=== PATIENT | female | born 1955 | race Hispanic/Latino ===

== ENCOUNTER 2025-03-29 10:43 | Observation (INO) | payer OTHER ==
--- OUTSIDE RECORDS SUMMARY | 2025-03-29 10:58 | XMS REPORT | Continuity of Care Document ---
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 40 mg = 1 tab, PO, BID, # 60 tab, 0 Refill(s) Norris Coates pantoprazol e (ProtoNix) 40 MG EC tablet pantoprazol e (ProtoNix) 40 MG EC tablet 04-01 00:00: 00 Yes 40mg 40 mg = 1 tab, PO, BID, # 60 tab, 0 Refill(s) Norris santhosh Coates Epic levothyroxi ne 25 mcg (0.025 mg) oral tablet 03-31 20:09: 41 Yes 25 microgram = 1 tab, PO, Daily, # 30 tab, 5 Refill(s), [facility] [id number] Norris Coates levothyroxi ne (Synthroid, Levoxyl) 25 MCG tablet levothyroxi ne (Synthroid, Levoxyl) 25 MCG tablet 03-31 00:00: 00 12-08 00:00 :00 No 25ug 25 microgram = 1 tab, PO, Daily, # 30 tab, 5 Refill(s), Pharmacy: [facility] [id number] Norris Coates Epic Premarin 0.625 mg oral tablet 12-14 22:45: 30 Yes 0.625 mg = 1 tab, PO, Daily, # 30 tab, 5 Refill(s), [facility] [id number] Norris Coates estrogens, conjugated, (Premarin) 0.625 MG tablet estrogens, conjugated, (Premarin) 0.625 MG tablet 12-14 00:00: 00 12-08 00:00 :00 No .625mg 0.625 mg = 1 tab, PO, Daily, # 30 tab, 5 Refill(s), Pharmacy: [facility] [id number] Kayenancy santhosh Jaxon Leahy Ciprofloxac in 500 MG Oral Tablet [Cipro] 11-21 21:43: 00 Yes 500 mg = 1 tab, PO, Q12H, # 28 tab, 0 Refill(s) Kayenancy santhosh Coates Lexapro 11-20 23:00: 00 No Notes: (Same as: Lexapro) Kayenancy Milanann NS 1,000 mL 11-20 16:06: 00 No 1,000 mL, Rate: 100 ml/hr, Infuse over: 10 hr, Route: IV, Dosing Weight 72.273 kg, Total Volume: 1,000, Start date: 11/20/14 10:06:00, Duration: 30 day, Stop date: 12/20/14 10:05:00 Kayenancy santhosh Koppel Ciprofloxac in 11-20 16:00: 00 No Notes: Do not refrigerat e Norris Coates Rocephin 11-20 16:00: 00 No Notes: (Same As: Rocephin). Use with 100ml NS mini-bag PLUS and infuse over 30 min Kayenancy santhosh Coates Acetaminoph en 300 MG / Codeine Phosphate 30 MG Oral Tablet [Tylenol with Codeine #3] 11-20 15:50: 00 No Notes: Do not exceed 4gm/day of acetaminop hen. (Same as: Tylenol with Codeine # 3) Norris Coates Tylenol 11-20 15:50: 00 No Notes: Do not exceed 4 gm/day. (Same as: Tylenol) Norris Coates Escitalopra m 10 MG Oral Tablet [Lexapro] 11-20 15:48: 00 Yes 10 mg = 1 tab, PO, BID, # 30 tab, 0 Refill(s) Norris Coates Influenza Virus Vaccine, Inactivated A-[place] (H3N2)-like virus (A-[place] [facility] X-175) strain / Influenza Virus Vaccine, Inactivated A-[place]- 59-2006, IVR-148 (H1N1) strain / Influenza Virus Vaccine, Inactivated , B-[place]-4 -2006-lik 11-20 15:00: 00 No Notes: (Same as: Fluzone Quadrivale nt) Norris Coates Ondansetron 11-20 03:52: 00 No Notes: (Same as: Zofran) Memnancy Coates Zosyn 11-19 23:43: 00 No Notes: (Same as: Zosyn) Infuse over 4 hours. Activate and reconstitu te before use. Dosing based on Piperacill in component Kayenancy Milanann Potassium Chloride 11-19 22:16: 00 No Notes: (Same as: K-Dur 20) "Do Not Crush" With food and full glass of water Kayenancy santhosh Coates Morphine 11-19 21:02: 00 No Notes: (Same as:MORPhin e Sulfate) Kayenancy Milanann Reglan 11-19 21:02: 00 No Notes: (Same as: Reglan) Kayenancy trevizo Jaxon promethazin e 2013-11 15:47: 00 No Krzysztof Lechuga 12.5 mg = 0.5 mL, Injection, IM, Once PRN for severe nausea, first dose 10/20/14 9:47:00 CUSTOMER ACCOUNTS ADVISOR Norris Coates ondansetron 2013-11 15:47: 00 No Krzysztof Lechuga 4 mg = 2 mL, Injection, IV Push, q15min PRN for nausea/vom iting, order duration: 2 doses, first dose 10/20/14 9:47:00 CUSTOMER ACCOUNTS ADVISOR, stop date Limited # of times Norris Coates Demerol HCl 2013-11 15:47: 00 No Krzysztof Lechuga 12.5 mg = 0.25 mL, Injection, IV Push, Once PRN for shivers, first dose 10/20/14 9:47:00 CUSTOMER ACCOUNTS ADVISOR Norris Coates albuterol 2.5 mg/3 mL (0.083%) inhalation solution 2013-11 15:47: 00 No Krzysztof Lechuga 2.5 mg = 3 mL, Soln, NEB, Once PRN for wheezing, first dose 10/20/14 9:47:00 CUSTOMER ACCOUNTS ADVISOR Memoria santhosh Jaxon Dilaudid 2013-11 15:47: 00 No Krzysztof Lechuga 0.5 mg = 0.25 mL, Injection, IV Push, q10min PRN for pain severe (7-10), first dose 10/20/14 9:47:00 CUSTOMER ACCOUNTS ADVISOR Memoria santhosh Coates Saline Lock Flush 2013-11 15:47: 00 No Krzysztof Lechuga 10 mL, Soln, IV Push, As Indicated PRN for flush, first dose 10/20/14 9:47:00 CUSTOMER ACCOUNTS ADVISOR Memoria santhosh Coates Lactated Ringers Injection 2013-11 15:45: 00 No Krzysztof Lechuga IV, start date 10/20/14 9:45:00 CUSTOMER ACCOUNTS ADVISOR, stop date 10/20/14 9:45:00 CUSTOMER ACCOUNTS ADVISOR Memoria santhosh Coates dexamethaso ne 2013-11 15:27: 00 No Krzysztof Lechuga 4 mg = 1 mL, Injection, IV, Once, first dose 10/20/14 9:27:00 CUSTOMER ACCOUNTS ADVISOR, stop date 10/20/14 9:27:00 CUSTOMER ACCOUNTS ADVISOR Memoria santhosh Coates ondansetron 2013-11 15:27: 00 No Krzysztof Lechuga 4 mg = 2 mL, Injection, IV, Once, first dose 10/20/14 9:27:00 CUSTOMER ACCOUNTS ADVISOR, stop date 10/20/14 9:27:00 CUSTOMER ACCOUNTS ADVISOR Memoria santhosh Coates ketorolac 2013-11 15:27: 00 No Krzysztof Lechuag 30 mg = 1 mL, Injection, IV, Once, first dose 10/20/14 9:27:00 CUSTOMER ACCOUNTS ADVISOR, stop date 10/20/14 9:27:00 CUSTOMER ACCOUNTS ADVISOR Memoria santhosh Coates Misc Medication 2013-11 14:56: 00 No Sulaiman Mena 1,000 mL, Soln-IV, IV, Once, first dose 10/20/14 8:56:00 CUSTOMER ACCOUNTS ADVISOR, stop date 10/20/14 8:56:00 CUSTOMER ACCOUNTS ADVISOR Memoria santhosh Coates fentaNYL 2013-11 14:46: 00 No Krzysztof Lechuga 25 mcg = 0.5 mL, Injection, IV, Once, first dose 10/20/14 8:46:00 CUSTOMER ACCOUNTS ADVISOR, stop date 10/20/14 8:46:00 CUSTOMER ACCOUNTS ADVISOR Memnancy Coates ceFAZolin 2013-11 14:43: 00 No Krzysztof Lechuga 1 gm, Soln-IV, IV Piggyback, Once, first dose 10/20/14 8:43:00 CUSTOMER ACCOUNTS ADVISOR, stop date 10/20/14 8:43:00 CUSTOMER ACCOUNTS ADVISOR Memnancy Coates ePHEDrine 2013-11 14:40: 00 No Krzysztof Lechuga 15 mg = 0.3 mL, Injection, IV, Once, first dose 10/20/14 8:40:00 CUSTOMER ACCOUNTS ADVISOR, stop date 10/20/14 8:40:00 CUSTOMER ACCOUNTS ADVISOR Memoria santhosh Coates lidocaine 2013-11 14:30: 00 No Krzysztof Lechuga 2 mL, Injection, IV, Once, first dose 10/20/14 8:30:00 CUSTOMER ACCOUNTS ADVISOR, stop date 10/20/14 8:30:00 CUSTOMER ACCOUNTS ADVISOR Memnancy Coates propofol 2013-11 14:30: 00 No Krzysztof Lechuga 80 mg = 8 mL, Emulsion, IV, Once, first dose 10/20/14 8:30:00 CUSTOMER ACCOUNTS ADVISOR, stop date 10/20/14 8:30:00 CUSTOMER ACCOUNTS ADVISOR Memoria santhosh Coates midazolam 2013-11 14:12: 00 No Krzysztof Lechuga 2 mg = 2 mL, Injection, IV, Once, first dose 10/20/14 8:12:00 CUSTOMER ACCOUNTS ADVISOR, stop date 10/20/14 8:12:00 CUSTOMER ACCOUNTS ADVISOR Memnancy Coates Ultram 50 mg oral tablet 2013-11 13:31: 00 Yes Kiera Middleton 50 mg = 1 tabs, Oral, q4hr, PRN for pain, # 60 tabs, 0 Refill(s) Memnancy Coates ceFAZolin 2013-11 13:00: 00 No Vladimir Mora 1 gm, Soln-IV, IV Piggyback, Once, infuse over 30 minutes, first dose 10/20/14 7:00:00 CUSTOMER ACCOUNTS ADVISOR, stop date 10/20/14 7:00:00 CUSTOMER ACCOUNTS ADVISOR Memoria santhosh Coates LR 1,000 mL 2013-11 12:24: 00 No Vladimir Mora 1,000 mL, IV, 30 mL/hr, start date 10/20/14 6:24:00 CUSTOMER ACCOUNTS ADVISOR Memoria santhosh Coates Lidocaine 2% 0.2 mL IV Start [[facility]] 2013-11 12:24: 00 No Vladimir Mora 0.2 mL, Injection, Subcutaneo us, Once PRN for other (see comment), first dose 10/20/14 6:24:00 CUSTOMER ACCOUNTS ADVISOR Norris Coates B-Complex 50 oral tablet 2013-11 15:47: 00 Yes 1 tabs, Oral, Daily, # 30 tabs, 0 Refill(s), SUPPLEMENT Norris Coates Evonne Caplet 2013-11 15:45: 00 Yes 220 mg, Oral, q8hr, HOLD UNTIL AFTER SURGERY, 0 Refill(s)H OLD UNTIL AFTER SURGERY Norris Coates Misc Medication 07-09 19:49: 00 No Ayo Lay 700 mL, Soln-IV, IV, Once, first dose 07/09/14 14:49:00 CDT, stop date 07/09/14 14:49:00 CDT Norris Coates Saline Lock Flush 07-09 19:47: 00 No Krzysztof Lechuga 10 mL, Soln, IV Push, As Indicated PRN for flush, first dose 07/09/14 14:47:00 CDT Norris Coates albuterol 2.5 mg/3 mL (0.083%) inhalation solution 07-09 19:47: 00 No Krzysztof Lechuga 2.5 mg = 3 mL, Soln, NEB, Once PRN for wheezing, first dose 07/09/14 14:47:00 CDT Norris Coates ondansetron 07-09 19:47: 00 No Krzysztof Lechuga 4 mg = 2 mL, Injection, IV Push, q15min PRN for nausea/vom iting, order duration: 2 doses, first dose 07/09/14 14:47:00 CDT, stop date Limited # of times Norris Coates Dilaudid 07-09 19:47: 00 No Krzysztof Lechuga 0.5 mg = 0.25 mL, Injection, IV Push, q10min PRN for pain severe (7-10), first dose 07/09/14 14:47:00 CDT Norris Coates Demerol HCl 07-09 19:47: 00 No Krzysztof Lechuga 12.5 mg = 0.25 mL, Injection, IV Push, Once PRN for shivers, first dose 07/09/14 14:47:00 CDT Memnancy Coates promethazin e 07-09 19:47: 00 No Krzysztof Lechuga 12.5 mg = 0.5 mL, Injection, IM, Once PRN for severe nausea, first dose 07/09/14 14:47:00 CDT Memnancy Coates ketorolac 07-09 18:54: 00 No Krzysztof Lechuga 30 mg = 1 mL, Injection, IV, Once, first dose 07/09/14 13:54:00 CDT, stop date 07/09/14 13:54:00 CDT Memoria santhosh Coates dexamethaso ne 07-09 18:54: 00 No Krzysztof Lechuga 8 mg = 2 mL, Injection, IV, Once, first dose 07/09/14 13:54:00 CDT, stop date 07/09/14 13:54:00 CDT Memnancy Coates ondansetron 07-09 18:54: 00 No Krzysztof Lechuga 4 mg = 2 mL, Injection, IV, Once, first dose 07/09/14 13:54:00 CDT, stop date 07/09/14 13:54:00 CDT Memnancy Coates ceFAZolin 07-09 18:40: 00 No Krzysztof Lechuga 2 gm, Soln-IV, IV Piggyback, Once, first dose 07/09/14 13:40:00 CDT, stop date 07/09/14 13:40:00 CDT Memnancy Coates propofol 07-09 18:33: 00 No Krzysztof Lechuga 100 mg = 10 mL, Emulsion, IV, Once, first dose 07/09/14 13:33:00 CDT, stop date 07/09/14 13:33:00 CDT Memnancy Coates lidocaine 07-09 18:33: 00 No Krzysztof Lechuga 2 mL, Injection, IV, Once, first dose 07/09/14 13:33:00 CDT, stop date 07/09/14 13:33:00 CDT Memnancy Coates fentaNYL 07-09 18:18: 00 No Krzysztof Lechuga 50 mcg = 1 mL, Injection, IV, Once, first dose 07/09/14 13:18:00 CDT, stop date 07/09/14 13:18:00 CDT Norris Coates midazolam 07-09 18:18: 00 No Krzysztof Lechuga 1 mg = 1 mL, Injection, IV, Once, first dose 07/09/14 13:18:00 CDT, stop date 07/09/14 13:18:00 CDT Norris Coates ceFAZolin 07-09 18:00: 00 No Vladimir Mora 1 gm, Soln-IV, IV Piggyback, Once, infuse over 30 minutes, first dose 07/09/14 13:00:00 CDT, stop date 07/09/14 13:00:00 CDT Norris Coates Babcock 10 mg-325 mg oral tablet 07-09 17:23: 00 No Kiera Middleton 1 tabs, Oral, q4hr, PRN for pain, # 40 tabs, 0 Refill(s) Norris Coates Lexapro 10 mg oral tablet 07-09 17:23: 00 Yes mg tabs, Oral, BID, 0 Refill(s) Norris Coates LR 1,000 mL 07-09 17:09: 00 No Vladimir Mora 1,000 mL, IV, 30 mL/hr, start date 07/09/14 12:09:00 CDT Norris Coates Lidocaine 2% 0.2 mL IV Start [[facility]] 07-09 17:09: 00 No John Hoyos 0.2 mL, Injection, Subcutaneo us, Once PRN for other (see comment), first dose 07/09/14 12:09:00 CDT Norris Coates Multiple Vitamins oral tablet 11-06 21:35: 00 Yes 1 tabs, Oral, Daily, 0 Refill(s), supplement Norris Coates RISPERIDONE 0.5 MG ORAL TAB 2005-11 00:00: 00 12-27 00:00 :00 No 1 Tab Oral BID [facility] Immunizations Ordered Immunization Name Filled Immunization Name Date Status Comments Source SARS-COV-2 COVID-19 PFIZER VACCINE 2024-07-25 09:30:00 Completed [facility] SARS-COV-2 COVID-19 PFIZER VACCINE 2024-06-18 00:00:00 Completed [facility] SARS-COV-2 COVID-19 PFIZER VACCINE 2024-04-22 09:00:00 Completed [facility] SARS-COV-2 COVID-19 PFIZER VACCINE 2024-04-17 15:30:00 Completed [facility] SARS-COV-2 COVID-19 PFIZER VACCINE 2024-04-17 15:00:00 Completed [facility] SARS-COV-2 COVID-19 PFIZER VACCINE 2024-04-17 00:00:00 Completed [facility] SARS-COV-2 COVID-19 PFIZER VACCINE 2024-04-12 00:00:00 Completed [facility] SARS-COV-2 COVID-19 PFIZER VACCINE 2024-04-08 00:00:00 Completed [facility] SARS-COV-2 COVID-19 PFIZER VACCINE 2024-04-05 00:00:00 Completed [facility] SARS-COV-2 COVID-19 PFIZER VACCINE 2023-11-21 11:28:04 Completed [facility] SARS-COV-2 COVID-19 PFIZER VACCINE 2023-11-21 11:27:09 Completed [facility] SARS-COV-2 COVID-19 PFIZER VACCINE 2023-11-21 00:00:00 Completed [facility] Comirnaty 12+ ( Formula) Comirnaty 12+ ( Formula) 2023-09-29 00:00:00 Completed Ervin Cavazos RSV Recombinant, Arexvy 0.5ML RSV Recombinant, Arexvy 0.5ML 2023-09-18 00:00:00 Completed Ervin Cavazos influenza, high-dose, quadrivalent influenza, high-dose, quadrivalent 2023-09-11 00:00:00 Completed Ervin Cavazos SHINGRIX VACCINE SHINGRIX VACCINE 2023-05-05 00:00:00 Completed Ervin Cavazos SHINGRIX VACCINE SHINGRIX VACCINE 2023-03-05 00:00:00 Completed Ervin F Dirk influenza, high-dose, quadrivalent influenza, high-dose, quadrivalent 2022-07-30 00:00:00 Completed Ervin Cavazos influenza virus vaccine, inactivated Unknown Completed [facility] influenza virus vaccine, inactivated<sup>1</ sup> Unknown Completed [facility] influenza virus vaccine, inactivated<sup>1</ sup> Unknown Completed [facility] influenza virus vaccine, inactivated Unknown Completed [facility] influenza virus vaccine, inactivated Unknown Completed [facility] influenza virus vaccine, inactivated<sup>1</ sup> Unknown Completed [facility] influenza virus vaccine, inactivated Unknown Completed [facility] influenza virus vaccine, inactivated Unknown Completed [facility] influenza virus vaccine, inactivated<sup>1</ sup> Unknown Completed [facility] influenza virus vaccine, inactivated Unknown Completed [facility] influenza virus vaccine, inactivated Unknown Completed [facility] influenza virus vaccine, inactivated<sup>1</ sup> Unknown Completed [facility] influenza virus vaccine, inactivated Unknown Completed [facility] influenza virus vaccine, inactivated Unknown Completed [facility] influenza virus vaccine, inactivated<sup>1</ sup> Unknown Completed [facility] influenza virus vaccine, inactivated Unknown Completed [facility] influenza virus vaccine, inactivated<sup>1</ sup> Unknown Completed [facility] influenza virus vaccine, inactivated<sup>1</ sup> Unknown Completed [facility] Vital Signs Vital Name Observation Time Observation Value Comments S ource Systolic blood pressure 2025-03-29 15:26:00 109 mm[Hg] [facility] Diastolic blood pressure 2025-03-29 15:26:00 77 mm[Hg] [facility] Heart rate 2025-03-29 15:26:00 85 /min [facility] Body temperature 2025-03-29 15:26:00 36.61 Kimberly [facility] Respiratory rate 2025-03-29 15:26:00 14 /min [facility] Body weight 2025-03-29 15:26:00 57.199 kg [facility] BMI 2025-03-29 15:26:00 23.06 kg/m2 [facility] Oxygen saturation in Arterial blood by Pulse oximetry 2025-03-29 15:26:00 97 /min [facility] Systolic blood pressure 2024-12-27 15:06:00 168 mm[Hg] [facility] Diastolic blood pressure 2024-12-27 15:06:00 96 mm[Hg] [facility] Heart rate 2024-12-27 15:05:00 69 /[facility] 2024-12-27 15:05:00 36.56 Kimberly [facility] Respiratory rate 2024-12-27 15:05:00 19 /min [facility] Body height 2024-12-27 15:05:00 157.5 cm [facility] Body weight 2024-12-27 15:05:00 57.561 kg [facility] BMI 2024-12-27 15:05:00 23.21 kg/m2 [facility] Oxygen saturation in Arterial blood by Pulse oximetry 2024-12-27 15:05:00 99 /min [facility] Systolic blood pressure 2024-12-08 00:07:00 119 mm[Hg] [facility] Diastolic blood pressure 2024-12-08 00:07:00 82 mm[Hg] [facility] Heart rate 2024-12-08 00:07:00 69 /min [facility] Body temperature 2024-12-08 00:07:00 36.78 Kimberly [facility] Respiratory rate 2024-12-08 00:07:00 18 /min [facility] Oxygen saturation in Arterial blood by Pulse oximetry 2024-12-08 00:07:00 99 /min [facility] kennedy [facility] Body height 2024-12-07 20:35:[address] [facility] Body weight 2024-12-07 20:35:00 53 kg [facility] 2024-12-07 20:35:00 21.37 kg/m2 [facility] Systolic blood pressure 2024-12-08 00:07:00 119 mm[Hg] [facility] Diastolic blood pressure 2024-12-08 00:07:00 82 mm[Hg] [facility] Heart rate 2024-12-08 00:07:00 69 /min Memor ial J[facility] Body temperature 2024-12-08 00:07:00 36.78 Kimberly Carlos Leahy Respiratory rate 2024-12-08 00:07:00 18 /min Carlos Leahy Oxygen saturation in Arterial blood by Pulse oximetry 2024-12-08 00:07:00 99 /min Carlos Leahy Body height 2024-12-07 20:35:00 157.5 cm Maciel Coates [facility] Body weight 2024-12-07 20:35:00 53 kg Maciel Coates [facility] BMI 2024-12-07 20:35:00 21.37 kg/m2 Maciel pastor Coates [facility] Systolic blood pressure 2024-10-28 16:27:00 150 mm[Hg] [facility] Diastolic blood pressure 2024-10-28 16:27:00 80 mm[Hg] [facility] Heart rate 2024-10-28 16:27:00 65 /min [facility] Body height 2024-10-28 16:27:00 157.5 cm [facility] Body weight 2024-10-28 16:27:00 59.194 kg [facility] BMI 2024-10-28 16:27:00 23.87 kg/m2 [facility] Oxygen saturation in Arterial blood by Pulse oximetry 2024-10-28 16:27:00 99 /min [facility] Systolic blood pressure 2024-09-24 16:41:00 146 mm[Hg] [facility] Diastolic blood pressure 2024-09-24 16:41:00 74 mm[Hg] [facility] Heart rate 2024-09-24 16:41:00 70 /min [facility] Body height 2024-09-24 16:41:00 157.5 cm [facility] 2024-09-24 16:41:00 57.97 kg [facility] BMI 2024-09-24 16:41:00 23.37 kg/m2 [facility] Oxygen [facility] in Arterial blood by Pulse oximetry 2024-09-24 16:41:00 99 /min [facility] Systolic blood pressure 2024-07-25 14:09:00 119 mm[Hg] [facility] Diastolic blood pressure 2024-07-25 14:09:00 74 mm[Hg] [facility] Heart rate 2024-07-25 14:09:00 80 /min [facility] 2024-07-25 14:09:00 18 /min [facility] Body height 2024-07-25 14:09:[address] [facility] Body weight 2024-07-25 14:09:[address] [facility] BMI 2024-07-25 14:09:00 22.95 kg/m2 [facility] Oxygen [facility] in Arterial blood by Pulse oximetry 2024-07-25 14:09:00 95 /min [facility] Systolic blood pressure 2024-04-22 13:47:00 130 mm[Hg] [facility] Diastolic blood pressure 2024-04-22 13:47:00 81 mm[Hg] [facility] Heart rate 2024-04-22 13:47:00 80 /min [facility] Body height 2024-04-22 13:47:[address] [facility] Body weight 2024-04-22 13:47:00 59.421 kg [facility] BMI 2024-04-22 13:47:00 23.96 kg/m2 [facility] Oxygen saturation in Arterial blood by Pulse oximetry 2024-04-22 13:47:00 97 /min [facility] Systolic blood pressure 2024-03-18 18:57:00 128 mm[Hg] [facility] Diastolic blood pressure 2024-03-18 18:57:00 67 mm[Hg] [facility] Heart rate 2024-03-18 18:57:00 64 /min [facility] Body height 2024-03-18 18:57:00 165.1 cm [facility] weight 2024-03-18 18:57:00 59.829 kg [facility] 2024-03-18 18:57:00 21.95 kg/m2 [facility] Oxygen saturation in Arterial blood by Pulse oximetry 2024-03-18 18:57:00 97 /min [place] [facility] BP Systolic 2025-01-23 15:39:00 140 mm[Hg] Step hen Naun Cavazos BP Diastolic 2025-01-23 15:39:00 87 mm[Hg] Alphonso phen Naun Cavazos Weight Measured 2025-01-23 15:39:00 125.60 pounds Ervin Cavazos Height Measured 2025-01-23 15:39:00 62.00 inches Ervin Cavazos Body Temperature 2025-01-23 15:39:00 97.30 degrees Ervin Cavazos Heart Rate 2025-01-23 15:39:00 82.00 /min Alia en Naun Cavazos Respiratory Rate 2025-01-23 15:39:00 17.00 /min Ervin Magallon Dirk Systolic blood pressure 2024-12-27 15:06:00 168 mm[Hg] [facility] Diastolic blood pressure 2024-12-27 15:06:00 96 mm[Hg] [facility] Heart rate 2024-12-27 15:05:00 69 /min [facility] Body temperature 2024-12-27 15:05:00 36.56 Kimberly [facility] Respiratory rate 2024-12-27 15:05:00 19 /min [facility] Body height 2024-12-27 15:05:00 157.5 cm [facility] Body weight 2024-12-27 15:05:00 57.561 kg [facility] BMI 2024-12-27 15:05:00 23.21 kg/m2 [facility] Oxygen saturation in Arterial blood by Pulse oximetry 2024-12-27 15:05:00 99 /min [facility] BP Systolic 2024-12-10 14:37:00 147 mm[Hg] Step hen Naun Cavazos BP Diastolic 2024-12-10 14:37:00 82 mm[Hg] Alphonso phen Naun Cavazos Weight Measured 2024-12-10 14:37:00 126.60 pounds Ervin Cavazos Height Measured 2024-12-10 14:37:00 62.00 inches Ervin F Dirk Body Temperature 2024-12-10 14:37:00 97.70 degrees Ervin F Dirk Heart Rate 2024-12-10 14:37:00 67.00 /min Alia en F Dirk Respiratory Rate 2024-12-10 14:37:00 17.00 /min Ervin F Dirk BP Systolic 2024-09-16 08:30:00 136 mm[Hg] Step hen F Dirk BP Diastolic 2024-09-16 08:30:00 89 mm[Hg] Alphonso phen F Dirk Weight Measured 2024-09-16 08:30:00 125.60 pounds Ervin F Dirk Height Measured 2024-09-16 08:30:00 62.00 inches Ervin F Dirk Body Temperature 2024-09-16 08:30:00 97.40 degrees Ervin F Dirk Heart Rate 2024-09-16 08:30:00 72.00 /min Alia en F Dirk Respiratory Rate 2024-09-16 08:30:00 17.00 /min Ervin F Dirk BP Systolic 2024-09-12 16:14:00 126 mm[Hg] Step hen F Dirk BP Diastolic 2024-09-12 16:14:00 77 mm[Hg] Alphonso phen F Dirk Weight Measured 2024-09-12 16:14:00 126.80 pounds Ervin F Dirk Height Measured 2024-09-12 16:14:00 62.00 inches Ervin F Dirk Body Temperature 2024-09-12 16:14:00 97.90 degrees Ervin F Dirk Heart Rate 2024-09-12 16:14:00 79.00 /min Alia en F Dirk Respiratory Rate 2024-09-12 16:14:00 16.00 /min Ervin F Dirk BP Systolic 2024-07-25 14:41:00 123 mm[Hg] Step hen F Dirk BP Diastolic 2024-07-25 14:41:00 78 mm[Hg] Alphosno phen F Dirk Weight Measured 2024-07-25 14:41:00 126.80 pounds Ervin F Dirk Height Measured 2024-07-25 14:41:00 62.00 inches Ervin F Dirk Body Temperature 2024-07-25 14:41:00 98.10 degrees Ervin F Dirk Heart Rate 2024-07-25 14:41:00 86.00 /min Alia en F Dirk Respiratory Rate 2024-07-25 14:41:00 17.00 /min Ervin F Dirk BP Systolic 2024-07-16 16:39:00 143 mm[Hg] Step hen F Dirk BP Diastolic 2024-07-16 16:39:00 83 mm[Hg] Alphonso phen F Dirk Weight Measured 2024-07-16 16:39:00 127.10 pounds Ervin F Dirk Height Measured 2024-07-16 16:39:00 62.00 inches Ervin F Dirk Body Temperature 2024-07-16 16:39:00 97.30 degrees Ervin F Dirk Heart Rate 2024-07-16 16:39:00 75.00 /min Alia en F Dirk Respiratory Rate 2024-07-16 16:39:00 17.00 /min Ervin F Dirk BP Systolic 2024-06-03 09:13:00 Step hen F Dirk BP Diastolic 2024-06-03 09:13:00 Alphonso phen F Dirk Weight Measured 2024-06-03 09:13:00 124.40 pounds Ervin F Dirk Height Measured 2024-06-03 09:13:00 62.00 inches Ervin F Dirk Body Temperature 2024-06-03 09:13:00 97.90 degrees Ervin F Dirk Heart Rate 2024-06-03 09:13:00 Alia en F Drik Respiratory Rate 2024-06-03 09:13:00 86.00 /min Ervin F Dirk BP Systolic 2024-05-07 09:50:00 132 mm[Hg] Step hen F Dirk BP Diastolic 2024-05-07 09:50:00 97 mm[Hg] Alphonso phen F Dirk Weight Measured 2024-05-07 09:50:00 127.40 pounds Ervin F Dirk Height Measured 2024-05-07 09:50:00 62.00 inches Ervin F Dirk Body Temperature 2024-05-07 09:50:00 98.30 degrees Ervin F Dirk Heart Rate 2024-05-07 09:50:00 102.00 /min Step hen F Dirk Respiratory Rate 2024-05-07 09:50:00 Ervin F Dirk BP Systolic 2024-04-18 14:19:00 121 mm[Hg] Step hen F Dirk BP Diastolic 2024-04-18 14:19:00 83 mm[Hg] Alphonso phen F Dirk Weight Measured 2024-04-18 14:19:00 131.10 pounds Ervin F Dirk Height Measured 2024-04-18 14:19:00 62.00 inches Ervin F Dirk Body Temperature 2024-04-18 14:19:00 98.20 degrees Ervin F Dirk Heart Rate 2024-04-18 14:19:00 82.00 /min Alia en F Dirk Respiratory Rate 2024-04-18 14:19:00 16.00 /min Ervin F Dirk BP Systolic 2024-03-04 11:25:00 Step hen F Dirk BP Diastolic 2024-03-04 11:25:00 Alphonso phen F Dirk Weight Measured 2024-03-04 11:25:00 Ervin F Dirk Height Measured 2024-03-04 11:25:00 Ervin F Dirk Body Temperature 2024-03-04 11:25:00 Ervin F Dirk Heart Rate 2024-03-04 11:25:00 Alia en F Dirk Respiratory Rate 2024-03-04 11:25:00 Ervin F Dirk BP Systolic 2024-02-26 10:26:00 172 mm[Hg] Step hen F Dirk BP Diastolic 2024-02-26 10:26:00 90 mm[Hg] Alphonso phen F Dirk Weight Measured 2024-02-26 10:26:00 127.60 pounds Ervin F Dirk Height Measured 2024-02-26 10:26:00 62.00 inches Ervin F Dirk Body Temperature 2024-02-26 10:26:00 98.70 degrees Ervin F Dirk Heart Rate 2024-02-26 10:26:00 77.00 /min Alia en F Dirk Respiratory Rate 2024-02-26 10:26:00 16.00 /min Ervin F Dirk Heart Rate 2024-02-19 23:48:00 [facility] Systolic (mm Hg) 2024-02-19 23:48:00 [facility] Diastolic (mm Hg) 2024-02-19 23:48:00 [facility] Height 2024-02-19 20:41:00 5 [ft_i] [facility] BMI Calculated 2024-02-19 20:41:00 [facility] Weight 2024-02-19 20:41:00 [facility] Temperature Oral (F) 2024-02-19 20:41:00 98.5 F [facility] BP Systolic 2024-02-12 08:02:00 131 mm[Hg] Step hen F Dirk BP Diastolic 2024-02-12 08:02:00 86 mm[Hg] Alphonso phen F Dirk Weight Measured 2024-02-12 08:02:00 127.00 pounds Ervin F Dirk Height Measured 2024-02-12 08:02:00 62.00 inches Ervin F Dirk Body Temperature 2024-02-12 08:02:00 98.10 degrees Ervin F Dirk Heart Rate 2024-02-12 08:02:00 93.00 /min Alia en F Dirk Respiratory Rate 2024-02-12 08:02:00 18.00 /min Ervin F Dirk BP Systolic 2024-02-09 14:00:00 134 mm[Hg] Step hen F Dirk BP Diastolic 2024-02-09 14:00:00 84 mm[Hg] Alphonso phen F Dirk Weight Measured 2024-02-09 14:00:00 129.80 pounds Ervin F Dirk Height Measured 2024-02-09 14:00:00 62.00 inches Ervin F Dirk Body Temperature 2024-02-09 14:00:00 97.90 degrees Ervin F Dirk Heart Rate 2024-02-09 14:00:00 74.00 /min Alia en F Dirk Respiratory Rate 2024-02-09 14:00:00 17.00 /min Ervin F Dirk BP Systolic 2024-02-08 16:08:00 138 mm[Hg] Step hen F Dirk BP Diastolic 2024-02-08 16:08:00 88 mm[Hg] Alphonso phen F Dirk Weight Measured 2024-02-08 16:08:00 129.80 pounds Ervin F Dirk Height Measured 2024-02-08 16:08:00 62.00 inches Ervin F Dirk Body Temperature 2024-02-08 16:08:00 97.70 degrees Ervin F Dirk Heart Rate 2024-02-08 16:08:00 67.00 /min Alia en F Dirk Respiratory Rate 2024-02-08 16:08:00 16.00 /min Ervin F Dirk BP Systolic 2023-11-13 08:36:00 123 mm[Hg] Step hen F Dirk BP Diastolic 2023-11-13 08:36:00 87 mm[Hg] Alphonso phen F Dirk Weight Measured 2023-11-13 08:36:00 120.60 pounds Ervin F Dirk Height Measured 2023-11-13 08:36:00 62.00 inches Ervin F Dirk Body Temperature 2023-11-13 08:36:00 98.10 degrees Ervin F Dirk Heart Rate 2023-11-13 08:36:00 78.00 /min Alia en F Dirk Respiratory Rate 2023-11-13 08:36:00 17.00 /min Ervin F Dirk BP Systolic 2023-11-13 08:16:00 124 mm[Hg] Step hen F Dirk BP Diastolic 2023-11-13 08:16:00 88 mm[Hg] Alphonso phen F Dirk Weight Measured 2023-11-13 08:16:00 120.80 pounds Ervin F Dirk Height Measured 2023-11-13 08:16:00 62.00 inches Ervin F Dirk Body Temperature 2023-11-13 08:16:00 98.10 degrees Ervin F Dirk Heart Rate 2023-11-13 08:16:00 76.00 /min Alia en F Dirk Respiratory Rate 2023-11-13 08:16:00 16.00 /min Ervin F Dirk BP Systolic 2023-10-11 10:24:00 127 mm[Hg] Step hen F Dirk BP Diastolic 2023-10-11 10:24:00 77 mm[Hg] Alphonso phen F Dirk Weight Measured 2023-10-11 10:24:00 126.20 pounds Ervin F Dirk Height Measured 2023-10-11 10:24:00 62.00 inches Ervin F Dirk Body Temperature 2023-10-11 10:24:00 97.50 degrees Ervin F Dirk Heart Rate 2023-10-11 10:24:00 69.00 /min Alia en F Dirk Respiratory Rate 2023-10-11 10:24:00 Ervin F Dirk BP Systolic 2023-08-17 08:47:00 125 mm[Hg] Step hen F Dirk BP Diastolic 2023-08-17 08:47:00 83 mm[Hg] Alphonso phen F Dirk Weight Measured 2023-08-17 08:47:00 119.20 pounds Ervin F Dirk Height Measured 2023-08-17 08:47:00 62.00 inches Ervin F Dirk Body Temperature 2023-08-17 08:47:00 97.90 degrees Ervin F Dirk Heart Rate 2023-08-17 08:47:00 94.00 /min Alia en F Dirk Respiratory Rate 2023-08-17 08:47:00 Ervin F Dirk BP Systolic 2023-07-19 11:08:00 126 mm[Hg] Step hen F Dirk BP Diastolic 2023-07-19 11:08:00 80 mm[Hg] Alphonso phen F Dirk Weight Measured 2023-07-19 11:08:00 123.20 pounds Ervin F Dirk Height Measured 2023-07-19 11:08:00 62.00 inches Ervin F Dirk Body Temperature 2023-07-19 11:08:00 98.20 degrees Ervin F Dirk Heart Rate 2023-07-19 11:08:00 72.00 /min Alia en F Dirk Respiratory Rate 2023-07-19 11:08:00 18.00 /min Ervin F Dirk BP Systolic 2023-07-18 13:33:00 106 mm[Hg] Step hen F Dirk BP Diastolic 2023-07-18 13:33:00 69 mm[Hg] Alphonso phen F Dirk Weight Measured 2023-07-18 13:33:00 121.20 pounds Ervin F Dirk Height Measured 2023-07-18 13:33:00 62.00 inches Ervin F Dirk Body Temperature 2023-07-18 13:33:00 98.60 degrees Ervin F Dirk Heart Rate 2023-07-18 13:33:00 94.00 /min Alia en F Dirk Respiratory Rate 2023-07-18 13:33:00 Ervin F Dirk Weight 2021-12-02 15:30:00 [facility]02 [facility] (mm Hg) 2021-12-02 15:30:00 [facility] Systolic (mm Hg) 2021-12-02 15:30:00 [facility] Weight 2021-09-01 16:15:00 [facility] Height 2021-09-01 16:15:00 [facility] Diastolic (mm Hg) 2021-09-01 16:15:00 [facility] Systolic (mm Hg) 2021-09-01 16:15:00 [facility] Diastolic (mm Hg) 2014-11-21 22:41:00 [facility] Temperature Oral (F) 2014-11-21 22:41:00 98.5 F [facility] Heart Rate 2014-11-21 22:41:00 [facility] Systolic (mm Hg) 2014-11-21 22:41:00 [facility] Respitory Rate 2014-11-21 22:41:00 [facility] Heart Rate 2014-11-21 17:55:00 [facility] Temperature Oral (F) 2014-11-21 17:55:00 97.9 F [facility] Diastolic (mm Hg) 2014-11-21 17:55:00 [facility] Respitory Rate 2014-11-21 17:55:00 [facility] Systolic (mm Hg) 2014-11-21 17:55:00 [facility] Diastolic (mm Hg) 2014-11-21 13:34:00 [facility] Heart Rate 2014-11-21 13:34:00 [facility] Temperature Oral (F) 2014-11-21 13:34:00 98.6 F [facility] Systolic (mm Hg) 2014-11-21 13:34:00 [facility] Respitory Rate 2014-11-21 13:34:00 [facility] Height 2014-11-19 20:06:00 157.48 cm [facility] Weight 2014-11-19 20:06:00 [facility] BMI Calculated 2014-11-19 20:06:00 [facility] Respitory Rate 2014-10-20 16:45:00 [facility] Diastolic (mm Hg) 2014-10-20 16:45:00 [facility] Systolic (mm Hg) 2014-10-20 16:45:00 [facility] Heart Rate 2014-10-20 16:40:00 [facility] Diastolic (mm Hg) 2014-10-20 16:40:00 [facility] Respitory Rate 2014-10-20 16:40:00 [facility] Systolic (mm Hg) 2014-10-20 16:40:00 [facility] Systolic (mm Hg) 2014-10-20 16:30:00 [facility] Diastolic (mm Hg) 2014-10-20 16:30:00 [facility] Respitory Rate 2014-10-20 16:30:00 [facility] Heart Rate 2014-10-20 16:30:00 [facility] Heart Rate 2014-10-20 16:20:00 [facility] Temperature Oral (F) 2014-10-20 15:40:00 36.4 Kimberly [facility] Height 2014-10-20 12:51:00 157.48 cm [facility] Weight 2014-10-20 12:51:00 [facility] Temperature Oral (F) 2014-10-20 12:51:00 36.7 Kimberly [facility] Height 2014-10-15 15:41:00 158 cm [facility] Weight 2014-10-15 15:41:00 [facility] Diastolic (mm Hg) 2014-07-09 20:49:00 [facility] Systolic (mm Hg) 2014-07-09 20:49:00 [facility] Respitory Rate 2014-07-09 20:49:00 [facility] Diastolic (mm Hg) 2014-07-09 20:20:00 [facility] Systolic (mm Hg) 2014-07-09 20:20:00 [facility] Heart Rate 2014-07-09 20:20:00 [facility] Respitory Rate 2014-07-09 20:20:00 [facility] Diastolic (mm Hg) 2014-07-09 20:10:00 [facility] Systolic (mm Hg) 2014-07-09 20:10:00 [facility] Heart Rate 2014-07-09 20:10:00 [facility] Respitory Rate 2014-07-09 20:10:00 [facility] Heart Rate 2014-07-09 20:00:00 [facility] Temperature Oral (F) 2014-07-09 19:40:00 36.8 Kimberly [facility] Height 2014-07-09 17:10:00 158 cm [facility] Weight 2014-07-09 17:10:00 [facility] Temperature Oral (F) 2014-07-09 17:10:00 36.3 Kimberly [facility] Height 2014-06-24 20:19:00 160.02 cm [facility] Weight 2014-06-24 20:19:00 [facility] Procedures Procedure Date / Time Performed Performing Clinician Source CT CERVICAL SPINE WO IV CONTRAST 2024-12-07 22:31:37 Vicki Melvin [facility] Epic CT MAXILLOFACIAL WO IV CONTRAST 2024-12-07 22:31:27 Vicki Melvin [facility] CT BRAIN WO IV CONTRAST 2024-12-07 22:31:17 Vicki Healy [facility] MR BRAIN WO CONTRAST 2024-08-02 18:38:05 Alessandro Mcduffie [facility] REFERRAL- REQUEST/RESPONSE 2024-03-04 18:12:37 Doctor Unassigned, [place] [facility] BI DIAGNOSTIC TOMOSYNTHESIS LEFT 2023-11-21 18:17:18 Requisition, Paper [facility] BI DIAGNOSTIC TOMOSYNTHESIS LEFT 2023-11-21 18:17:18 Requisition, Paper [facility] CONSENT/REFUSAL FOR DIAGNOSIS AND TREATMENT 2023-11-21 17:25:00 Doctor Unassigned, [place] [facility] ARTHROSCOPY KNEE W/MEDIAL OR LATERAL MEN (Left)<sup>1</sup> 2014-10-20 14:59:00 Vladimir Mora [facility] ARTHROSCOPY KNEE W/SYNOVECTOMY-2 OR MORE (Left)<sup>2</sup> 2014-10-20 14:59:00 Vladimir Mora [facility] Arthroscopy of knee with meniscus repair 2014-10-06 06:00:00 Carlos Coates LEFT HAND CYST REMOVAL 2014-09-06 00:00:00 [facility] RIGHT KNEE SCOPE 2014-08-06 00:00:00 Maciel [facility] Procedure on finger 2013-11-06 00:00:00 [facility] Hysterectomy and unilateral salpingo-oophorectomy sample 1993-11-06 00:00:00 [facility] Tonsillectomy 1972-11-06 00:00:00 Norris trevizo [facility] Blepharoplasty [facility] marlene Abdominal hysterectomy and left salpingo-oophorectomy [facility] Arthroscopy of knee [facility] Hysterectomy [facility] Encounters Start Date/Time End Date/Time Encounter Type Admission Type Attending Clinicians Care Facility Care Department Encounter ID Source 2025-10-27 10:20:00 2025-10-27 10:20:00 Outpatient R TITI SALVADOR HOWARD [facility] [id number] [facility] 2025-03-29 10:20:00 2025-03-29 10:20:00 Outpatient R UNKNOWN, ATTENDING [facility] [id number] [facility] 2025-03-29 10:00:00 2025-03-29 10:20:00 Nurse Visit R Nurse, [facility] Unknown, Attending Nurse, [facility] 1.2.840.114 350.1.13.10 4.2.7.2.686 [id number] [facility] 2025-03-24 00:00:00 2025-03-24 10:45:05 Telephone Titi Salvador [facility] 1.2.840.114 350.1.13.10 4.2.7.2.686 [id number] [facility] 2025-03-13 16:46:29 2025-03-13 16:46:29 Outpatient SFA SFA [id number] Ervin Cavazos 2025-02-06 16:56:23 2025-02-06 16:56:23 Outpatient SFA SFA [id number] Ervin Magallon Dirk 2025-01-23 17:15:48 2025-01-23 17:15:48 Outpatient SFA SFA [id number] Evrin Cavazos 2025-01-23 00:00:00 2025-01-23 00:00:00 Outpatient Visit SFA [id number] Ervin Cavazos 2025-01-08 16:53:10 2025-01-08 16:53:[address] [facility] [id number] Ervin Cavazos 2024-12-27 09:20:00 2024-12-27 09:26:04 Outpatient R TITI SALVADOR [facility] [id number] [facility] 2024-12-27 09:20:00 2024-12-27 09:26:04 Office Visit Titi Salvador Gene 1.2.840.1 [id number] 3.104.2.7 .3.140837 .8 [id number] [facility] 2024-12-27 00:00:00 2024-12-27 00:00:00 Scanned Documents Doctor Unassigned, [place] 1.2.840.1 53457.1.1 3.104.2.7 .3.541190 .8 [id number] [facility] 2024-12-27 00:00:00 2024-12-27 00:00:00 Travel 1.2.840.1 13128.1.1 3.104.2.7 .3.872030 .8 1.2.840.114 350.1.13.10 4.2.7.3.698 [id number] [facility] 2024-03-04 00:00:00 2024-12-21 02:09:27 Orders Only Doctor Unassigned, [place] Doctor Unassigned, [place] [facility] 1.2.840.114 350.1.13.10 4.2.7.2.686 [id number] [facility] 2024-12-10 14:31:30 2024-12-10 14:31:[address] [facility] [id number] Ervin Cavazos 2024-12-10 00:00:00 2024-12-10 00:00:[address] [facility] [id number] Ervin Cavazos 2024-12-07 20:53:00 2024-12-08 00:38:00 Emergency Maru Melendez Kendall Ivan [facility] 1.2.840.114 350.1.13.70 8.2.7.2.686 [id number] [facility] 2024-12-07 20:53:00 2024-12-08 00:38:00 Emergency Emergency CHETAN RAMSEY [facility] General Medicine [id number] [id number] 2024-11-26 17:31:29 2024-11-26 17:31:29 Outpatient [facility] [id number] Ervin Cavazos 2024-11-08 00:00:00 2024-11-08 11:25:06 Refill Titi Salvador Gene 1.2.840.1 98327.1.1 3.104.2.7 .3.296697 .8 [id number] [facility] 2024-11-08 00:00:00 2024-11-08 09:28:53 Telephone Titi Salvador Gene 1.2.840.1 12327.1.1 3.104.2.7 .3.113957 .8 [id number] [facility] 2024-11-07 00:00:00 2024-11-07 11:20:13 Clinic Assessment Titi Salvador Gene 1.2.840.1 19771.1.1 3.104.2.7 .3.874486 .8 [id number] [facility] 2024-10-28 10:00:00 2024-10-28 11:20:22 Outpatient R TITI SALVADOR [facility] [id number] [facility] 2024-10-28 10:00:00 2024-10-28 11:20:22 Office Visit Titi Salvador 1.2.840.1 64536.1.1 3.104.2.7 .3.707961 .8 [id number] [facility] 2024-10-28 00:00:00 2024-10-28 00:00:00 Travel 1.2.840.1 [id number] 3.104.2.7 .3.899217 .8 1.2.840.114 350.1.13.10 4.2.7.3.698 [id number] [facility] 2024-10-09 17:54:39 2024-10-09 17:54:[address] [facility] [id number] Ervin Cavazos 2024-09-24 00:00:00 2024-09-25 08:42:40 Telephone Titi Salvador [facility] 1.2.840.114 350.1.13.10 4.2.7.2.686 [id number] [facility] 2024-09-24 10:20:00 2024-09-24 12:07:15 Outpatient R MODESTOTITITITI Burger [facility] [id number] [facility] 2024-09-24 10:20:00 2024-09-24 12:07:15 Office Visit Titi Salvador [facility] 1.2.840.114 350.1.13.10 4.2.7.2.686 [id number] [facility] 2024-09-16 00:00:00 2024-09-16 00:00:[address] [facility] [id number] Ervin Cavazos 2024-09-12 16:25:42 2024-09-12 16:25:[address] [facility] [id number] Ervin Cavazos 2024-09-12 00:00:00 2024-09-12 00:00:00 Outpatient Visit SFA [id number] Ervin Cavazos 2024-09-11 12:47:20 2024-09-11 12:47:20 Outpatient SFA SFA [id number] Ervin Cavazos 2024-08-19 13:54:04 2024-08-19 13:54:04 Outpatient SFA SFA [id number] Ervin Cavazos 2024-08-02 12:33:06 2024-08-02 23:59:00 Outpatient Antoine MCDUFFIEMAGALI [facility] [id number] [facility] 2024-08-02 12:33:06 2024-08-02 23:59:00 Hospital Encounter Froy Magali [facility] .2.840.114 350.1.13.10 4.2.7.2.686 [id number] [facility] 2024-08-01 00:00:00 2024-08-01 00:00:00 Outpatient Antoine MCDUFFIEMAGALI [facility] [id number] [facility] 2024-07-25 14:34:31 2024-07-25 14:34:[address] [facility] [id number] Ervin Cavazos 2024-07-25 09:30:00 2024-07-25 09:31:02 Outpatient R MAGALI MCDUFFIE [facility] [id number] [facility] 2024-07-25 09:30:00 2024-07-25 09:31:02 [facility] 1.2.840.114 350.1.13.10 4.2.7.2.686 [id number] [facility] 2024-07-25 00:00:00 2024-07-25 00:00:[address] [facility] [id number] Ervin Cavazos 2024-07-16 17:52:06 2024-07-16 17:52:06 Outpatient SFA SFA [id number] Ervin Cavazos 2024-07-16 00:00:00 2024-07-16 00:00:00 Outpatient Visit SFA [id number] Ervin Cavazos 2024-06-18 00:00:00 2024-06-18 15:25:41 Refill Froy [facility] 1.2.840.114 350.1.13.10 4.2.7.2.686 [id number] [facility] 2024-06-12 15:29:32 2024-06-12 15:29:32 Outpatient SFA SFA [id number] Ervin Cavazos 2024-06-03 09:07:11 2024-06-03 09:07:11 Outpatient SFA SFA [id number] Ervin Cavazos 2024-05-14 16:12:26 2024-05-14 16:12:26 Outpatient SFA SFA [id number] Ervin Cavazos 2024-05-07 09:44:47 2024-05-07 09:44:47 Outpatient SFA SFA [id number] Ervin Cavazos 2024-05-07 00:00:00 2024-05-07 00:00:00 Outpatient Visit SFA [id number] Ervin Cavazos 2024-04-22 09:00:00 2024-04-22 09:33:18 Outpatient R FROY [facility] [id number] [facility] 2024-04-22 09:00:00 2024-04-22 09:33:18 Office Visit Froy [facility] 1.2.840.114 350.1.13.10 4.2.7.2.686 [id number] [facility] 2024-04-18 14:18:11 2024-04-18 14:18:11 Outpatient SFA SFA [id number] Ervin Cavazos 2024-04-17 00:00:00 2024-04-18 09:44:25 [facility] 1.2.840.114 350.1.13.10 4.2.7.2.686 [id number] [facility] 2024-04-17 15:30:00 2024-04-17 15:45:00 Associate Broker Visit Lab, Jeff Barrios [facility] 1.2.840.114 350.1.13.10 4.2.7.2.686 [id number] [facility] 2024-04-17 15:30:00 2024-04-17 15:30:00 Outpatient BALTA CAMPUZANO [facility] [id number] [facility] 2024-04-17 15:00:00 2024-04-17 15:09:19 Nurse Visit Nurse, Constantino Ponce Denis [facility] 1.2.840.114 350.1.13.10 4.2.7.2.686 [id number] [facility] 2024-04-12 00:00:00 2024-04-15 09:27:34 [facility] 1.2.840.114 350.1.13.10 4.2.7.2.686 [id number] [facility] 2024-04-12 00:00:00 2024-04-12 00:00:00 [facility] [id number] 2024-04-11 13:28:48 2024-04-11 13:28:[address] [facility] [id number] Ervin Cavazos 2024-04-08 00:00:00 2024-04-08 10:14:01 Telephone Magali Mcduffie [facility] 1.2.840.114 350.1.13.10 4.2.7.2.686 [id number] [facility] 2024-04-05 00:00:00 2024-04-08 08:43:23 [facility] 1.2.840.114 350.1.13.10 4.2.7.2.686 [id number] [facility] 2024-04-02 00:00:00 2024-04-02 00:00:00 Outpatient R MAGALI MCDUFFIE [facility] [id number] [facility] 2024-03-19 16:16:51 2024-03-19 16:16:51 Outpatient [facility] [id number] Ervin Cavazos 2024-03-18 14:00:00 2024-03-18 14:35:52 Outpatient R MAGALI MCDUFFIE [facility] [id number] [facility] 2024-03-18 14:00:00 2024-03-18 14:35:52 [facility] 1.2.840.114 350.1.13.10 4.2.7.2.686 [id number] [facility] 2024-03-04 11:24:50 2024-03-04 11:24:50 Outpatient [facility] [id number] Ervin Cavazos 2024-03-04 00:00:00 2024-03-04 00:00:00 Outpatient Visit [facility] [id number] Ervin Cavazos 2024-02-26 10:36:19 2024-02-26 10:36:19 Outpatient [facility] [id number] Ervin Cavazos 2024-02-26 00:00:00 2024-02-26 00:00:00 Outpatient Visit S[facility] [id number] Ervin Cavazos 2024-02-19 15:39:00 2024-02-19 19:33:00 Emergency E CHETAN RAMSEY [facility] [id number] [facility] 2024-02-13 10:10:40 2024-02-13 10:10:40 Outpatient [facility] [id number] Ervin Cavazos 2024-02-09 13:57:31 2024-02-09 13:57:[address] [facility] [id number] Ervin Cavazos 2024-02-08 16:20:24 2024-02-08 16:20:24 Outpatient [facility] [id number] Ervin Cavazos 2024-01-30 15:29:22 2024-01-30 15:29:22 Outpatient [facility] [id number] Ervin Cavazos 2023-12-27 17:18:35 2023-12-27 17:18:[address] [facility] [id number] Ervin Cavazos 2023-11-22 10:50:04 2023-11-22 10:50:[address] [facility] [id number] Ervin Cavazos 2023-11-21 11:28:04 2023-11-21 23:59:00 Hospital Encounter Radiology [facility] 1.2.840.114 350.1.13.10 4.2.7.2.686 [id number] [facility] 2023-11-21 11:27:09 2023-11-21 11:27:09 Outpatient R [facility] [id number] [facility] 2023-11-21 11:27:09 2023-11-21 11:27:09 Hospital Encounter Radiology [facility] 1..840.114 350.1.13.10 4.2.7.2.686 [id number] [facility] 2023-11-21 00:00:00 2023-11-21 00:00:00 Orders Only Doctor Unassigned, [place] [facility] 1.2.840.114 350.1.13.10 4.2.7.2.686 [id number] [facility] 2023-11-13 08:29:07 2023-11-13 08:29:07 Outpatient [facility] [id number] Ervin Cavazos 2023-10-24 13:14:40 2023-10-24 13:14:40 Outpatient [facility] [id number] Ervin aCvazos 2023-10-11 10:22:13 2023-10-11 10:22:13 Outpatient S[facility] [id number] Ervin Cavazos 2023-09-14 16:43:23 2023-09-14 16:43:23 Outpatient [facility] [id number] Ervin Cavazos 2023-08-17 08:46:29 2023-08-17 08:46:29 Outpatient [facility] [id number] Ervin Cavazos 2023-07-19 11:28:10 2023-07-19 11:28:10 Outpatient [facility] [id number] Ervin Cavazos 2023-07-18 13:23:29 2023-07-18 13:23:29 Outpatient [facility] [id number] Ervin Cavazos 2023-06-29 14:19:35 2023-06-29 14:19:35 Outpatient [facility] 0824 Ervin Magallon Dirk 2023-05-25 17:08:57 2023-05-25 17:08:57 Outpatient SFA [facility]FA 0720 Ervin Magallon Dirk 2023-04-10 11:21:34 2023-04-10 11:21:34 Outpatient SFA SFA 0605 Ervin Cavazos 2023-03-15 10:31:03 2023-03-15 10:31:03 Outpatient SFA SFA 0510 Ervin Magallon Dirk 2021-01-23 09:00:00 2021-01-23 09:00:00 Outpatient [facility] [id number] [facility] 2021-01-23 09:00:00 2021-01-23 09:00:00 Outpatient [facility] [id number] [facility] 2021-01-02 09:25:00 2021-01-02 09:25:00 Outpatient [facility] [id number] [facility] 2020-01-14 13:30:00 2020-01-14 13:30:00 Outpatient MHIE MHIE [id number] 10 Norris Coates 2019-12-31 08:00:00 2019-12-31 08:00:00 Outpatient Jewel Blandonrosa i HCAPM RADI [id number] [facility] 2019-07-12 00:00:00 2019-07-12 [facility]:00[facility]00 [facility] [id number] 2019-07-12 00:00:00 2019-07-12 00:00:00 [facility] [id number] [facility] 2016-05-30 11:00:00 2016-05-30 11:00:00 Outpatient MHIE MHIE [id number] Norris Coates 2016-04-18 13:30:00 2016-04-18 13:30:00 Outpatient MHIE MHIE [id number] Norris Coates 2016-04-01 11:30:00 2016-04-01 11:30:00 Outpatient MHIE MHIE [id number] 07 Norris Coates 2015-12-14 16:25:00 2015-12-14 16:25:00 Outpatient MHIE MHIE [id number] 06 Norris Coates 2015-12-07 16:40:00 2015-12-07 16:40:00 Outpatient MHIE MHIE [id number] 05 Norris Coates 2015-10-13 15:25:00 2015-10-13 15:25:00 Outpatient [facility] [id number] Norris Coates 2015-09-12 09:00:00 2015-09-12 09:00:00 [facility]patient [facility] [id number] Norris Coates 2015-08-18 08:30:00 2015-08-18 08:30:00 Outpatient [facility] [id number] Norris Coates 2015-08-18 08:30:00 2015-08-18 08:30:00 Outpatient [facility] [id number] Norris Coates 2015-06-25 09:15:00 2015-06-25 09:15:00 Outpatient [facility] [id number] 01 Norris Coates 2014-10-20 06:20:43 2014-10-20 10:50:00 Outpatient nullFlavo r [facility] [id number] Norris Coates 2014-07-09 10:35:03 2014-07-09 16:10:00 Outpatient nullFlavo r [facility] [id number] Norris Coates Results Test Description Test Time Test Comments Results Result Co mments Source HEMOGLOBIN [id number] 04:51:57* Test Item Value Reference Range Interpretation Comme [facility] HEMOGLOBIN A1c (test code = 39696) 5.8 % 4.2-5.6 H [employer] GUIDELINES FOR HGB A1C: PREDIABETES/INCREASED RISK . . . . . . . 5.7-6.4% DIAGNOSIS OF DIABETES . . . . . . . . . >=6.5% WITH CONFIRMATION OR APPROPRIATE SYMPTOMS NOTE: ASSAY MAY BE AFFECTED BY HEMOGLOBINOPATHIES (SICKLE CELL ANEMIA, S-C DISEASE, OTHERS) OR ARTIFICIALLY LOWERED BY DECREASED RED CELL SURVIVAL (HEMOLYTIC ANEMIAS, BLOOD LOSS, ETC.). CONSIDER ALTERNATE TESTING OR LABORATORY CONSULTATION. HEMOGLOBIN [id number] 00:00:00* Test Item Value Reference Range Interpretation Comme nts HEMOGLOBIN A1c (test code = 43876) 5.8 % Ervin CavazosVITAMIN D, 25 [id number] 00:00:00* Test Item Value Reference Range Interpretation Comme nts VITAMIN D, 25 OH (test code = 4958) 57 NG/ML Ervin Cha REFLEX TO FREE [id number] 04:01:12* Test Item Value Reference Range Interpretation Comme nts TSH REFLEX TO FREE T4 (test code = 2834) 1.750 UIU/ML 0.400-4.100 LIPID [id number] 03:57:22* Test Item Value Reference Range Interpretation Comme nts CHOLESTEROL (test code = 2210) 182 MG/DL <200 TRIGLYCERIDES (test code = 2232) 43 MG/DL <150 HDL CHOLESTEROL (test code = 2220) 72 MG/DL >39 CALC LDL CHOL (test code = 2237) 97 MG/DL <100 NOTE: CALCULATED LDL IS BASED ON LALY-FLETCHER METHOD WHICHINCLUDES ADJUSTABLE TRIGLYCERIDE:VLDL CHOLESTEROL RATIO.THIS FACTOR VARIES BY MEASURED TRIGLYCERIDE AND NON-HDLCHOLESTEROL CONCENTRATIONS WITH INCREASED CALCULATED LDL SEENIN HIGHER TRIGLYCERIDE OR LOWER NON-HDL SPECIMENS. FOR MOREINFORMATION, SEE CLIENT ANNOUNCEMENT AT [email or web address] /CalcLDL-C RISK RATIO LDL/HDL (test code = 223) 1.35 RATIO <3.22 COMPREHENSIVE METABOLIC [id number] 03:57:22* Test Item Value Reference Range Interpretation Comme nts GLUCOSE (test code = 2217) 87 MG/DL 70-99 BUN (test code = 220) 14 MG/DL 8-23 CREATININE (test code = 2214) 0.74 MG/DL 0.60-1.30 eGFR (2020 CKD-EPI) (test code = 02973) 86 ML/MIN/1.73 >60 CALC BUN/CREAT (test code = 2235) 19 RATIO 6-28 SODIUM (test code = 223) 136 MEQ/L 133-146 POTASSIUM (test code = 2228) 4.7 MEQ/L 3.5-5.4 CHLORIDE (test code = 2215) 98 MEQ/L 95-107 CARBON DIOXIDE (test code = 220) 26 MEQ/L 19-31 CALCIUM (test code = 220) 9.5 MG/DL 8.5-10.5 PROTEIN, TOTAL (test code = 2228) 7.2 G/DL 6.1-8.3 ALBUMIN (test code = 2200) 4.5 G/DL 3.5-5.2 CALC GLOBULIN (test code = 224) 2.7 G/DL 1.9-3.7 CALC A/G RATIO (test code = 2234) 1.7 RATIO 1.0-2.6 BILIRUBIN, TOTAL (test code = 2207) 0.4 MG/DL <=1.2 ALKALINE PHOSPHATASE (test code = 2204) 79 U/L 40-142 AST (test code = 2218) 24 U/L 9-40 ALT (test code = 2219) 16 U/L 5-40 UNLESS OTHERWISE INDICATED, ALL TESTING PERFORMED AT [facility] [address] [place] [id number] ROOFING TILE SORTER: JUNITO CALABRESE M.D. IA NUMBER [id number] [facility] [place]. [id number] HEMOGLOBIN [id number] 02:34:50* Test Item Value Reference Range Interpretation Comme nts HEMOGLOBIN A1c (test code = 03460) 5.8 % 4.2-5.6 H [employer] GUIDELINES FOR HGB A1C: PREDIABETES/INCREASED RISK . . . . . . . 5.7-6.4% DIAGNOSIS OF DIABETES . . . . . . . . . >=6.5% WITH CONFIRMATION OR APPROPRIATE SYMPTOMS NOTE: ASSAY MAY BE AFFECTED BY HEMOGLOBINOPATHIES (SICKLE CELL ANEMIA, S-C DISEASE, OTHERS) OR ARTIFICIALLY LOWERED BY DECREASED RED CELL SURVIVAL (HEMOLYTIC ANEMIAS, BLOOD LOSS, ETC.). CONSIDER ALTERNATE TESTING OR LABORATORY CONSULTATION. CBC W/AUTO DIFF WITH [id number] 01:47:33* Test Item Value Reference Range Interpretation Comme nts WBC (test code = 1001) 4.3 K/UL 3.5-11.0 RBC (test code = 1002) 4.19 M/UL 3.80-5.40 HEMOGLOBIN (test code = 1003) 13.0 G/DL 11.5-15.5 HEMATOCRIT (test code = 1004) 40.2 % 34.0-45.0 MCV (test code = 1005) 95.9 fL 80.0-99.0 MCH (test code = 1006) 31.0 PG 25.0-33.0 MCHC (test code = 1007) 32.3 G/DL 31.0-36.0 RDW (test code = 1038) 13.1 % 11.5-15.0 NEUTROPHILS (test code = 1008) 53.1 % LYMPHOCYTES (test code = 1010) 35.2 % MONOCYTES (test code = 1011) 8.3 % EOSINOPHILS (test code = 1012) 2.3 % BASOPHILS (test code = 1013) 0.9 %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 >16CEFAZOLIN RESISTANT >16CEFTRIAXONE SENSITIVE <=1CIPROFLOXACIN SENSITIVE <=1LEVOFLOXACIN SENSITIVE <=2NITROFURANTOIN SENSITIVE <=32PIP/TAZOBAC SENSITIVE <=16TETRACYCLINE RESISTANT >8TOBRAMYCIN SENSITIVE <=4TRIMETH/SULFA RESISTANT >2/38 NOTE: NUMBERS DISPLAYED REPRESENT MINIMUM INHIBITORY CONCENTRATION (ALBERTO) WHICH IS EXPRESSED IN MCG/ML. UNLESS OTHERWISE INDICATED, ALL TESTING PERFORMED AT [facility] [address] [place] [address] ROOFING TILE SORTER: JUNITO CALABRESE M.D. CLIA NUMBER [id number] [facility] [place] [id number], [id number] 00:00:00* Test Item Value Reference Range Interpretation Comme nts CULTURE, URINE (test code = 76081) SPECIMEN NUMBER: [id number] Ervin Saravia, [id number] 00:00:00* Test Item Value Reference Range Interpretation Comme nts CULTURE, URINE (test code = 89845) SPECIMEN NUMBER: [id number] Ervin Saravia [id number] 00:00:00* Test Item Value Reference Range Interpretation Comme nts CULTURE, URINE (test code = 70640) SPECIMEN NUMBER: [id number] Ervin Saravia [id number] 00:00:00* Test Item Value Reference Range Interpretation Comme nts CULTURE, URINE (test code = 16372) SPECIMEN NUMBER: [id number] Ervin Saravia [id number] 00:00:00* Test Item Value Reference Range Interpretation Comme nts CULTURE, URINE (test code = 30895) SPECIMEN NUMBER: [id number] Ervin Saravia [id number] 00:00:00* Test Item Value Reference Range Interpretation Comme nts CULTURE, URINE (test code = 78332) SPECIMEN NUMBER: [id number] Ervin Saravia [id number] 00:00:00* Test Item Value Reference Range Interpretation Comme nts CULTURE, URINE (test code = 55434) SPECIMEN NUMBER: [id number] Ervin Saravia [id number] 00:00:00* Test Item Value Reference Range Interpretation Comme nts CULTURE, URINE (test code = 13592) SPECIMEN NUMBER: [id number] Ervin Saravia [id number] 00:00:00* Test Item Value Reference Range Interpretation Comme nts CULTURE, URINE (test code = 08331) SPECIMEN NUMBER: [id number] Ervin Cha, THIRD [id number] 05:18:56* Test Item Value Reference Range Interpretation Comme nts TSH, THIRD GENERATION (test code = 2821) 3.660 UIU/ML 0.400-4.100 UNLESS OTHERWISE INDICATED, ALL TESTING PERFORMED AT [facility] [address] [place] [address] ROOFING TILE SORTER: JUNITO CALABRESE M.D. CLIA NUMBER [id number] [place]. [id number] TSH, THIRD [id number] 00:00:00* Test Item Value Reference Range Interpretation Comme nts TSH, THIRD GENERATION (test code = 2821) 3.660 UIU/ML Ervin Cha, THIRD [id number] 00:00:00* Test Item Value Reference Range Interpretation Comme nts TSH, THIRD GENERATION (test code = 2821) 3.660 UIU/ML Ervin Cha, THIRD [id number] 00:00:00* Test Item Value Reference Range Interpretation Comme nts TSH, THIRD GENERATION (test code = 2821) 3.660 UIU/ML Ervin Cha, THIRD [id number] 00:00:00* Test Item Value Reference Range Interpretation Comme nts TSH, THIRD GENERATION (test code = 2821) 3.660 UIU/ML Ervin Cha, THIRD [id number] 00:00:00* Test Item Value Reference Range Interpretation Comme nts TSH, THIRD GENERATION (test code = 2821) 3.660 UIU/ML Ervin Cha, THIRD [id number] 00:00:00* Test Item Value Reference Range Interpretation Comme nts TSH, THIRD GENERATION (test code = 2821) 3.660 UIU/ML Ervin Cha, THIRD [id number] 00:00:00* Test Item Value Reference Range Interpretation Comme nts TSH, THIRD GENERATION (test code = 2821) 3.660 UIU/ML Ervin Cha, THIRD [id number] 00:00:00* Test Item Value Reference Range Interpretation Comme nts TSH, THIRD GENERATION (test code = 2821) 3.660 UIU/ML Ervin Cha, THIRD [id number] 00:00:00* Test Item Value Reference Range Interpretation Comme nts TSH, THIRD GENERATION (test code = 2821) 3.660 UIU/ML Ervin Arora DIAGNOSTIC TOMOSYNTHESIS [id number] 19:29:40 Examination:BI DIAGNOSTIC TOMOSYNTHESIS LEFT History:Patient is 68 year old and is seen for: ?[facility] dated 08/09/2023 left breast asymmetry on CC view. Computer- aided detection (CAD) utilized. Comparisons: 08/04/2004 MAMMARY SCREENING EXAM Findings:The left breast is heterogeneously dense, which may obscure small masses. There is no evidence of suspicious masses, calcifications, or other abnormal findings in the left breast. Impression:No mammographic evidence of malignancy. Recommendation:The Radiology Department will request and compare to prior films if available, however if not obtainable then left screening mammogram in August 2024 is recommended. - LeftThese findings and recommendations were discussed in detail with the patient at the time of this exam. BI-RADS Category: Left: 0 - Incomplete: Need Prior Mammograms for ComparisonOverall: 0 - Incomplete: Need Prior Mammograms for Comparison [facility] [id number] 06:04:20* Test Item Value Reference Range Interpretation Comme nts HEMOGLOBIN A1c (test code = 47767) 5.5 % 4.2-5.6 TSH, THIRD [id number] 05:45:26* Test Item Value Reference Range Interpretation Comme nts TSH, THIRD GENERATION (test code = 2821) 5.840 UIU/ML 0.400-4.100 H UNLESS OTHERWISE INDICATED, ALL TESTING PERFORMED AT [facility] [address] [place] [address] ROOFING TILE SORTER: JUNITO CALABRESE M.D. CLIA NUMBER [id number] [facility] [place]. [id number] LIPID [id number] 05:13:26* Test Item Value Reference Range Interpretation Comme nts CHOLESTEROL (test code = 2210) 137 MG/DL <200 TRIGLYCERIDES (test code = 2232) 62 MG/DL <150 HDL CHOLESTEROL (test code = 2220) 55 MG/DL >39 CALC LDL CHOL (test code = 2237) 68 MG/DL <100 NOTE: CALCULATED LDL IS BASED ON LALY-FLETCHER METHOD WHICHINCLUDES ADJUSTABLE TRIGLYCERIDE:VLDL CHOLESTEROL RATIO.THIS FACTOR VARIES BY MEASURED TRIGLYCERIDE AND NON-HDLCHOLESTEROL CONCENTRATIONS WITH INCREASED CALCULATED LDL SEENIN HIGHER TRIGLYCERIDE OR LOWER NON-HDL SPECIMENS. FOR MOREINFORMATION, SEE CLIENT ANNOUNCEMENT AT [email or web address] RISK RATIO LDL/HDL (test code = 2238) 1.24 RATIO <3.22 COMPREHENSIVE METABOLIC [id number] 05:13:26* Test Item Value Reference Range Interpretation Comme nts GLUCOSE (test code = 2217) 92 MG/DL 70-99 BUN (test code = 2207) 11 MG/DL 8-23 CREATININE (test code = 2213) 0.64 MG/DL 0.60-1.30 eGFR (2020 CKD-EPI) (test co de = 25087) 95 ML/MIN/1.73 >60 CALC BUN/CREAT (test code = 2234) 17 RATIO 6-28 SODIUM (test code = 223) 140 MEQ/L 133-146 POTASSIUM (test code = 2227) 4.5 MEQ/L 3.5-5.4 CHLORIDE (test code = 221) 104 MEQ/L 95-107 CARBON DIOXIDE (test code = 220) 27 MEQ/L 19-31 CALCIUM (test code = 2208) 9.8 MG/DL 8.5-10.5 PROTEIN, TOTAL (test code = 2228) 7.3 G/DL 6.1-8.3 ALBUMIN (test code = 2200) 4.6 G/DL 3.5-5.2 CALC GLOBULIN (test code = 0) 2.7 G/DL 1.9-3.7 CALC A/G RATIO (test code = 223) 1.7 RATIO 1.0-2.6 BILIRUBIN, TOTAL (test code = 2206) 0.2 MG/DL <=1.2 ALKALINE PHOSPHATASE (test code = 2203) 78 U/L 40-142 AST (test code = 221) 29 U/L 9-40 ALT (test code = 2219) 23 U/L 5-40 CBC W/AUTO DIFF WITH [id number] 05:11:51* Test Item Value Reference Range Interpretation Comme nts WBC (test code = 1001) 4.0 K/UL 3.5-11.0 RBC (test code = 1002) 4.54 M/UL 3.80-5.40 HEMOGLOBIN (test code = 1003) 14.1 G/DL 11.5-15.5 HEMATOCRIT (test code = 1004) 42.1 % 34.0-45.0 MCV (test code = 1005) 92.7 fL 80.0-99.0 MCH (test code = 1006) 31.1 PG 25.0-33.0 MCHC (test code = 1007) 33.5 G/DL 31.0-36.0 RDW (test code = 1038) 13.1 % 11.5-15.0 NEUTROPHILS (test code = 1008) 54.4 % LYMPHOCYTES (test code = 1010) 35.3 % MONOCYTES (test code = 1011) 8.0 % EOSINOPHILS (test code = 1012) 1.5 % BASOPHILS (test code = 1013) 0.5 % IMMATURE GRANULOCYTES (test code = 1036) 0.3 % NUCLEATED RBCS (test code = 1065) 0.0 /100 WBC'S See_Comment [Automated stickappsa ge] The system which generated this result transmitted reference range: 0.0. The reference range was not used to interpret this result as normal/abnormal. PLATELET COUNT (test code = 1015) 271 K/UL 130-400 ABSOLUTE NEUTROPHILS (test code = 1066) 2.17 K/UL 1.50-7.50 ABSOLUTE LYMPHOCYTES (test code = 1067) 1.41 K/UL 1.00-4.00 ABSOLUTE MONOCYTES (test code = 1068) 0.32 K/UL 0.20-1.00 ABSOLUTE EOSINOPHILS (test code = 1040) 0.06 K/UL 0.00-0.50 ABSOLUTE BASOPHILS (test code = 1069) 0.02 K/UL 0.00-0.20 ABS IMMATURE GRANULOCYTES (test code = 1020) 0.01 K/UL 0.00-0.10 ABS NUCLEATED RBCS (test code = 19385) 0.00 K/UL 0.00-0.11 LIPID [id number] 00:00:00* Test Item Value Reference Range Interpretation Comme nts CHOLESTEROL (test code = 2210) 137 MG/DL TRIGLYCERIDES (test code = 2232) 62 MG/DL HDL CHOLESTEROL (test code = 2220) 55 MG/DL CALC LDL CHOL (test code = 2237) 68 MG/DL RISK RATIO LDL/HDL (test cod e = 2238) 1.24 RATIO Ervin F AustinCOMPREHENSIVE METABOLIC [id number] 00:00:00* Test Item Value Reference Range Interpretation Comme nts GLUCOSE (test code = 2217) 92 MG/DL BUN (test code = 2208) 11 MG/DL CREATININE (test code = 2214) 0.64 MG/DL eGFR (2020 CKD-EPI) (test co de = 73119) 95 ML/MIN/1.73 CALC BUN/CREAT (test code = 2235) 17 RATIO SODIUM (test code = 2231) 140 MEQ/L POTASSIUM (test code = 2228) 4.5 MEQ/L CHLORIDE (test code = 2215) 104 MEQ/L CARBON DIOXIDE (test code = 2206) 27 MEQ/L CALCIUM (test code = 2209) 9.8 MG/DL PROTEIN, TOTAL (test code = 2229) 7.3 G/DL ALBUMIN (test code = 2201) 4.6 G/DL CALC GLOBULIN (test code = 2240) 2.7 G/DL CALC A/G RATIO (test code = 2234) 1.7 RATIO BILIRUBIN, TOTAL (test code = 2207) 0.2 MG/DL ALKALINE PHOSPHATASE (test code = 220) 78 U/L AST (test code = 2218) 29 U/L ALT (test code = 2219) 23 U/L Ervin Naun Elvira, THIRD [id number] 00:00:00* Test Item Value Reference Range Interpretation Comme nts TSH, THIRD GENERATION (test code = 2821) 5.840 UIU/ML Ervin Magallon DirkCBC W/AUTO [id number] 00:00:00* Test Item Value Reference Range Interpretation Comme nts WBC (test code = 1001) 4.0 K/UL RBC (test code = 1002) 4.54 M/UL HEMOGLOBIN (test code = 1003) 14.1 G/DL HEMATOCRIT (test code = 1004) 42.1 % MCV (test code = 1005) 92.7 fL MCH (test code = 1006) 31.1 PG MCHC (test code = 1007) 33.5 G/DL RDW (test code = 1038) 13.1 % NEUTROPHILS (test code = 1008) 54.4 % LYMPHOCYTES (test code = 1010) 35.3 % MONOCYTES (test code = 1011) 8.0 % EOSINOPHILS (test code = 1012) 1.5 % BASOPHILS (test code = 1013) 0.5 % IMMATURE GRANULOCYTES (test code = 1036) 0.3 % NUCLEATED RBCS (test code = 1065) 0.0 /100WBC'S PLATELET COUNT (test code = 1015) 271 K/UL ABSOLUTE NEUTROPHILS (test c ode = 1066) 2.17 K/UL ABSOLUTE LYMPHOCYTES (test c ode = 1067) 1.41 K/UL ABSOLUTE MONOCYTES (test cod e = 1068) 0.32 K/UL ABSOLUTE EOSINOPHILS (test c ode = 1040) 0.06 K/UL ABSOLUTE BASOPHILS (test cod e = 1069) 0.02 K/UL ABS IMMATURE GRANULOCYTES (t est code = 1020) 0.01 K/UL ABS NUCLEATED RBCS (test cod e = 17198) 0.00 K/UL Ervin CavazosHEMOGLOBIN [id number] 00:00:00* Test Item Value Reference Range Interpretation Comme nts HEMOGLOBIN A1c (test code = 66593) 5.5 % Ervin CavazosLIPID [id number] 00:00:00* Test Item Value Reference Range Interpretation Comme nts CHOLESTEROL (test code = 2210) 137 MG/DL TRIGLYCERIDES (test code = 2232) 62 MG/DL HDL CHOLESTEROL (test code = 2220) 55 MG/DL CALC LDL CHOL (test code = 2237) 68 MG/DL RISK RATIO LDL/HDL (test cod e = 2238) 1.24 RATIO Ervin CavazosCOMPREHENSIVE METABOLIC [id number] 00:00:00* Test Item Value Reference Range Interpretation Comme nts GLUCOSE (test code = 2217) 92 MG/DL BUN (test code = 2208) 11 MG/DL CREATININE (test code = 2214) 0.64 MG/DL eGFR (2020 CKD-EPI) (test co de = 41325) 95 ML/MIN/1.73 CALC BUN/CREAT (test code = 2235) 17 RATIO SODIUM (test code = 2231) 140 MEQ/L POTASSIUM (test code = 2228) 4.5 MEQ/L CHLORIDE (test code = 2215) 104 MEQ/L CARBON DIOXIDE (test code = 2206) 27 MEQ/L CALCIUM (test code = 2209) 9.8 MG/DL PROTEIN, TOTAL (test code = 2229) 7.3 G/DL ALBUMIN (test code = 2201) 4.6 G/DL CALC GLOBULIN (test code = 2240) 2.7 G/DL CALC A/G RATIO (test code = 2234) 1.7 RATIO BILIRUBIN, TOTAL (test code = 2207) 0.2 MG/DL ALKALINE PHOSPHATASE (test code = 2204) 78 U/L AST (test code = 2218) 29 U/L ALT (test code = 2219) 23 U/L Ervin FelixH, THIRD [id number] 00:00:00* Test Item Value Reference Range Interpretation Comme nts TSH, THIRD GENERATION (test code = 2821) 5.840 UIU/ML Ervin CavazosCBC W/AUTO [id number] 00:00:00* Test Item Value Reference Range Interpretation Comme nts WBC (test code = 1001) 4.0 K/UL RBC (test code = 1002) 4.54 M/UL HEMOGLOBIN (test code = 1003) 14.1 G/DL HEMATOCRIT (test code = 1004) 42.1 % MCV (test code = 1005) 92.7 fL MCH (test code = 1006) 31.1 PG MCHC (test code = 1007) 33.5 G/DL RDW (test code = 1038) 13.1 % NEUTROPHILS (test code = 1008) 54.4 % LYMPHOCYTES (test code = 1010) 35.3 % MONOCYTES (test code = 1011) 8.0 % EOSINOPHILS (test code = 1012) 1.5 % BASOPHILS (test code = 1013) 0.5 % IMMATURE GRANULOCYTES (test code = 1036) 0.3 % NUCLEATED RBCS (test code = 1065) 0.0 /100WBC'S PLATELET COUNT (test code = 1015) 271 K/UL ABSOLUTE NEUTROPHILS (test c ode = 1066) 2.17 K/UL ABSOLUTE LYMPHOCYTES (test c ode = 1067) 1.41 K/UL ABSOLUTE MONOCYTES (test cod e = 1068) 0.32 K/UL ABSOLUTE EOSINOPHILS (test c ode = 1040) 0.06 K/UL ABSOLUTE BASOPHILS (test cod e = 1069) 0.02 K/UL ABS IMMATURE GRANULOCYTES (t est code = 1020) 0.01 K/UL ABS NUCLEATED RBCS (test cod e = 84463) 0.00 K/UL Ervin CavazosHEMOGLOBIN [id number] 00:00:00* Test Item Value Reference Range Interpretation Comme nts HEMOGLOBIN A1c (test code = 59104) 5.5 % Ervin CavazosLIPID [id number] 00:00:00* Test Item Value Reference Range Interpretation Comme nts CHOLESTEROL (test code = 2210) 137 MG/DL TRIGLYCERIDES (test code = 2232) 62 MG/DL HDL CHOLESTEROL (test code = 2220) 55 MG/DL CALC LDL CHOL (test code = 2237) 68 MG/DL RISK RATIO LDL/HDL (test cod e = 2238) 1.24 RATIO Ervin CavazosCOMPREHENSIVE METABOLIC [id number] 00:00:00* Test Item Value Reference Range Interpretation Comme nts GLUCOSE (test code = 2217) 92 MG/DL BUN (test code = 2208) 11 MG/DL CREATININE (test code = 2214) 0.64 MG/DL eGFR (2020 CKD-EPI) (test co de = 66092) 95 ML/MIN/1.73 CALC BUN/CREAT (test code = 2235) 17 RATIO SODIUM (test code = 2231) 140 MEQ/L POTASSIUM (test code = 2228) 4.5 MEQ/L CHLORIDE (test code = 2215) 104 MEQ/L CARBON DIOXIDE (test code = 2206) 27 MEQ/L CALCIUM (test code = 2209) 9.8 MG/DL PROTEIN, TOTAL (test code = 2229) 7.3 G/DL ALBUMIN (test code = 2201) 4.6 G/DL CALC GLOBULIN (test code = 2240) 2.7 G/DL CALC A/G RATIO (test code = 2234) 1.7 RATIO BILIRUBIN, TOTAL (test code = 2207) 0.2 MG/DL ALKALINE PHOSPHATASE (test code = 2204) 78 U/L AST (test code = 2218) 29 U/L ALT (test code = 2219) 23 U/L Ervin CavazosH, THIRD [id number] 00:00:00* Test Item Value Reference Range Interpretation Comme nts TSH, THIRD GENERATION (test code = 2821) 5.840 UIU/ML Ervin CavazosCBC W/AUTO [id number] 00:00:00* Test Item Value Reference Range Interpretation Comme nts WBC (test code = 1001) 4.0 K/UL RBC (test code = 1002) 4.54 M/UL HEMOGLOBIN (test code = 1003) 14.1 G/DL HEMATOCRIT (test code = 1004) 42.1 % MCV (test code = 1005) 92.7 fL MCH (test code = 1006) 31.1 PG MCHC (test code = 1007) 33.5 G/DL RDW (test code = 1038) 13.1 % NEUTROPHILS (test code = 1008) 54.4 % LYMPHOCYTES (test code = 1010) 35.3 % MONOCYTES (test code = 1011) 8.0 % EOSINOPHILS (test code = 1012) 1.5 % BASOPHILS (test code = 1013) 0.5 % IMMATURE GRANULOCYTES (test code = 1036) 0.3 % NUCLEATED RBCS (test code = 1065) 0.0 /100WBC'S PLATELET COUNT (test code = 1015) 271 K/UL ABSOLUTE NEUTROPHILS (test c ode = 1066) 2.17 K/UL ABSOLUTE LYMPHOCYTES (test c ode = 1067) 1.41 K/UL ABSOLUTE MONOCYTES (test cod e = 1068) 0.32 K/UL ABSOLUTE EOSINOPHILS (test c ode = 1040) 0.06 K/UL ABSOLUTE BASOPHILS (test cod e = 1069) 0.02 K/UL ABS IMMATURE GRANULOCYTES (t est code = 1020) 0.01 K/UL ABS NUCLEATED RBCS (test cod e = 19863) 0.00 K/UL Ervin CavazosHEMOGLOBIN [id number] 00:00:00* Test Item Value Reference Range Interpretation Comme nts HEMOGLOBIN A1c (test code = 21889) 5.5 % Ervin CavazosLIPID [id number] 00:00:00* Test Item Value Reference Range Interpretation Comme nts CHOLESTEROL (test code = 2210) 137 MG/DL TRIGLYCERIDES (test code = 2232) 62 MG/DL HDL CHOLESTEROL (test code = 2220) 55 MG/DL CALC LDL CHOL (test code = 2237) 68 MG/DL RISK RATIO LDL/HDL (test cod e = 2238) 1.24 RATIO Ervin CavazosCOMPREHENSIVE METABOLIC [id number] 00:00:00* Test Item Value Reference Range Interpretation Comme nts GLUCOSE (test code = 2217) 92 MG/DL BUN (test code = 2208) 11 MG/DL CREATININE (test code = 2214) 0.64 MG/DL eGFR (2020 CKD-EPI) (test co de = 59043) 95 ML/MIN/1.73 CALC BUN/CREAT (test code = 2235) 17 RATIO SODIUM (test code = 2231) 140 MEQ/L POTASSIUM (test code = 2228) 4.5 MEQ/L CHLORIDE (test code = 2215) 104 MEQ/L CARBON DIOXIDE (test code = 2206) 27 MEQ/L CALCIUM (test code = 2209) 9.8 MG/DL PROTEIN, TOTAL (test code = 2229) 7.3 G/DL ALBUMIN (test code = 2201) 4.6 G/DL CALC GLOBULIN (test code = 2240) 2.7 G/DL CALC A/G RATIO (test code = 2234) 1.7 RATIO BILIRUBIN, TOTAL (test code = 2207) 0.2 MG/DL ALKALINE PHOSPHATASE (test code = 2204) 78 U/L AST (test code = 2218) 29 U/L ALT (test code = 2219) 23 U/L Ervin Magallon Semaj, THIRD [id number] 00:00:00* Test Item Value Reference Range Interpretation Comme nts TSH, THIRD GENERATION (test code = 2821) 5.840 UIU/ML Ervin CavazosCBC W/AUTO [id number] 00:00:00* Test Item Value Reference Range Interpretation Comme nts WBC (test code = 1001) 4.0 K/UL RBC (test code = 1002) 4.54 M/UL HEMOGLOBIN (test code = 1003) 14.1 G/DL HEMATOCRIT (test code = 1004) 42.1 % MCV (test code = 1005) 92.7 fL MCH (test code = 1006) 31.1 PG MCHC (test code = 1007) 33.5 G/DL RDW (test code = 1038) 13.1 % NEUTROPHILS (test code = 1008) 54.4 % LYMPHOCYTES (test code = 1010) 35.3 % MONOCYTES (test code = 1011) 8.0 % EOSINOPHILS (test code = 1012) 1.5 % BASOPHILS (test code = 1013) 0.5 % IMMATURE GRANULOCYTES (test code = 1036) 0.3 % NUCLEATED RBCS (test code = 1065) 0.0 /100WBC'S PLATELET COUNT (test code = 1015) 271 K/UL ABSOLUTE NEUTROPHILS (test c ode = 1066) 2.17 K/UL ABSOLUTE LYMPHOCYTES (test c ode = 1067) 1.41 K/UL ABSOLUTE MONOCYTES (test cod e = 1068) 0.32 K/UL ABSOLUTE EOSINOPHILS (test c ode = 1040) 0.06 K/UL ABSOLUTE BASOPHILS (test cod e = 1069) 0.02 K/UL ABS IMMATURE GRANULOCYTES (t est code = 1020) 0.01 K/UL ABS NUCLEATED RBCS (test cod e = 00624) 0.00 K/UL Ervin CavazosHEMOGLOBIN [id number] 00:00:00* Test Item Value Reference Range Interpretation Comme nts HEMOGLOBIN A1c (test code = 58006) 5.5 % Ervin CavazosLIPID [id number] 00:00:00* Test Item Value Reference Range Interpretation Comme nts CHOLESTEROL (test code = 2210) 137 MG/DL TRIGLYCERIDES (test code = 2232) 62 MG/DL HDL CHOLESTEROL (test code = 2220) 55 MG/DL CALC LDL CHOL (test code = 2237) 68 MG/DL RISK RATIO LDL/HDL (test cod e = 2238) 1.24 RATIO Ervin CavazosCOMPREHENSIVE METABOLIC [id number] 00:00:00* Test Item Value Reference Range Interpretation Comme nts GLUCOSE (test code = 2217) 92 MG/DL BUN (test code = 2208) 11 MG/DL CREATININE (test code = 2214) 0.64 MG/DL eGFR (2020 CKD-EPI) (test co de = 03831) 95 ML/MIN/1.73 CALC BUN/CREAT (test code = 2235) 17 RATIO SODIUM (test code = 2231) 140 MEQ/L POTASSIUM (test code = 2228) 4.5 MEQ/L CHLORIDE (test code = 2215) 104 MEQ/L CARBON DIOXIDE (test code = 2206) 27 MEQ/L CALCIUM (test code = 2209) 9.8 MG/DL PROTEIN, TOTAL (test code = 2229) 7.3 G/DL ALBUMIN (test code = 2201) 4.6 G/DL CALC GLOBULIN (test code = 2240) 2.7 G/DL CALC A/G RATIO (test code = 2234) 1.7 RATIO BILIRUBIN, TOTAL (test code = 2207) 0.2 MG/DL ALKALINE PHOSPHATASE (test code = 2204) 78 U/L AST (test code = 2218) 29 U/L ALT (test code = 2219) 23 U/L Ervin Cha, THIRD [id number] 00:00:00* Test Item Value Reference Range Interpretation Comme nts TSH, THIRD GENERATION (test code = 2821) 5.840 UIU/ML Ervin CavazosCBC W/AUTO [id number] 00:00:00* Test Item Value Reference Range Interpretation Comme nts WBC (test code = 1001) 4.0 K/UL RBC (test code = 1002) 4.54 M/UL HEMOGLOBIN (test code = 1003) 14.1 G/DL HEMATOCRIT (test code = 1004) 42.1 % MCV (test code = 1005) 92.7 fL MCH (test code = 1006) 31.1 PG MCHC (test code = 1007) 33.5 G/DL RDW (test code = 1038) 13.1 % NEUTROPHILS (test code = 1008) 54.4 % LYMPHOCYTES (test code = 1010) 35.3 % MONOCYTES (test code = 1011) 8.0 % EOSINOPHILS (test code = 1012) 1.5 % BASOPHILS (test code = 1013) 0.5 % IMMATURE GRANULOCYTES (test code = 1036) 0.3 % NUCLEATED RBCS (test code = 1065) 0.0 /100WBC'S PLATELET COUNT (test code = 1015) 271 K/UL ABSOLUTE NEUTROPHILS (test c ode = 1066) 2.17 K/UL ABSOLUTE LYMPHOCYTES (test c ode = 1067) 1.41 K/UL ABSOLUTE MONOCYTES (test cod e = 1068) 0.32 K/UL ABSOLUTE EOSINOPHILS (test c ode = 1040) 0.06 K/UL ABSOLUTE BASOPHILS (test cod e = 1069) 0.02 K/UL ABS IMMATURE GRANULOCYTES (t est code = 1020) 0.01 K/UL ABS NUCLEATED RBCS (test cod e = 14742) 0.00 K/UL Ervin CavazosHEMOGLOBIN [id number] 00:00:00* Test Item Value Reference Range Interpretation Comme nts HEMOGLOBIN A1c (test code = 74041) 5.5 % Ervin CavazosLIPID [id number] 00:00:00* Test Item Value Reference Range Interpretation Comme nts CHOLESTEROL (test code = 2210) 137 MG/DL TRIGLYCERIDES (test code = 2232) 62 MG/DL HDL CHOLESTEROL (test code = 2220) 55 MG/DL CALC LDL CHOL (test code = 2237) 68 MG/DL RISK RATIO LDL/HDL (test cod e = 2238) 1.24 RATIO Ervin CavazosCOMPREHENSIVE METABOLIC [id number] 00:00:00* Test Item Value Reference Range Interpretation Comme nts GLUCOSE (test code = 2217) 92 MG/DL BUN (test code = 2208) 11 MG/DL CREATININE (test code = 2214) 0.64 MG/DL eGFR (2020 CKD-EPI) (test co de = 13056) 95 ML/MIN/1.73 CALC BUN/CREAT (test code = 2235) 17 RATIO SODIUM (test code = 2231) 140 MEQ/L POTASSIUM (test code = 2228) 4.5 MEQ/L CHLORIDE (test code = 2215) 104 MEQ/L CARBON DIOXIDE (test code = 2206) 27 MEQ/L CALCIUM (test code = 2209) 9.8 MG/DL PROTEIN, TOTAL (test code = 2229) 7.3 G/DL ALBUMIN (test code = 2201) 4.6 G/DL CALC GLOBULIN (test code = 2240) 2.7 G/DL CALC A/G RATIO (test code = 2234) 1.7 RATIO BILIRUBIN, TOTAL (test code = 2207) 0.2 MG/DL ALKALINE PHOSPHATASE (test code = 2204) 78 U/L AST (test code = 2218) 29 U/L ALT (test code = 2219) 23 U/L Ervin CavazosTSH, THIRD [id number] 00:00:00* Test Item Value Reference Range Interpretation Comme nts TSH, THIRD GENERATION (test code = 2821) 5.840 UIU/ML Ervin CavazosCBC W/AUTO [id number] 00:00:00* Test Item Value Reference Range Interpretation Comme nts WBC (test code = 1001) 4.0 K/UL RBC (test code = 1002) 4.54 M/UL HEMOGLOBIN (test code = 1003) 14.1 G/DL HEMATOCRIT (test code = 1004) 42.1 % MCV (test code = 1005) 92.7 fL MCH (test code = 1006) 31.1 PG MCHC (test code = 1007) 33.5 G/DL RDW (test code = 1038) 13.1 % NEUTROPHILS (test code = 1008) 54.4 % LYMPHOCYTES (test code = 1010) 35.3 % MONOCYTES (test code = 1011) 8.0 % EOSINOPHILS (test code = 1012) 1.5 % BASOPHILS (test code = 1013) 0.5 % IMMATURE GRANULOCYTES (test code = 1036) 0.3 % NUCLEATED RBCS (test code = 1065) 0.0 /100WBC'S PLATELET COUNT (test code = 1015) 271 K/UL ABSOLUTE NEUTROPHILS (test c ode = 1066) 2.17 K/UL ABSOLUTE LYMPHOCYTES (test c ode = 1067) 1.41 K/UL ABSOLUTE MONOCYTES (test cod e = 1068) 0.32 K/UL ABSOLUTE EOSINOPHILS (test c ode = 1040) 0.06 K/UL ABSOLUTE BASOPHILS (test cod e = 1069) 0.02 K/UL ABS IMMATURE GRANULOCYTES (t est code = 1020) 0.01 K/UL ABS NUCLEATED RBCS (test cod e = 46589) 0.00 K/UL Ervin CavazosHEMOGLOBIN [id number] 00:00:00* Test Item Value Reference Range Interpretation Comme nts HEMOGLOBIN A1c (test code = 67682) 5.5 % Ervin CavazosLIPID [id number] 00:00:00* Test Item Value Reference Range Interpretation Comme nts CHOLESTEROL (test code = 2210) 137 MG/DL TRIGLYCERIDES (test code = 2232) 62 MG/DL HDL CHOLESTEROL (test code = 2220) 55 MG/DL CALC LDL CHOL (test code = 2237) 68 MG/DL RISK RATIO LDL/HDL (test cod e = 2238) 1.24 RATIO Ervin CavazosCOMPREHENSIVE METABOLIC [id number] 00:00:00* Test Item Value Reference Range Interpretation Comme nts GLUCOSE (test code = 2217) 92 MG/DL BUN (test code = 2208) 11 MG/DL CREATININE (test code = 2214) 0.64 MG/DL eGFR (2020 CKD-EPI) (test co de = 45064) 95 ML/MIN/1.73 CALC BUN/CREAT (test code = 2235) 17 RATIO SODIUM (test code = 2231) 140 MEQ/L POTASSIUM (test code = 2228) 4.5 MEQ/L CHLORIDE (test code = 2215) 104 MEQ/L CARBON DIOXIDE (test code = 2206) 27 MEQ/L CALCIUM (test code = 2209) 9.8 MG/DL PROTEIN, TOTAL (test code = 2229) 7.3 G/DL ALBUMIN (test code = 2201) 4.6 G/DL CALC GLOBULIN (test code = 2240) 2.7 G/DL CALC A/G RATIO (test code = 2234) 1.7 RATIO BILIRUBIN, TOTAL (test code = 2207) 0.2 MG/DL ALKALINE PHOSPHATASE (test code = 2204) 78 U/L AST (test code = 2218) 29 U/L ALT (test code = 2219) 23 U/L Ervin FelixH, THIRD [id number] 00:00:00* Test Item Value Reference Range Interpretation Comme nts TSH, THIRD GENERATION (test code = 2821) 5.840 UIU/ML Ervin CavazosCBC W/AUTO [id number] 00:00:00* Test Item Value Reference Range Interpretation Comme nts WBC (test code = 1001) 4.0 K/UL RBC (test code = 1002) 4.54 M/UL HEMOGLOBIN (test code = 1003) 14.1 G/DL HEMATOCRIT (test code = 1004) 42.1 % MCV (test code = 1005) 92.7 fL MCH (test code = 1006) 31.1 PG MCHC (test code = 1007) 33.5 G/DL RDW (test code = 1038) 13.1 % NEUTROPHILS (test code = 1008) 54.4 % LYMPHOCYTES (test code = 1010) 35.3 % MONOCYTES (test code = 1011) 8.0 % EOSINOPHILS (test code = 1012) 1.5 % BASOPHILS (test code = 1013) 0.5 % IMMATURE GRANULOCYTES (test code = 1036) 0.3 % NUCLEATED RBCS (test code = 1065) 0.0 /100WBC'S PLATELET COUNT (test code = 1015) 271 K/UL ABSOLUTE NEUTROPHILS (test c ode = 1066) 2.17 K/UL ABSOLUTE LYMPHOCYTES (test c ode = 1067) 1.41 K/UL ABSOLUTE MONOCYTES (test cod e = 1068) 0.32 K/UL ABSOLUTE EOSINOPHILS (test c ode = 1040) 0.06 K/UL ABSOLUTE BASOPHILS (test cod e = 1069) 0.02 K/UL ABS IMMATURE GRANULOCYTES (t est code = 1020) 0.01 K/UL ABS NUCLEATED RBCS (test cod e = 55717) 0.00 K/UL Ervin CavazosHEMOGLOBIN [id number] 00:00:00* Test Item Value Reference Range Interpretation Comme nts HEMOGLOBIN A1c (test code = 33690) 5.5 % Ervin CavazosLIPID [id number] 00:00:00* Test Item Value Reference Range Interpretation Comme nts CHOLESTEROL (test code = 2210) 137 MG/DL TRIGLYCERIDES (test code = 2232) 62 MG/DL HDL CHOLESTEROL (test code = 2220) 55 MG/DL CALC LDL CHOL (test code = 2237) 68 MG/DL RISK RATIO LDL/HDL (test cod e = 2238) 1.24 RATIO Ervin CavazosCOMPREHENSIVE METABOLIC [id number] 00:00:00* Test Item Value Reference Range Interpretation Comme nts GLUCOSE (test code = 2217) 92 MG/DL BUN (test code = 2208) 11 MG/DL CREATININE (test code = 2214) 0.64 MG/DL eGFR (2020 CKD-EPI) (test co de = 03748) 95 ML/MIN/1.73 CALC BUN/CREAT (test code = 2235) 17 RATIO SODIUM (test code = 2231) 140 MEQ/L POTASSIUM (test code = 2228) 4.5 MEQ/L CHLORIDE (test code = 2215) 104 MEQ/L CARBON DIOXIDE (test code = 2206) 27 MEQ/L CALCIUM (test code = 2209) 9.8 MG/DL PROTEIN, TOTAL (test code = 2229) 7.3 G/DL ALBUMIN (test code = 2201) 4.6 G/DL CALC GLOBULIN (test code = 2240) 2.7 G/DL CALC A/G RATIO (test code = 2234) 1.7 RATIO BILIRUBIN, TOTAL (test code = 2207) 0.2 MG/DL ALKALINE PHOSPHATASE (test code = 2204) 78 U/L AST (test code = 2218) 29 U/L ALT (test code = 2219) 23 U/L Ervin CavazosANTON, THIRD [id number] 00:00:00* Test Item Value Reference Range Interpretation Comme nts TSH, THIRD GENERATION (test code = 2821) 5.840 UIU/ML Ervin CavazosCBC W/AUTO [id number] 00:00:00* Test Item Value Reference Range Interpretation Comme nts WBC (test code = 1001) 4.0 K/UL RBC (test code = 1002) 4.54 M/UL HEMOGLOBIN (test code = 1003) 14.1 G/DL HEMATOCRIT (test code = 1004) 42.1 % MCV (test code = 1005) 92.7 fL MCH (test code = 1006) 31.1 PG MCHC (test code = 1007) 33.5 G/DL RDW (test code = 1038) 13.1 % NEUTROPHILS (test code = 1008) 54.4 % LYMPHOCYTES (test code = 1010) 35.3 % MONOCYTES (test code = 1011) 8.0 % EOSINOPHILS (test code = 1012) 1.5 % BASOPHILS (test code = 1013) 0.5 % IMMATURE GRANULOCYTES (test code = 1036) 0.3 % NUCLEATED RBCS (test code = 1065) 0.0 /100WBC'S PLATELET COUNT (test code = 1015) 271 K/UL ABSOLUTE NEUTROPHILS (test c ode = 1066) 2.17 K/UL ABSOLUTE LYMPHOCYTES (test c ode = 1067) 1.41 K/UL ABSOLUTE MONOCYTES (test cod e = 1068) 0.32 K/UL ABSOLUTE EOSINOPHILS (test c ode = 1040) 0.06 K/UL ABSOLUTE BASOPHILS (test cod e = 1069) 0.02 K/UL ABS IMMATURE GRANULOCYTES (t est code = 1020) 0.01 K/UL ABS NUCLEATED RBCS (test cod e = 99157) 0.00 K/UL Ervin CavazosHEMOGLOBIN [id number] 00:00:00* Test Item Value Reference Range Interpretation Comme nts HEMOGLOBIN A1c (test code = 07330) 5.5 % Ervin CavazosLIPID [id number] 00:00:00* Test Item Value Reference Range Interpretation Comme nts CHOLESTEROL (test code = 2210) 137 MG/DL TRIGLYCERIDES (test code = 2232) 62 MG/DL HDL CHOLESTEROL (test code = 2220) 55 MG/DL CALC LDL CHOL (test code = 2237) 68 MG/DL RISK RATIO LDL/HDL (test cod e = 2238) 1.24 RATIO Ervin CavazosCOMPREHENSIVE METABOLIC [id number] 00:00:00* Test Item Value Reference Range Interpretation Comme nts GLUCOSE (test code = 2217) 92 MG/DL BUN (test code = 2208) 11 MG/DL CREATININE (test code = 2214) 0.64 MG/DL eGFR (2020 CKD-EPI) (test co de = 82863) 95 ML/MIN/1.73 CALC BUN/CREAT (test code = 2235) 17 RATIO SODIUM (test code = 2231) 140 MEQ/L POTASSIUM (test code = 2228) 4.5 MEQ/L CHLORIDE (test code = 2215) 104 MEQ/L CARBON DIOXIDE (test code = 2206) 27 MEQ/L CALCIUM (test code = 2209) 9.8 MG/DL PROTEIN, TOTAL (test code = 2229) 7.3 G/DL ALBUMIN (test code = 2201) 4.6 G/DL CALC GLOBULIN (test code = 2240) 2.7 G/DL CALC A/G RATIO (test code = 2234) 1.7 RATIO BILIRUBIN, TOTAL (test code = 2207) 0.2 MG/DL ALKALINE PHOSPHATASE (test code = 2204) 78 U/L AST (test code = 2218) 29 U/L ALT (test code = 2219) 23 U/L [facility], [facility]IRD [id number] 00:00:00* Test Item Value Reference Range Interpretation Comme nts TSH, THIRD GENERATION (test code = 2821) 5.840 UIU/ML Ervin CavazosCBC W/AUTO [id number] 00:00:00* Test Item Value Reference Range Interpretation Comme nts WBC (test code = 1001) 4.0 K/UL RBC (test code = 1002) 4.54 M/UL HEMOGLOBIN (test code = 1003) 14.1 G/DL HEMATOCRIT (test code = 1004) 42.1 % MCV (test code = 1005) 92.7 fL MCH (test code = 1006) 31.1 PG MCHC (test code = 1007) 33.5 G/DL RDW (test code = 1038) 13.1 % NEUTROPHILS (test code = 1008) 54.4 % LYMPHOCYTES (test code = 1010) 35.3 % MONOCYTES (test code = 1011) 8.0 % EOSINOPHILS (test code = 1012) 1.5 % BASOPHILS (test code = 1013) 0.5 % IMMATURE GRANULOCYTES (test code = 1036) 0.3 % NUCLEATED RBCS (test code = 1065) 0.0 /100WBC'S PLATELET COUNT (test code = 1015) 271 K/UL ABSOLUTE NEUTROPHILS (test c ode = 1066) 2.17 K/UL ABSOLUTE LYMPHOCYTES (test c ode = 1067) 1.41 K/UL ABSOLUTE MONOCYTES (test cod e = 1068) 0.32 K/UL ABSOLUTE EOSINOPHILS (test c ode = 1040) 0.06 K/UL ABSOLUTE BASOPHILS (test cod e = 1069) 0.02 K/UL ABS IMMATURE GRANULOCYTES (t est code = 1020) 0.01 K/UL ABS NUCLEATED RBCS (test cod e = 45976) 0.00 K/UL Ervin CavazosHEMOGLOBIN [id number] 00:00:00* Test Item Value Reference Range Interpretation Comme nts HEMOGLOBIN A1c (test code = 32166) 5.5 % Ervin Saravia, [id number] 09:35:41SPECIMEN NUMBER: [id number] CULTURE, URINE SPECIMEN NUMBER: [id number] SPECIMEN COMMENT: URINE SOURCE: URINE REPORT STATUS: FINAL FINAL REPORT: 07/20/2023 <10,000 CFU/ML UROGENITAL MARIELY PRESENT NO COMMON PATHOGENS UNLESS OTHERWISE INDICATED, ALL TESTING PERFORMED AT [facility] [address] [place] [address] ROOFING TILE SORTER: JUNITO CALABRESE M.D. CLIA NUMBER [id number] [place]. [id number], URINE [ADDED]2023-07-20 00:00:00* Test Item Value Reference Range Interpretation Comme nts CULTURE, URINE (test code = 82024) SPECIMEN NUMBER: [id number] Ervin PulidoLTRAFAEL, URINE [ADDED]2023-07-20 00:00:00* Test Item Value Reference Range Interpretation Comme nts CULTURE, URINE (test code = 24220) SPECIMEN NUMBER: [id number] Ervin CavazosCULTURE, URINE [ADDED]2023-07-20 00:00:00* Test Item Value Reference Range Interpretation Comme nts CULTURE, URINE (test code = 04952) SPECIMEN NUMBER: [id number] Ervin PulidoLTURE, URINE [ADDED]2023-07-20 00:00:00* Test Item Value Reference Range Interpretation Comme nts CULTURE, URINE (test code = 29902) SPECIMEN NUMBER: [id number] Ervin PulidoLTURE, URINE [ADDED]2023-07-20 00:00:00* Test Item Value Reference Range Interpretation Comme nts CULTURE, URINE (test code = 61239) SPECIMEN NUMBER: [id number] Ervin CavazosCULTURE, URINE [ADDED]2023-07-20 00:00:00* Test Item Value Reference Range Interpretation Comme nts CULTURE, URINE (test code = 34087) SPECIMEN NUMBER: [id number] Ervin PulidoLTURE, URINE [ADDED]2023-07-20 00:00:00* Test Item Value Reference Range Interpretation Comme nts CULTURE, URINE (test code = 36277) SPECIMEN NUMBER: [id number] Ervin PulidoLTURE, URINE [ADDED]2023-07-20 00:00:00* Test Item Value Reference Range Interpretation Comme nts CULTURE, URINE (test code = 95855) SPECIMEN NUMBER: [id number] Ervin PulidoLTURE, URINE [ADDED]2023-07-20 00:00:00* Test Item Value Reference Range Interpretation Comme nts CULTURE, URINE (test code = 91560) SPECIMEN NUMBER: [id number] Ervin CavazosCOMPREHENSIVE METABOLIC [id number] 00:00:00* Test Item Value Reference Range Interpretation Comme nts GLUCOSE (test code = 2217) 87 MG/DL BUN (test code = 2208) 8 MG/DL CREATININE (test code = 2214) 0.70 MG/DL eGFR (2020 CKD-EPI) (test co de = 65148) 94 ML/MIN/1.73 CALC BUN/CREAT (test code = 2235) 11 RATIO SODIUM (test code = 2231) 138 MEQ/L POTASSIUM (test code = 2228) 4.4 MEQ/L CHLORIDE (test code = 2215) 98 MEQ/L CARBON DIOXIDE (test code = 2206) 29 MEQ/L CALCIUM (test code = 2209) 10.1 MG/DL PROTEIN, TOTAL (test code = 2229) 7.7 G/DL ALBUMIN (test code = 2201) 5.1 G/DL CALC GLOBULIN (test code = 2240) 2.6 G/DL CALC A/G RATIO (test code = 2234) 2.0 RATIO BILIRUBIN, TOTAL (test code = 2207) 0.4 MG/DL ALKALINE PHOSPHATASE (test code = 2204) 86 U/L AST (test code = 2218) 22 U/L ALT (test code = 2219) 13 U/L Ervin Magallon DirkVITAMIN D, 25 [id number] 00:00:00* Test Item Value Reference Range Interpretation Comme nts VITAMIN D, 25 OH (test code = 4958) 44 NG/ML Ervin Magallon DirkTHYROID II PROFILE (TU, T4, T7, TSH)2023-04-11 00:00:00* Test Item Value Reference Range Interpretation Comme nts T-UPTAKE (test code = 2817) 30.2 % THYROX. BIND. CAPAC. (test c ode = 36792) 1.1 T4 (THYROXINE) (test code = 2819) 7.1 UG/DL CORRECTED T4 (FTI) (test cod e = 2820) 6.5 UG/DL TSH, THIRD GENERATION (test code = 2821) 3.640 UIU/ML Ervin CavazosCBC W/AUTO [id number] 00:00:00* Test Item Value Reference Range Interpretation Comme nts WBC (test code = 1001) 5.6 K/UL RBC (test code = 1002) 4.60 M/UL HEMOGLOBIN (test code = 1003) 14.2 G/DL HEMATOCRIT (test code = 1004) 43.7 % MCV (test code = 1005) 95.0 fL MCH (test code = 1006) 30.9 PG MCHC (test code = 1007) 32.5 G/DL RDW (test code = 1038) 12.8 % NEUTROPHILS (test code = 1008) 66.9 % LYMPHOCYTES (test code = 1010) 25.3 % MONOCYTES (test code = 1011) 6.4 % EOSINOPHILS (test code = 1012) 0.7 % BASOPHILS (test code = 1013) 0.5 % IMMATURE GRANULOCYTES (test code = 1036) 0.2 % NUCLEATED RBCS (test code = 1065) 0.0 /100WBC'S PLATELET COUNT (test code = 1015) 267 K/UL ABSOLUTE NEUTROPHILS (test c ode = 1066) 3.75 K/UL ABSOLUTE LYMPHOCYTES (test c ode = 1067) 1.42 K/UL ABSOLUTE MONOCYTES (test cod e = 1068) 0.36 K/UL ABSOLUTE EOSINOPHILS (test c ode = 1040) 0.04 K/UL ABSOLUTE BASOPHILS (test cod e = 1069) 0.03 K/UL ABS IMMATURE GRANULOCYTES (t est code = 1020) 0.01 K/UL ABS NUCLEATED RBCS (test cod e = 63337) 0.00 K/UL Ervin CavazosHEMOGLOBIN [id number] 00:00:00* Test Item Value Reference Range Interpretation Comme nts HEMOGLOBIN A1c (test code = 73189) 5.8 % Ervin CavazosLIPID [id number] 00:00:00* Test Item Value Reference Range Interpretation Comme nts CHOLESTEROL (test code = 2210) 202 MG/DL TRIGLYCERIDES (test code = 2232) 61 MG/DL HDL CHOLESTEROL (test code = 2220) 83 MG/DL CALC LDL CHOL (test code = 2237) 104 MG/DL RISK RATIO LDL/HDL (test cod e = 2238) 1.25 RATIO Ervin CavazosCOMPREHENSIVE METABOLIC [id number] 00:00:00* Test Item Value Reference Range Interpretation Comme nts GLUCOSE (test code = 2217) 87 MG/DL BUN (test code = 2208) 8 MG/DL CREATININE (test code = 2214) 0.70 MG/DL eGFR (2020 CKD-EPI) (test co de = 26557) 94 ML/MIN/1.73 CALC BUN/CREAT (test code = 2235) 11 RATIO SODIUM (test code = 2231) 138 MEQ/L POTASSIUM (test code = 2228) 4.4 MEQ/L CHLORIDE (test code = 2215) 98 MEQ/L CARBON DIOXIDE (test code = 2206) 29 MEQ/L CALCIUM (test code = 2209) 10.1 MG/DL PROTEIN, TOTAL (test code = 2229) 7.7 G/DL ALBUMIN (test code = 2201) 5.1 G/DL CALC GLOBULIN (test code = 2240) 2.6 G/DL CALC A/G RATIO (test code = 2234) 2.0 RATIO BILIRUBIN, TOTAL (test code = 2207) 0.4 MG/DL ALKALINE PHOSPHATASE (test code = 2204) 86 U/L AST (test code = 2218) 22 U/L ALT (test code = 2219) 13 U/L Ervin CavazosVITAMIN D, 25 [id number] 00:00:00* Test Item Value Reference Range Interpretation Comme nts VITAMIN D, 25 OH (test code = 4958) 44 NG/ML Ervin CavazosTHYROID II PROFILE (TU, T4, T7, TSH)2023-04-11 00:00:00* Test Item Value Reference Range Interpretation Comme nts T-UPTAKE (test code = 2817) 30.2 % THYROX. BIND. CAPAC. (test c ode = 98770) 1.1 T4 (THYROXINE) (test code = 2819) 7.1 UG/DL CORRECTED T4 (FTI) (test cod e = 2820) 6.5 UG/DL TSH, THIRD GENERATION (test code = 2821) 3.640 UIU/ML Ervin CavazosCBC W/AUTO [id number] 00:00:00* Test Item Value Reference Range Interpretation Comme nts WBC (test code = 1001) 5.6 K/UL RBC (test code = 1002) 4.60 M/UL HEMOGLOBIN (test code = 1003) 14.2 G/DL HEMATOCRIT (test code = 1004) 43.7 % MCV (test code = 1005) 95.0 fL MCH (test code = 1006) 30.9 PG MCHC (test code = 1007) 32.5 G/DL RDW (test code = 1038) 12.8 % NEUTROPHILS (test code = 1008) 66.9 % LYMPHOCYTES (test code = 1010) 25.3 % MONOCYTES (test code = 1011) 6.4 % EOSINOPHILS (test code = 1012) 0.7 % BASOPHILS (test code = 1013) 0.5 % IMMATURE GRANULOCYTES (test code = 1036) 0.2 % NUCLEATED RBCS (test code = 1065) 0.0 /100WBC'S PLATELET COUNT (test code = 1015) 267 K/UL ABSOLUTE NEUTROPHILS (test c ode = 1066) 3.75 K/UL ABSOLUTE LYMPHOCYTES (test c ode = 1067) 1.42 K/UL ABSOLUTE MONOCYTES (test cod e = 1068) 0.36 K/UL ABSOLUTE EOSINOPHILS (test c ode = 1040) 0.04 K/UL ABSOLUTE BASOPHILS (test cod e = 1069) 0.03 K/UL ABS IMMATURE GRANULOCYTES (t est code = 1020) 0.01 K/UL ABS NUCLEATED RBCS (test cod e = 24235) 0.00 K/UL Ervin CavazosHEMOGLOBIN [id number] 00:00:00* Test Item Value Reference Range Interpretation Comme nts HEMOGLOBIN A1c (test code = 35417) 5.8 % Ervin CavazosLIPID [id number] 00:00:00* Test Item Value Reference Range Interpretation Comme nts CHOLESTEROL (test code = 2210) 202 MG/DL TRIGLYCERIDES (test code = 2232) 61 MG/DL HDL CHOLESTEROL (test code = 2220) 83 MG/DL CALC LDL CHOL (test code = 2237) 104 MG/DL RISK RATIO LDL/HDL (test cod e = 2238) 1.25 RATIO Ervin CavazosCOMPREHENSIVE METABOLIC [id number] 00:00:00* Test Item Value Reference Range Interpretation Comme nts GLUCOSE (test code = 2217) 87 MG/DL BUN (test code = 2208) 8 MG/DL CREATININE (test code = 2214) 0.70 MG/DL eGFR (2020 CKD-EPI) (test co de = 49857) 94 ML/MIN/1.73 CALC BUN/CREAT (test code = 2235) 11 RATIO SODIUM (test code = 2231) 138 MEQ/L POTASSIUM (test code = 2228) 4.4 MEQ/L CHLORIDE (test code = 2215) 98 MEQ/L CARBON DIOXIDE (test code = 2206) 29 MEQ/L CALCIUM (test code = 2209) 10.1 MG/DL PROTEIN, TOTAL (test code = 2229) 7.7 G/DL ALBUMIN (test code = 2201) 5.1 G/DL CALC GLOBULIN (test code = 2240) 2.6 G/DL CALC A/G RATIO (test code = 2234) 2.0 RATIO BILIRUBIN, TOTAL (test code = 2207) 0.4 MG/DL ALKALINE PHOSPHATASE (test code = 2204) 86 U/L AST (test code = 2218) 22 U/L ALT (test code = 2219) 13 U/L Ervin CavazosVITAMIN D, 25 [id number] 00:00:00* Test Item Value Reference Range Interpretation Comme nts VITAMIN D, 25 OH (test code = 4958) 44 NG/ML Ervin CavazosTHYROID II PROFILE (TU, T4, T7, TSH)2023-04-11 00:00:00* Test Item Value Reference Range Interpretation Comme nts T-UPTAKE (test code = 2817) 30.2 % THYROX. BIND. CAPAC. (test c ode = 69985) 1.1 T4 (THYROXINE) (test code = 2819) 7.1 UG/DL CORRECTED T4 (FTI) (test cod e = 2820) 6.5 UG/DL TSH, THIRD GENERATION (test code = 2821) 3.640 UIU/ML Ervin CavazosCBC W/AUTO [id number] 00:00:00* Test Item Value Reference Range Interpretation Comme nts WBC (test code = 1001) 5.6 K/UL RBC (test code = 1002) 4.60 M/UL HEMOGLOBIN (test code = 1003) 14.2 G/DL HEMATOCRIT (test code = 1004) 43.7 % MCV (test code = 1005) 95.0 fL MCH (test code = 1006) 30.9 PG MCHC (test code = 1007) 32.5 G/DL RDW (test code = 1038) 12.8 % NEUTROPHILS (test code = 1008) 66.9 % LYMPHOCYTES (test code = 1010) 25.3 % MONOCYTES (test code = 1011) 6.4 % EOSINOPHILS (test code = 1012) 0.7 % BASOPHILS (test code = 1013) 0.5 % IMMATURE GRANULOCYTES (test code = 1036) 0.2 % NUCLEATED RBCS (test code = 1065) 0.0 /100WBC'S PLATELET COUNT (test code = 1015) 267 K/UL ABSOLUTE NEUTROPHILS (test c ode = 1066) 3.75 K/UL ABSOLUTE LYMPHOCYTES (test c ode = 1067) 1.42 K/UL ABSOLUTE MONOCYTES (test cod e = 1068) 0.36 K/UL ABSOLUTE EOSINOPHILS (test c ode = 1040) 0.04 K/UL ABSOLUTE BASOPHILS (test cod e = 1069) 0.03 K/UL ABS IMMATURE GRANULOCYTES (t est code = 1020) 0.01 K/UL ABS NUCLEATED RBCS (test cod e = 20547) 0.00 K/UL Ervin CavazosHEMOGLOBIN [id number] 00:00:00* Test Item Value Reference Range Interpretation Comme nts HEMOGLOBIN A1c (test code = 93765) 5.8 % Ervin CavazosLIPID [id number] 00:00:00* Test Item Value Reference Range Interpretation Comme nts CHOLESTEROL (test code = 2210) 202 MG/DL TRIGLYCERIDES (test code = 2232) 61 MG/DL HDL CHOLESTEROL (test code = 2220) 83 MG/DL CALC LDL CHOL (test code = 2237) 104 MG/DL RISK RATIO LDL/HDL (test cod e = 2238) 1.25 RATIO Ervin CavazosCOMPREHENSIVE METABOLIC [id number] 00:00:00* Test Item Value Reference Range Interpretation Comme nts GLUCOSE (test code = 2217) 87 MG/DL BUN (test code = 2208) 8 MG/DL CREATININE (test code = 2214) 0.70 MG/DL eGFR (2020 CKD-EPI) (test co de = 80992) 94 ML/MIN/1.73 CALC BUN/CREAT (test code = 2235) 11 RATIO SODIUM (test code = 2231) 138 MEQ/L POTASSIUM (test code = 2228) 4.4 MEQ/L CHLORIDE (test code = 2215) 98 MEQ/L CARBON DIOXIDE (test code = 2206) 29 MEQ/L CALCIUM (test code = 2209) 10.1 MG/DL PROTEIN, TOTAL (test code = 2229) 7.7 G/DL ALBUMIN (test code = 2201) 5.1 G/DL CALC GLOBULIN (test code = 2240) 2.6 G/DL CALC A/G RATIO (test code = 2234) 2.0 RATIO BILIRUBIN, TOTAL (test code = 2207) 0.4 MG/DL ALKALINE PHOSPHATASE (test code = 2204) 86 U/L AST (test code = 2218) 22 U/L ALT (test code = 2219) 13 U/L Ervin CavazosVITAMIN D, 25 [id number] 00:00:00* Test Item Value Reference Range Interpretation Comme nts VITAMIN D, 25 OH (test code = 4958) 44 NG/ML Ervin CavazosTHYROID II PROFILE (TU, T4, T7, TSH)2023-04-11 00:00:00* Test Item Value Reference Range Interpretation Comme nts T-UPTAKE (test code = 2817) 30.2 % THYROX. BIND. CAPAC. (test c ode = 16653) 1.1 T4 (THYROXINE) (test code = 2819) 7.1 UG/DL CORRECTED T4 (FTI) (test cod e = 2820) 6.5 UG/DL TSH, THIRD GENERATION (test code = 2821) 3.640 UIU/ML Ervin CavazosCBC W/AUTO [id number] 00:00:00* Test Item Value Reference Range Interpretation Comme nts WBC (test code = 1001) 5.6 K/UL RBC (test code = 1002) 4.60 M/UL HEMOGLOBIN (test code = 1003) 14.2 G/DL HEMATOCRIT (test code = 1004) 43.7 % MCV (test code = 1005) 95.0 fL MCH (test code = 1006) 30.9 PG MCHC (test code = 1007) 32.5 G/DL RDW (test code = 1038) 12.8 % NEUTROPHILS (test code = 1008) 66.9 % LYMPHOCYTES (test code = 1010) 25.3 % MONOCYTES (test code = 1011) 6.4 % EOSINOPHILS (test code = 1012) 0.7 % BASOPHILS (test code = 1013) 0.5 % IMMATURE GRANULOCYTES (test code = 1036) 0.2 % NUCLEATED RBCS (test code = 1065) 0.0 /100WBC'S PLATELET COUNT (test code = 1015) 267 K/UL ABSOLUTE NEUTROPHILS (test c ode = 1066) 3.75 K/UL ABSOLUTE LYMPHOCYTES (test c ode = 1067) 1.42 K/UL ABSOLUTE MONOCYTES (test cod e = 1068) 0.36 K/UL ABSOLUTE EOSINOPHILS (test c ode = 1040) 0.04 K/UL ABSOLUTE BASOPHILS (test cod e = 1069) 0.03 K/UL ABS IMMATURE GRANULOCYTES (t est code = 1020) 0.01 K/UL ABS NUCLEATED RBCS (test cod e = 27701) 0.00 K/UL Ervin CavazosHEMOGLOBIN [id number] 00:00:00* Test Item Value Reference Range Interpretation Comme camilla HEMOGLOBIN A1c (test code = 99633) 5.8 % Ervin CavazosLIPID [id number] 00:00:00* Test Item Value Reference Range Interpretation Comme nts CHOLESTEROL (test code = 2210) 202 MG/DL TRIGLYCERIDES (test code = 2232) 61 MG/DL HDL CHOLESTEROL (test code = 2220) 83 MG/DL CALC LDL CHOL (test code = 2237) 104 MG/DL RISK RATIO LDL/HDL (test cod e = 2238) 1.25 RATIO Ervin CavazosCOMPREHENSIVE METABOLIC [id number] 00:00:00* Test Item Value Reference Range Interpretation Comme nts GLUCOSE (test code = 2217) 87 MG/DL BUN (test code = 2208) 8 MG/DL CREATININE (test code = 2214) 0.70 MG/DL eGFR (2020 CKD-EPI) (test co de = 85478) 94 ML/MIN/1.73 CALC BUN/CREAT (test code = 2235) 11 RATIO SODIUM (test code = 2231) 138 MEQ/L POTASSIUM (test code = 2228) 4.4 MEQ/L CHLORIDE (test code = 2215) 98 MEQ/L CARBON DIOXIDE (test code = 2206) 29 MEQ/L CALCIUM (test code = 2209) 10.1 MG/DL PROTEIN, TOTAL (test code = 2229) 7.7 G/DL ALBUMIN (test code = 2201) 5.1 G/DL CALC GLOBULIN (test code = 2240) 2.6 G/DL CALC A/G RATIO (test code = 2234) 2.0 RATIO BILIRUBIN, TOTAL (test code = 2207) 0.4 MG/DL ALKALINE PHOSPHATASE (test code = 2204) 86 U/L AST (test code = 2218) 22 U/L ALT (test code = 2219) 13 U/L Ervin CavazosVITAMIN D, 25 [id number] 00:00:00* Test Item Value Reference Range Interpretation Comme nts VITAMIN D, 25 OH (test code = 4958) 44 NG/ML Ervin CavazosTHYROID II PROFILE (TU, T4, T7, TSH)2023-04-11 00:00:00* Test Item Value Reference Range Interpretation Comme nts T-UPTAKE (test code = 2817) 30.2 % THYROX. BIND. CAPAC. (test c ode = 82067) 1.1 T4 (THYROXINE) (test code = 2819) 7.1 UG/DL CORRECTED T4 (FTI) (test cod e = 2820) 6.5 UG/DL TSH, THIRD GENERATION (test code = 2821) 3.640 UIU/ML Ervin CavazosCBC W/AUTO [id number] 00:00:00* Test Item Value Reference Range Interpretation Comme nts WBC (test code = 1001) 5.6 K/UL RBC (test code = 1002) 4.60 M/UL HEMOGLOBIN (test code = 1003) 14.2 G/DL HEMATOCRIT (test code = 1004) 43.7 % MCV (test code = 1005) 95.0 fL MCH (test code = 1006) 30.9 PG MCHC (test code = 1007) 32.5 G/DL RDW (test code = 1038) 12.8 % NEUTROPHILS (test code = 1008) 66.9 % LYMPHOCYTES (test code = 1010) 25.3 % MONOCYTES (test code = 1011) 6.4 % EOSINOPHILS (test code = 1012) 0.7 % BASOPHILS (test code = 1013) 0.5 % IMMATURE GRANULOCYTES (test code = 1036) 0.2 % NUCLEATED RBCS (test code = 1065) 0.0 /100WBC'S PLATELET COUNT (test code = 1015) 267 K/UL ABSOLUTE NEUTROPHILS (test c ode = 1066) 3.75 K/UL ABSOLUTE LYMPHOCYTES (test c ode = 1067) 1.42 K/UL ABSOLUTE MONOCYTES (test cod e = 1068) 0.36 K/UL ABSOLUTE EOSINOPHILS (test c ode = 1040) 0.04 K/UL ABSOLUTE BASOPHILS (test cod e = 1069) 0.03 K/UL ABS IMMATURE GRANULOCYTES (t est code = 1020) 0.01 K/UL ABS NUCLEATED RBCS (test cod e = 34950) 0.00 K/UL Ervin CavazosHEMOGLOBIN [id number] 00:00:00* Test Item Value Reference Range Interpretation Comme nts HEMOGLOBIN A1c (test code = 23465) 5.8 % Ervin CavazosLIPID [id number] 00:00:00* Test Item Value Reference Range Interpretation Comme nts CHOLESTEROL (test code = 2210) 202 MG/DL TRIGLYCERIDES (test code = 2232) 61 MG/DL HDL CHOLESTEROL (test code = 2220) 83 MG/DL CALC LDL CHOL (test code = 2237) 104 MG/DL RISK RATIO LDL/HDL (test cod e = 2238) 1.25 RATIO Ervin CavazosCOMPREHENSIVE METABOLIC [id number] 00:00:00* Test Item Value Reference Range Interpretation Comme nts GLUCOSE (test code = 2217) 87 MG/DL BUN (test code = 2208) 8 MG/DL CREATININE (test code = 2214) 0.70 MG/DL eGFR (2020 CKD-EPI) (test co de = 69015) 94 ML/MIN/1.73 CALC BUN/CREAT (test code = 2235) 11 RATIO SODIUM (test code = 2231) 138 MEQ/L POTASSIUM (test code = 2228) 4.4 MEQ/L CHLORIDE (test code = 2215) 98 MEQ/L CARBON DIOXIDE (test code = 2206) 29 MEQ/L CALCIUM (test code = 2209) 10.1 MG/DL PROTEIN, TOTAL (test code = 2229) 7.7 G/DL ALBUMIN (test code = 2201) 5.1 G/DL CALC GLOBULIN (test code = 2240) 2.6 G/DL CALC A/G RATIO (test code = 2234) 2.0 RATIO BILIRUBIN, TOTAL (test code = 2207) 0.4 MG/DL ALKALINE PHOSPHATASE (test code = 2204) 86 U/L AST (test code = 2218) 22 U/L ALT (test code = 2219) 13 U/L Ervin CavazosVITAMIN D, 25 [id number] 00:00:00* Test Item Value Reference Range Interpretation Comme nts VITAMIN D, 25 OH (test code = 4958) 44 NG/ML Ervin CavazosTHYROID II PROFILE (TU, T4, T7, TSH)2023-04-11 00:00:00* Test Item Value Reference Range Interpretation Comme nts T-UPTAKE (test code = 2817) 30.2 % THYROX. BIND. CAPAC. (test c ode = 87095) 1.1 T4 (THYROXINE) (test code = 2819) 7.1 UG/DL CORRECTED T4 (FTI) (test cod e = 2820) 6.5 UG/DL TSH, THIRD GENERATION (test code = 2821) 3.640 UIU/ML Ervin CavazosCBC W/AUTO [id number] 00:00:00* Test Item Value Reference Range Interpretation Comme nts WBC (test code = 1001) 5.6 K/UL RBC (test code = 1002) 4.60 M/UL HEMOGLOBIN (test code = 1003) 14.2 G/DL HEMATOCRIT (test code = 1004) 43.7 % MCV (test code = 1005) 95.0 fL MCH (test code = 1006) 30.9 PG MCHC (test code = 1007) 32.5 G/DL RDW (test code = 1038) 12.8 % NEUTROPHILS (test code = 1008) 66.9 % LYMPHOCYTES (test code = 1010) 25.3 % MONOCYTES (test code = 1011) 6.4 % EOSINOPHILS (test code = 1012) 0.7 % BASOPHILS (test code = 1013) 0.5 % IMMATURE GRANULOCYTES (test code = 1036) 0.2 % NUCLEATED RBCS (test code = 1065) 0.0 /100WBC'S PLATELET COUNT (test code = 1015) 267 K/UL ABSOLUTE NEUTROPHILS (test c ode = 1066) 3.75 K/UL ABSOLUTE LYMPHOCYTES (test c ode = 1067) 1.42 K/UL ABSOLUTE MONOCYTES (test cod e = 1068) 0.36 K/UL ABSOLUTE EOSINOPHILS (test c ode = 1040) 0.04 K/UL ABSOLUTE BASOPHILS (test cod e = 1069) 0.03 K/UL ABS IMMATURE GRANULOCYTES (t est code = 1020) 0.01 K/UL ABS NUCLEATED RBCS (test cod e = 89811) 0.00 K/UL Ervin CavazosHEMOGLOBIN [id number] 00:00:00* Test Item Value Reference Range Interpretation Comme nts HEMOGLOBIN A1c (test code = 40153) 5.8 % Ervin CavazosLIPID [id number] 00:00:00* Test Item Value Reference Range Interpretation Comme nts CHOLESTEROL (test code = 2210) 202 MG/DL TRIGLYCERIDES (test code = 2232) 61 MG/DL HDL CHOLESTEROL (test code = 2220) 83 MG/DL CALC LDL CHOL (test code = 2237) 104 MG/DL RISK RATIO LDL/HDL (test cod e = 2238) 1.25 RATIO Ervin CavazosCOMPREHENSIVE METABOLIC [id number] 00:00:00* Test Item Value Reference Range Interpretation Comme nts GLUCOSE (test code = 2217) 87 MG/DL BUN (test code = 2208) 8 MG/DL CREATININE (test code = 2214) 0.70 MG/DL eGFR (2020 CKD-EPI) (test co de = 28711) 94 ML/MIN/1.73 CALC BUN/CREAT (test code = 2235) 11 RATIO SODIUM (test code = 223) 138 MEQ/L POTASSIUM (test code = 2228) 4.4 MEQ/L CHLORIDE (test code = 2215) 98 MEQ/L CARBON DIOXIDE (test code = 2206) 29 MEQ/L CALCIUM (test code = 2209) 10.1 MG/DL PROTEIN, TOTAL (test code = 2229) 7.7 G/DL ALBUMIN (test code = 2201) 5.1 G/DL CALC GLOBULIN (test code = 2240) 2.6 G/DL CALC A/G RATIO (test code = 2234) 2.0 RATIO BILIRUBIN, TOTAL (test code = 2207) 0.4 MG/DL ALKALINE PHOSPHATASE (test code = 2204) 86 U/L AST (test code = 2218) 22 U/L ALT (test code = 2219) 13 U/L Ervin CavazosVITAMIN D, 25 [id number] 00:00:00* Test Item Value Reference Range Interpretation Comme [facility] VITAMIN D, 25 OH (test code = 4958) 44 NG/ML Ervin CavazosTHYROID II PROFILE (TU, T4, T7, TSH)2023-04-11 00:00:00* Test Item Value Reference Range Interpretation Comme nts T-UPTAKE (test code = 2817) 30.2 % THYROX. BIND. CAPAC. (test c ode = 43419) 1.1 T4 (THYROXINE) (test code = 2819) 7.1 UG/DL CORRECTED T4 (FTI) (test cod e = 2820) 6.5 UG/DL TSH, THIRD GENERATION (test code = 2821) 3.640 UIU/ML Ervin CavazosCBC W/AUTO [id number] 00:00:00* Test Item Value Reference Range Interpretation Comme nts WBC (test code = 1001) 5.6 K/UL RBC (test code = 1002) 4.60 M/UL HEMOGLOBIN (test code = 1003) 14.2 G/DL HEMATOCRIT (test code = 1004) 43.7 % MCV (test code = 1005) 95.0 fL MCH (test code = 1006) 30.9 PG MCHC (test code = 1007) 32.5 G/DL RDW (test code = 1038) 12.8 % NEUTROPHILS (test code = 1008) 66.9 % LYMPHOCYTES (test code = 1010) 25.3 % MONOCYTES (test code = 1011) 6.4 % EOSINOPHILS (test code = 1012) 0.7 % BASOPHILS (test code = 1013) 0.5 % IMMATURE GRANULOCYTES (test code = 1036) 0.2 % NUCLEATED RBCS (test code = 1065) 0.0 /100WBC'S PLATELET COUNT (test code = 1015) 267 K/UL ABSOLUTE NEUTROPHILS (test c ode = 1066) 3.75 K/UL ABSOLUTE LYMPHOCYTES (test c ode = 1067) 1.42 K/UL ABSOLUTE MONOCYTES (test cod e = 1068) 0.36 K/UL ABSOLUTE EOSINOPHILS (test c ode = 1040) 0.04 K/UL ABSOLUTE BASOPHILS (test cod e = 1069) 0.03 K/UL ABS IMMATURE GRANULOCYTES (t est code = 1020) 0.01 K/UL ABS NUCLEATED RBCS (test cod e = 11682) 0.00 K/UL Ervin CavazosHEMOGLOBIN [id number] 00:00:00* Test Item Value Reference Range Interpretation Comme nts HEMOGLOBIN A1c (test code = 25165) 5.8 % Ervin CavazosLIPID [id number] 00:00:00* Test Item Value Reference Range Interpretation Comme nts CHOLESTEROL (test code = 2210) 202 MG/DL TRIGLYCERIDES (test code = 2232) 61 MG/DL HDL CHOLESTEROL (test code = 2220) 83 MG/DL CALC LDL CHOL (test code = 2237) 104 MG/DL RISK RATIO LDL/HDL (test cod e = 2238) 1.25 RATIO Ervin CavazosCOMPREHENSIVE METABOLIC [id number] 00:00:00* Test Item Value Reference Range Interpretation Comme nts GLUCOSE (test code = 2217) 87 MG/DL BUN (test code = 2208) 8 MG/DL CREATININE (test code = 2214) 0.70 MG/DL eGFR (2020 CKD-EPI) (test co de = 98442) 94 ML/MIN/1.73 CALC BUN/CREAT (test code = 2235) 11 RATIO SODIUM (test code = 2231) 138 MEQ/L POTASSIUM (test code = 2228) 4.4 MEQ/L CHLORIDE (test code = 2215) 98 MEQ/L CARBON DIOXIDE (test code = 2206) 29 MEQ/L CALCIUM (test code = 2209) 10.1 MG/DL PROTEIN, TOTAL (test code = 2229) 7.7 G/DL ALBUMIN (test code = 2201) 5.1 G/DL CALC GLOBULIN (test code = 2240) 2.6 G/DL CALC A/G RATIO (test code = 2234) 2.0 RATIO BILIRUBIN, TOTAL (test code = 2207) 0.4 MG/DL ALKALINE PHOSPHATASE (test code = 2204) 86 U/L AST (test code = 2218) 22 U/L ALT (test code = 2219) 13 U/L Ervin CavazosVITAMIN D, 25 [id number] 00:00:00* Test Item Value Reference Range Interpretation Comme nts VITAMIN D, 25 OH (test code = 4958) 44 NG/ML Ervin CavazosTHYROID II PROFILE (TU, T4, T7, TSH)2023-04-11 00:00:00* Test Item Value Reference Range Interpretation Comme nts T-UPTAKE (test code = 2817) 30.2 % THYROX. BIND. CAPAC. (test c ode = 81025) 1.1 T4 (THYROXINE) (test code = 2819) 7.1 UG/DL CORRECTED T4 (FTI) (test cod e = 2820) 6.5 UG/DL TSH, THIRD GENERATION (test code = 2821) 3.640 UIU/ML Ervin CavazosCBC W/AUTO [id number] 00:00:00* Test Item Value Reference Range Interpretation Comme nts WBC (test code = 1001) 5.6 K/UL RBC (test code = 1002) 4.60 M/UL HEMOGLOBIN (test code = 1003) 14.2 G/DL HEMATOCRIT (test code = 1004) 43.7 % MCV (test code = 1005) 95.0 fL MCH (test code = 1006) 30.9 PG MCHC (test code = 1007) 32.5 G/DL RDW (test code = 1038) 12.8 % NEUTROPHILS (test code = 1008) 66.9 % LYMPHOCYTES (test code = 1010) 25.3 % MONOCYTES (test code = 1011) 6.4 % EOSINOPHILS (test code = 1012) 0.7 % BASOPHILS (test code = 1013) 0.5 % IMMATURE GRANULOCYTES (test code = 1036) 0.2 % NUCLEATED RBCS (test code = 1065) 0.0 /100WBC'S PLATELET COUNT (test code = 1015) 267 K/UL ABSOLUTE NEUTROPHILS (test c ode = 1066) 3.75 K/UL ABSOLUTE LYMPHOCYTES (test c ode = 1067) 1.42 K/UL ABSOLUTE MONOCYTES (test cod e = 1068) 0.36 K/UL ABSOLUTE EOSINOPHILS (test c ode = 1040) 0.04 K/UL ABSOLUTE BASOPHILS (test cod e = 1069) 0.03 K/UL ABS IMMATURE GRANULOCYTES (t est code = 1020) 0.01 K/UL ABS NUCLEATED RBCS (test cod e = 24135) 0.00 K/UL Ervin CavazosHEMOGLOBIN [id number] 00:00:00* Test Item Value Reference Range Interpretation Comme nts HEMOGLOBIN A1c (test code = 34258) 5.8 % Ervin CavazosLIPID [id number] 00:00:00* Test Item Value Reference Range Interpretation Comme nts CHOLESTEROL (test code = 2210) 202 MG/DL TRIGLYCERIDES (test code = 2232) 61 MG/DL HDL CHOLESTEROL (test code = 2220) 83 MG/DL CALC LDL CHOL (test code = 2237) 104 MG/DL RISK RATIO LDL/HDL (test cod e = 2238) 1.25 RATIO Ervin CavazosCOMPREHENSIVE METABOLIC [id number] 00:00:00* Test Item Value Reference Range Interpretation Comme nts GLUCOSE (test code = 2217) 87 MG/DL BUN (test code = 2208) 8 MG/DL CREATININE (test code = 2214) 0.70 MG/DL eGFR (2020 CKD-EPI) (test co de = 56085) 94 ML/MIN/1.73 CALC BUN/CREAT (test code = 2235) 11 RATIO SODIUM (test code = 2231) 138 MEQ/L POTASSIUM (test code = 2228) 4.4 MEQ/L CHLORIDE (test code = 2215) 98 MEQ/L CARBON DIOXIDE (test code = 2206) 29 MEQ/L CALCIUM (test code = 2209) 10.1 MG/DL PROTEIN, TOTAL (test code = 2229) 7.7 G/DL ALBUMIN (test code = 220) 5.1 G/DL CALC GLOBULIN (test code = 2240) 2.6 G/DL CALC A/G RATIO (test code = 2234) 2.0 RATIO BILIRUBIN, TOTAL (test code = 7) 0.4 MG/DL ALKALINE PHOSPHATASE (test code = 2203) 86 U/L AST (test code = 8) 22 U/L ALT (test code = 2219) 13 U/L Ervin CavazosVITAMIN D, 25 [id number] 00:00:00* Test Item Value Reference Range Interpretation Comme nts VITAMIN D, 25 OH (test code = 4958) 44 NG/ML Ervin CavazosTHYROID II PROFILE (TU, T4, T7, TSH)2023-04-11 00:00:00* Test Item Value Reference Range Interpretation Comme nts T-UPTAKE (test code = 2817) 30.2 % THYROX. BIND. CAPAC. (test c ode = 05437) 1.1 T4 (THYROXINE) (test code = 2819) 7.1 UG/DL CORRECTED T4 (FTI) (test cod e = 2820) 6.5 UG/DL TSH, THIRD GENERATION (test code = 2821) 3.640 UIU/ML Ervin CavazosCBC W/AUTO [id number] 00:00:00* Test Item Value Reference Range Interpretation Comme nts WBC (test code = 1001) 5.6 K/UL RBC (test code = 1002) 4.60 M/UL HEMOGLOBIN (test code = 1003) 14.2 G/DL HEMATOCRIT (test code = 1004) 43.7 % MCV (test code = 1005) 95.0 fL MCH (test code = 1006) 30.9 PG MCHC (test code = 1007) 32.5 G/DL RDW (test code = 1038) 12.8 % NEUTROPHILS (test code = 1008) 66.9 % LYMPHOCYTES (test code = 1010) 25.3 % MONOCYTES (test code = 1011) 6.4 % EOSINOPHILS (test code = 1012) 0.7 % BASOPHILS (test code = 1013) 0.5 % IMMATURE GRANULOCYTES (test code = 1036) 0.2 % NUCLEATED RBCS (test code = 1065) 0.0 /100WBC'S PLATELET COUNT (test code = 1015) 267 K/UL ABSOLUTE NEUTROPHILS (test c ode = 1066) 3.75 K/UL ABSOLUTE LYMPHOCYTES (test c ode = 1067) 1.42 K/UL ABSOLUTE MONOCYTES (test cod e = 1068) 0.36 K/UL ABSOLUTE EOSINOPHILS (test c ode = 1040) 0.04 K/UL ABSOLUTE BASOPHILS (test cod e = 1069) 0.03 K/UL ABS IMMATURE GRANULOCYTES (t est code = 1020) 0.01 K/UL ABS NUCLEATED RBCS (test cod e = 26081) 0.00 K/UL Ervin CavazosHEMOGLOBIN [id number] 00:00:00* Test Item Value Reference Range Interpretation Comme nts HEMOGLOBIN A1c (test code = 25833) 5.8 % Ervin CavazosLIPID [id number] 00:00:00* Test Item Value Reference Range Interpretation Comme nts CHOLESTEROL (test code = 2210) 202 MG/DL TRIGLYCERIDES (test code = 2232) 61 MG/DL HDL CHOLESTEROL (test code = 2220) 83 MG/DL CALC LDL CHOL (test code = 2237) 104 MG/DL RISK RATIO LDL/HDL (test cod e = 2238) 1.25 RATIO Ervin Magallon AustinOCCULT BLD,FECAL,IMMUNOASSAY [id number] 00:00:00* Test Item Value Reference Range Interpretation Comme nts OCCULT BLD, FECAL (test code = 87428) NEGATIVE Ervin Magallon AustinOCCULT BLD,FECAL,IMMUNOASSAY [id number] 00:00:00* Test Item Value Reference Range Interpretation Comme nts OCCULT BLD, FECAL (test code = 54572) NEGATIVE Ervin F AustinOCCULT BLD,FECAL,IMMUNOASSAY [id number] 00:00:00* Test Item Value Reference Range Interpretation Comme nts OCCULT BLD, FECAL (test code = 26025) NEGATIVE Revin F AustinOCCULT BLD,FECAL,IMMUNOASSAY [id number] 00:00:00* Test Item Value Reference Range Interpretation Comme nts OCCULT BLD, FECAL (test code = 32370) NEGATIVE Ervin F AustinOCCULT BLD,FECAL,IMMUNOASSAY [id number] 00:00:00* Test Item Value Reference Range Interpretation Comme nts OCCULT BLD, FECAL (test code = 66965) NEGATIVE Ervin F AustinOCCULT BLD,FECAL,IMMUNOASSAY [id number] 00:00:00* Test Item Value Reference Range Interpretation Comme nts OCCULT BLD, FECAL (test code = 62027) NEGATIVE Ervin F AustinOCCULT BLD,FECAL,IMMUNOASSAY [id number] 00:00:00* Test Item Value Reference Range Interpretation Comme nts OCCULT BLD, FECAL (test code = 36340) NEGATIVE Ervin F AustinOCCULT BLD,FECAL,IMMUNOASSAY [id number] 00:00:00* Test Item Value Reference Range Interpretation Comme nts OCCULT BLD, FECAL (test code = 49793) NEGATIVE Ervin F AustinOCCULT BLD,FECAL,IMMUNOASSAY [id number] 00:00:00* Test Item Value Reference Range Interpretation Comme nts OCCULT BLD, FECAL (test code = 98630) NEGATIVE Ervin CavazosCOMPREHENSIVE METABOLIC [id number] 00:00:00* Test Item Value Reference Range Interpretation Comme nts GLUCOSE (test code = 2217) 91 MG/DL BUN (test code = 2208) 8 MG/DL CREATININE (test code = 2214) 0.65 MG/DL eGFR AMER. (test cod e = 40981) 106 ML/MIN/1.73 eGFR NON- AMER. (test code = 90114) 92 ML/MIN/1.73 CALC BUN/CREAT (test code = 2235) 12 RATIO SODIUM (test code = 2231) 142 MEQ/L POTASSIUM (test code = 2228) 4.2 MEQ/L CHLORIDE (test code = 2215) 103 MEQ/L CARBON DIOXIDE (test code = 2206) 27 MEQ/L CALCIUM (test code = 2209) 10.0 MG/DL PROTEIN, TOTAL (test code = 2229) 7.1 G/DL ALBUMIN (test code = 2201) 4.5 G/DL CALC GLOBULIN (test code = 2240) 2.6 G/DL CALC A/G RATIO (test code = 2234) 1.7 RATIO BILIRUBIN, TOTAL (test code = 2207) 0.4 MG/DL ALKALINE PHOSPHATASE (test code = 2204) 73 U/L AST (test code = 2218) 16 U/L ALT (test code = 2219) 10 U/L Ervin CavazosHEMOGLOBIN [id number] 00:00:00* Test Item Value Reference Range Interpretation Comme nts HEMOGLOBIN A1c (test code = 71071) 5.8 % Ervin CavazosVAGINAL PATHOGENS DNA [id number] 00:00:00* Test Item Value Reference Range Interpretation Comme nts SHYAM SPECIES (test code = 67385) NEGATIVE G. VAGINALIS (test code = ) NEGATIVE T. VAGINALIS (test code = ) NEGATIVE Ervin CavazosCBC W/AUTO [id number] 00:00:00* Test Item Value Reference Range Interpretation Comme nts WBC (test code = 1001) 5.2 K/UL RBC (test code = 1002) 4.15 M/UL HEMOGLOBIN (test code = 1003) 12.5 G/DL HEMATOCRIT (test code = 1004) 37.9 % MCV (test code = 1005) 91.3 fL MCH (test code = 1006) 30.1 PG MCHC (test code = 1007) 33.0 G/DL RDW (test code = 1038) 13.3 % NEUTROPHILS (test code = 1008) 69.5 % LYMPHOCYTES (test code = 1010) 21.3 % MONOCYTES (test code = 1011) 6.9 % EOSINOPHILS (test code = 1012) 1.3 % BASOPHILS (test code = 1013) 0.6 % IMMATURE GRANULOCYTES (test code = 1036) 0.4 % NUCLEATED RBCS (test code = 1065) 0.0 /100WBC'S PLATELET COUNT (test code = 1015) 225 K/UL ABSOLUTE NEUTROPHILS (test c ode = 1066) 3.61 K/UL ABSOLUTE LYMPHOCYTES (test c ode = 1067) 1.11 K/UL ABSOLUTE MONOCYTES (test cod e = 1068) 0.36 K/UL ABSOLUTE EOSINOPHILS (test c ode = 1040) 0.07 K/UL ABSOLUTE BASOPHILS (test cod e = 1069) 0.03 K/UL ABS IMMATURE GRANULOCYTES (t est code = 1020) 0.02 K/UL ABS NUCLEATED RBCS (test cod e = 81387) 0.00 K/UL Ervin CavazosLIPID [id number] 00:00:00* Test Item Value Reference Range Interpretation Comme nts CHOLESTEROL (test code = 2210) 171 MG/DL TRIGLYCERIDES (test code = 2232) 86 MG/DL HDL CHOLESTEROL (test code = 2220) 57 MG/DL CALC LDL CHOL (test code = 2237) 96 MG/DL RISK RATIO LDL/HDL (test cod e = 2238) 1.68 RATIO Ervin CavazosCOMPREHENSIVE METABOLIC [id number] 00:00:00* Test Item Value Reference Range Interpretation Comme nts GLUCOSE (test code = 2217) 91 MG/DL BUN (test code = 2208) 8 MG/DL CREATININE (test code = 2214) 0.65 MG/DL eGFR AMER. (test cod e = 71749) 106 ML/MIN/1.73 eGFR NON- AMER. (test code = 21266) 92 ML/MIN/1.73 CALC BUN/CREAT (test code = 2235) 12 RATIO SODIUM (test code = 2231) 142 MEQ/L POTASSIUM (test code = 2228) 4.2 MEQ/L CHLORIDE (test code = 2215) 103 MEQ/L CARBON DIOXIDE (test code = 2206) 27 MEQ/L CALCIUM (test code = 2209) 10.0 MG/DL PROTEIN, TOTAL (test code = 2229) 7.1 G/DL ALBUMIN (test code = 2201) 4.5 G/DL CALC GLOBULIN (test code = 2240) 2.6 G/DL CALC A/G RATIO (test code = 2234) 1.7 RATIO BILIRUBIN, TOTAL (test code = 2207) 0.4 MG/DL ALKALINE PHOSPHATASE (test code = 2204) 73 U/L AST (test code = 2218) 16 U/L ALT (test code = 2219) 10 U/L Ervin StephensOGLOBIN [id number] 00:00:00* Test Item Value Reference Range Interpretation Comme nts HEMOGLOBIN A1c (test code = 69821) 5.8 % Ervin CavazosCBC W/AUTO [id number] 00:00:00* Test Item Value Reference Range Interpretation Comme nts WBC (test code = 1001) 5.2 K/UL RBC (test code = 1002) 4.15 M/UL HEMOGLOBIN (test code = 1003) 12.5 G/DL HEMATOCRIT (test code = 1004) 37.9 % MCV (test code = 1005) 91.3 fL MCH (test code = 1006) 30.1 PG MCHC (test code = 1007) 33.0 G/DL RDW (test code = 1038) 13.3 % NEUTROPHILS (test code = 1008) 69.5 % LYMPHOCYTES (test code = 1010) 21.3 % MONOCYTES (test code = 1011) 6.9 % EOSINOPHILS (test code = 1012) 1.3 % BASOPHILS (test code = 1013) 0.6 % IMMATURE GRANULOCYTES (test code = 1036) 0.4 % NUCLEATED RBCS (test code = 1065) 0.0 /100WBC'S PLATELET COUNT (test code = 1015) 225 K/UL ABSOLUTE NEUTROPHILS (test c ode = 1066) 3.61 K/UL ABSOLUTE LYMPHOCYTES (test c ode = 1067) 1.11 K/UL ABSOLUTE MONOCYTES (test cod e = 1068) 0.36 K/UL ABSOLUTE EOSINOPHILS (test c ode = 1040) 0.07 K/UL ABSOLUTE BASOPHILS (test cod e = 1069) 0.03 K/UL ABS IMMATURE GRANULOCYTES (t est code = 1020) 0.02 K/UL ABS NUCLEATED RBCS (test cod e = 28260) 0.00 K/UL Ervin CavazosVAGINAL PATHOGENS DNA [id number] 00:00:00* Test Item Value Reference Range Interpretation Comme nts SHYAM SPECIES (test code = 58886) NEGATIVE G. VAGINALIS (test code = ) NEGATIVE T. VAGINALIS (test code = ) NEGATIVE Ervin CavazosLIPID [id number] 00:00:00* Test Item Value Reference Range Interpretation Comme nts CHOLESTEROL (test code = 2210) 171 MG/DL TRIGLYCERIDES (test code = 2232) 86 MG/DL HDL CHOLESTEROL (test code = 2220) 57 MG/DL CALC LDL CHOL (test code = 2237) 96 MG/DL RISK RATIO LDL/HDL (test cod e = 2238) 1.68 RATIO Ervin CavazosCOMPREHENSIVE METABOLIC [id number] 00:00:00* Test Item Value Reference Range Interpretation Comme nts GLUCOSE (test code = 2217) 91 MG/DL BUN (test code = 2208) 8 MG/DL CREATININE (test code = 2214) 0.65 MG/DL eGFR AMER. (test cod e = 87429) 106 ML/MIN/1.73 eGFR NON- AMER. (test code = 85332) 92 ML/MIN/1.73 CALC BUN/CREAT (test code = 2235) 12 RATIO SODIUM (test code = 2231) 142 MEQ/L POTASSIUM (test code = 2228) 4.2 MEQ/L CHLORIDE (test code = 2215) 103 MEQ/L CARBON DIOXIDE (test code = 2206) 27 MEQ/L CALCIUM (test code = 2209) 10.0 MG/DL PROTEIN, TOTAL (test code = 2229) 7.1 G/DL ALBUMIN (test code = 2201) 4.5 G/DL CALC GLOBULIN (test code = 2240) 2.6 G/DL CALC A/G RATIO (test code = 2234) 1.7 RATIO BILIRUBIN, TOTAL (test code = 2207) 0.4 MG/DL ALKALINE PHOSPHATASE (test code = 2204) 73 U/L AST (test code = 2218) 16 U/L ALT (test code = 2219) 10 U/L Ervin CavazosHEMOGLOBIN [id number] 00:00:00* Test Item Value Reference Range Interpretation Comme camilla HEMOGLOBIN A1c (test code = 48127) 5.8 % Ervin CavazosVAGINAL PATHOGENS DNA [id number] 00:00:00* Test Item Value Reference Range Interpretation Comme nts SHYAM SPECIES (test code = 89780) NEGATIVE G. VAGINALIS (test code = ) NEGATIVE T. VAGINALIS (test code = ) NEGATIVE Ervin CavazosCBC W/AUTO [id number] 00:00:00* Test Item Value Reference Range Interpretation Comme nts WBC (test code = 1001) 5.2 K/UL RBC (test code = 1002) 4.15 M/UL HEMOGLOBIN (test code = 1003) 12.5 G/DL HEMATOCRIT (test code = 1004) 37.9 % MCV (test code = 1005) 91.3 fL MCH (test code = 1006) 30.1 PG MCHC (test code = 1007) 33.0 G/DL RDW (test code = 1038) 13.3 % NEUTROPHILS (test code = 1008) 69.5 % LYMPHOCYTES (test code = 1010) 21.3 % MONOCYTES (test code = 1011) 6.9 % EOSINOPHILS (test code = 1012) 1.3 % BASOPHILS (test code = 1013) 0.6 % IMMATURE GRANULOCYTES (test code = 1036) 0.4 % NUCLEATED RBCS (test code = 1065) 0.0 /100WBC'S PLATELET COUNT (test code = 1015) 225 K/UL ABSOLUTE NEUTROPHILS (test c ode = 1066) 3.61 K/UL ABSOLUTE LYMPHOCYTES (test c ode = 1067) 1.11 K/UL ABSOLUTE MONOCYTES (test cod e = 1068) 0.36 K/UL ABSOLUTE EOSINOPHILS (test c ode = 1040) 0.07 K/UL ABSOLUTE BASOPHILS (test cod e = 1069) 0.03 K/UL ABS IMMATURE GRANULOCYTES (t est code = 1020) 0.02 K/UL ABS NUCLEATED RBCS (test cod e = 02316) 0.00 K/UL Ervin Magallon AustinLIPID [id number] 00:00:00* Test Item Value Reference Range Interpretation Comme nts CHOLESTEROL (test code = 2210) 171 MG/DL TRIGLYCERIDES (test code = 2232) 86 MG/DL HDL CHOLESTEROL (test code = 2220) 57 MG/DL CALC LDL CHOL (test code = 2237) 96 MG/DL RISK RATIO LDL/HDL (test cod e = 2238) 1.68 RATIO Ervin CavazosCOMPREHENSIVE METABOLIC [id number] 00:00:00* Test Item Value Reference Range Interpretation Comme nts GLUCOSE (test code = 2217) 91 MG/DL BUN (test code = 2208) 8 MG/DL CREATININE (test code = 2214) 0.65 MG/DL eGFR AMER. (test cod e = 72667) 106 ML/MIN/1.73 eGFR NON- AMER. (test code = 31688) 92 ML/MIN/1.73 CALC BUN/CREAT (test code = 2235) 12 RATIO SODIUM (test code = 2231) 142 MEQ/L POTASSIUM (test code = 2228) 4.2 MEQ/L CHLORIDE (test code = 2215) 103 MEQ/L CARBON DIOXIDE (test code = 2206) 27 MEQ/L CALCIUM (test code = 2209) 10.0 MG/DL PROTEIN, TOTAL (test code = 2229) 7.1 G/DL ALBUMIN (test code = 2201) 4.5 G/DL CALC GLOBULIN (test code = 2240) 2.6 G/DL CALC A/G RATIO (test code = 2234) 1.7 RATIO BILIRUBIN, TOTAL (test code = 2207) 0.4 MG/DL ALKALINE PHOSPHATASE (test code = 2204) 73 U/L AST (test code = 2218) 16 U/L ALT (test code = 2219) 10 U/L Ervin CavazosHEMOGLOBIN [id number] 00:00:00* Test Item Value Reference Range Interpretation Comme nts HEMOGLOBIN A1c (test code = 23780) 5.8 % Ervin Naun CavazosVAGINAL PATHOGENS DNA [id number] 00:00:00* Test Item Value Reference Range Interpretation Comme nts SHYAM SPECIES (test code = 47789) NEGATIVE G. VAGINALIS (test code = 13008) NEGATIVE T. VAGINALIS (test code = 03642) NEGATIVE Ervin Magallon DirkCBC W/AUTO [id number] 00:00:00* Test Item Value Reference Range Interpretation Comme nts WBC (test code = 1001) 5.2 K/UL RBC (test code = 1002) 4.15 M/UL HEMOGLOBIN (test code = 1003) 12.5 G/DL HEMATOCRIT (test code = 1004) 37.9 % MCV (test code = 1005) 91.3 fL MCH (test code = 1006) 30.1 PG MCHC (test code = 1007) 33.0 G/DL RDW (test code = 1038) 13.3 % NEUTROPHILS (test code = 1008) 69.5 % LYMPHOCYTES (test code = 1010) 21.3 % MONOCYTES (test code = 1011) 6.9 % EOSINOPHILS (test code = 1012) 1.3 % BASOPHILS (test code = 1013) 0.6 % IMMATURE GRANULOCYTES (test code = 1036) 0.4 % NUCLEATED RBCS (test code = 1065) 0.0 /100WBC'S PLATELET COUNT (test code = 1015) 225 K/UL ABSOLUTE NEUTROPHILS (test c ode = 1066) 3.61 K/UL ABSOLUTE LYMPHOCYTES (test c ode = 1067) 1.11 K/UL ABSOLUTE MONOCYTES (test cod e = 1068) 0.36 K/UL ABSOLUTE EOSINOPHILS (test c ode = 1040) 0.07 K/UL ABSOLUTE BASOPHILS (test cod e = 1069) 0.03 K/UL ABS IMMATURE GRANULOCYTES (t est code = 1020) 0.02 K/UL ABS NUCLEATED RBCS (test cod e = 85190) 0.00 K/UL Ervin Magallon DirkLIPID [id number] 00:00:00* Test Item Value Reference Range Interpretation Comme nts CHOLESTEROL (test code = 2210) 171 MG/DL TRIGLYCERIDES (test code = 2232) 86 MG/DL HDL CHOLESTEROL (test code = 2220) 57 MG/DL CALC LDL CHOL (test code = 2237) 96 MG/DL RISK RATIO LDL/HDL (test cod e = 2238) 1.68 RATIO Ervin CavazosCOMPREHENSIVE METABOLIC [id number] 00:00:00* Test Item Value Reference Range Interpretation Comme nts GLUCOSE (test code = 2217) 91 MG/DL BUN (test code = 2208) 8 MG/DL CREATININE (test code = 2214) 0.65 MG/DL eGFR AMER. (test cod e = 87628) 106 ML/MIN/1.73 eGFR NON- AMER. (test code = 79415) 92 ML/MIN/1.73 CALC BUN/CREAT (test code = 2235) 12 RATIO SODIUM (test code = 2231) 142 MEQ/L POTASSIUM (test code = 2228) 4.2 MEQ/L CHLORIDE (test code = 2215) 103 MEQ/L CARBON DIOXIDE (test code = 2206) 27 MEQ/L CALCIUM (test code = 2209) 10.0 MG/DL PROTEIN, TOTAL (test code = 2229) 7.1 G/DL ALBUMIN (test code = 2201) 4.5 G/DL CALC GLOBULIN (test code = 2240) 2.6 G/DL CALC A/G RATIO (test code = 2234) 1.7 RATIO BILIRUBIN, TOTAL (test code = 2207) 0.4 MG/DL ALKALINE PHOSPHATASE (test code = 2204) 73 U/L AST (test code = 2218) 16 U/L ALT (test code = 2219) 10 U/L Ervin CavazosHEMOGLOBIN [id number] 00:00:00* Test Item Value Reference Range Interpretation Comme nts HEMOGLOBIN A1c (test code = 91694) 5.8 % Ervin CavazosVAGINAL PATHOGENS DNA [id number] 00:00:00* Test Item Value Reference Range Interpretation Comme nts SHYAM SPECIES (test code = 19345) NEGATIVE G. VAGINALIS (test code = 74127) NEGATIVE T. VAGINALIS (test code = 99612) NEGATIVE Ervin CavazosCBC W/AUTO [id number] 00:00:00* Test Item Value Reference Range Interpretation Comme nts WBC (test code = 1001) 5.2 K/UL RBC (test code = 1002) 4.15 M/UL HEMOGLOBIN (test code = 1003) 12.5 G/DL HEMATOCRIT (test code = 1004) 37.9 % MCV (test code = 1005) 91.3 fL MCH (test code = 1006) 30.1 PG MCHC (test code = 1007) 33.0 G/DL RDW (test code = 1038) 13.3 % NEUTROPHILS (test code = 1008) 69.5 % LYMPHOCYTES (test code = 1010) 21.3 % MONOCYTES (test code = 1011) 6.9 % EOSINOPHILS (test code = 1012) 1.3 % BASOPHILS (test code = 1013) 0.6 % IMMATURE GRANULOCYTES (test code = 1036) 0.4 % NUCLEATED RBCS (test code = 1065) 0.0 /100WBC'S PLATELET COUNT (test code = 1015) 225 K/UL ABSOLUTE NEUTROPHILS (test c ode = 1066) 3.61 K/UL ABSOLUTE LYMPHOCYTES (test c ode = 1067) 1.11 K/UL ABSOLUTE MONOCYTES (test cod e = 1068) 0.36 K/UL ABSOLUTE EOSINOPHILS (test c ode = 1040) 0.07 K/UL ABSOLUTE BASOPHILS (test cod e = 1069) 0.03 K/UL ABS IMMATURE GRANULOCYTES (t est code = 1020) 0.02 K/UL ABS NUCLEATED RBCS (test cod e = 98855) 0.00 K/UL Ervin Magallon AustinLIPID [id number] 00:00:00* Test Item Value Reference Range Interpretation Comme nts CHOLESTEROL (test code = 2210) 171 MG/DL TRIGLYCERIDES (test code = 2232) 86 MG/DL HDL CHOLESTEROL (test code = 2220) 57 MG/DL CALC LDL CHOL (test code = 2237) 96 MG/DL RISK RATIO LDL/HDL (test cod e = 2238) 1.68 RATIO Ervin CavazosCOMPREHENSIVE METABOLIC [id number] 00:00:00* Test Item Value Reference Range Interpretation Comme nts GLUCOSE (test code = 2217) 91 MG/DL BUN (test code = 2208) 8 MG/DL CREATININE (test code = 2214) 0.65 MG/DL eGFR AMER. (test cod e = 02446) 106 ML/MIN/1.73 eGFR NON- AMER. (test code = 34587) 92 ML/MIN/1.73 CALC BUN/CREAT (test code = 2235) 12 RATIO SODIUM (test code = 2231) 142 MEQ/L POTASSIUM (test code = 2228) 4.2 MEQ/L CHLORIDE (test code = 2215) 103 MEQ/L CARBON DIOXIDE (test code = 2206) 27 MEQ/L CALCIUM (test code = 2209) 10.0 MG/DL PROTEIN, TOTAL (test code = 2229) 7.1 G/DL ALBUMIN (test code = 2201) 4.5 G/DL CALC GLOBULIN (test code = 2240) 2.6 G/DL CALC A/G RATIO (test code = 2234) 1.7 RATIO BILIRUBIN, TOTAL (test code = 2207) 0.4 MG/DL ALKALINE PHOSPHATASE (test code = 2204) 73 U/L AST (test code = 2218) 16 U/L ALT (test code = 2219) 10 U/L Ervin CavazosHEMOGLOBIN [id number] 00:00:00* Test Item Value Reference Range Interpretation Comme nts HEMOGLOBIN A1c (test code = 43099) 5.8 % Ervin Magallon AustinVAGINAL PATHOGENS DNA [id number] 00:00:00* Test Item Value Reference Range Interpretation Comme nts SHYAM SPECIES (test code = ) NEGATIVE G. VAGINALIS (test code = ) NEGATIVE T. VAGINALIS (test code = ) NEGATIVE Ervin CavazosCBC W/AUTO [id number] 00:00:00* Test Item Value Reference Range Interpretation Comme nts WBC (test code = 1001) 5.2 K/UL RBC (test code = 1002) 4.15 M/UL HEMOGLOBIN (test code = 1003) 12.5 G/DL HEMATOCRIT (test code = 1004) 37.9 % MCV (test code = 1005) 91.3 fL MCH (test code = 1006) 30.1 PG MCHC (test code = 1007) 33.0 G/DL RDW (test code = 1038) 13.3 % NEUTROPHILS (test code = 1008) 69.5 % LYMPHOCYTES (test code = 1010) 21.3 % MONOCYTES (test code = 1011) 6.9 % EOSINOPHILS (test code = 1012) 1.3 % BASOPHILS (test code = 1013) 0.6 % IMMATURE GRANULOCYTES (test code = 1036) 0.4 % NUCLEATED RBCS (test code = 1065) 0.0 /100WBC'S PLATELET COUNT (test code = 1015) 225 K/UL ABSOLUTE NEUTROPHILS (test c ode = 1066) 3.61 K/UL ABSOLUTE LYMPHOCYTES (test c ode = 1067) 1.11 K/UL ABSOLUTE MONOCYTES (test cod e = 1068) 0.36 K/UL ABSOLUTE EOSINOPHILS (test c ode = 1040) 0.07 K/UL ABSOLUTE BASOPHILS (test cod e = 1069) 0.03 K/UL ABS IMMATURE GRANULOCYTES (t est code = 1020) 0.02 K/UL ABS NUCLEATED RBCS (test cod e = 46741) 0.00 K/UL Ervin CavazosLIPID [id number] 00:00:00* Test Item Value Reference Range Interpretation Comme nts CHOLESTEROL (test code = 2210) 171 MG/DL TRIGLYCERIDES (test code = 2232) 86 MG/DL HDL CHOLESTEROL (test code = 2220) 57 MG/DL CALC LDL CHOL (test code = 2237) 96 MG/DL RISK RATIO LDL/HDL (test cod e = 2238) 1.68 RATIO Ervin CavazosCOMPREHENSIVE METABOLIC [id number] 00:00:00* Test Item Value Reference Range Interpretation Comme nts GLUCOSE (test code = 2217) 91 MG/DL BUN (test code = 2208) 8 MG/DL CREATININE (test code = 2214) 0.65 MG/DL eGFR AMER. (test cod e = 19083) 106 ML/MIN/1.73 eGFR NON- AMER. (test code = 09316) 92 ML/MIN/1.73 CALC BUN/CREAT (test code = 2235) 12 RATIO SODIUM (test code = 2231) 142 MEQ/L POTASSIUM (test code = 2228) 4.2 MEQ/L CHLORIDE (test code = 2215) 103 MEQ/L CARBON DIOXIDE (test code = 2206) 27 MEQ/L CALCIUM (test code = 2209) 10.0 MG/DL PROTEIN, TOTAL (test code = 2229) 7.1 G/DL ALBUMIN (test code = 2201) 4.5 G/DL CALC GLOBULIN (test code = 2240) 2.6 G/DL CALC A/G RATIO (test code = 2234) 1.7 RATIO BILIRUBIN, TOTAL (test code = 2207) 0.4 MG/DL ALKALINE PHOSPHATASE (test code = 2204) 73 U/L AST (test code = 2218) 16 U/L ALT (test code = 2219) 10 U/L Ervin CavazosHEMOGLOBIN [id number] 00:00:00* Test Item Value Reference Range Interpretation Comme camilla HEMOGLOBIN A1c (test code = 66036) 5.8 % Ervin CavazosCBC W/AUTO [id number] 00:00:00* Test Item Value Reference Range Interpretation Comme camilla WBC (test code = 1001) 5.2 K/UL RBC (test code = 1002) 4.15 M/UL HEMOGLOBIN (test code = 1003) 12.5 G/DL HEMATOCRIT (test code = 1004) 37.9 % MCV (test code = 1005) 91.3 fL MCH (test code = 1006) 30.1 PG MCHC (test code = 1007) 33.0 G/DL RDW (test code = 1038) 13.3 % NEUTROPHILS (test code = 1008) 69.5 % LYMPHOCYTES (test code = 1010) 21.3 % MONOCYTES (test code = 1011) 6.9 % EOSINOPHILS (test code = 1012) 1.3 % BASOPHILS (test code = 1013) 0.6 % IMMATURE GRANULOCYTES (test code = 1036) 0.4 % NUCLEATED RBCS (test code = 1065) 0.0 /100WBC'S PLATELET COUNT (test code = 1015) 225 K/UL ABSOLUTE NEUTROPHILS (test c ode = 1066) 3.61 K/UL ABSOLUTE LYMPHOCYTES (test c ode = 1067) 1.11 K/UL ABSOLUTE MONOCYTES (test cod e = 1068) 0.36 K/UL ABSOLUTE EOSINOPHILS (test c ode = 1040) 0.07 K/UL ABSOLUTE BASOPHILS (test cod e = 1069) 0.03 K/UL ABS IMMATURE GRANULOCYTES (t est code = 1020) 0.02 K/UL ABS NUCLEATED RBCS (test cod e = 97088) 0.00 K/UL Ervin F AustinVAGINAL PATHOGENS DNA [id number] 00:00:00* Test Item Value Reference Range Interpretation Comme nts SHYAM SPECIES (test code = ) NEGATIVE G. VAGINALIS (test code = ) NEGATIVE T. VAGINALIS (test code = ) NEGATIVE Ervin F AustinLIPID [id number] 00:00:00* Test Item Value Reference Range Interpretation Comme nts CHOLESTEROL (test code = 2210) 171 MG/DL TRIGLYCERIDES (test code = 2232) 86 MG/DL HDL CHOLESTEROL (test code = 2220) 57 MG/DL CALC LDL CHOL (test code = 2237) 96 MG/DL RISK RATIO LDL/HDL (test cod e = 2238) 1.68 RATIO Ervin F AustinCOMPREHENSIVE METABOLIC [id number] 00:00:00* Test Item Value Reference Range Interpretation Comme nts GLUCOSE (test code = 2217) 91 MG/DL BUN (test code = 2208) 8 MG/DL CREATININE (test code = 2214) 0.65 MG/DL eGFR AMER. (test cod e = 13600) 106 ML/MIN/1.73 eGFR NON- AMER. (test code = 19453) 92 ML/MIN/1.73 CALC BUN/CREAT (test code = 2235) 12 RATIO SODIUM (test code = 2231) 142 MEQ/L POTASSIUM (test code = 2228) 4.2 MEQ/L CHLORIDE (test code = 2215) 103 MEQ/L CARBON DIOXIDE (test code = 2206) 27 MEQ/L CALCIUM (test code = 2209) 10.0 MG/DL PROTEIN, TOTAL (test code = 2229) 7.1 G/DL ALBUMIN (test code = 2201) 4.5 G/DL CALC GLOBULIN (test code = 2240) 2.6 G/DL CALC A/G RATIO (test code = 2234) 1.7 RATIO BILIRUBIN, TOTAL (test code = 2207) 0.4 MG/DL ALKALINE PHOSPHATASE (test code = 2203) 73 U/L AST (test code = 2218) 16 U/L ALT (test code = 2219) 10 U/L Ervin CavazosHEMOGLOBIN [id number] 00:00:00* Test Item Value Reference Range Interpretation Comme nts HEMOGLOBIN A1c (test code = 91677) 5.8 % Ervin CavazosVAGINAL PATHOGENS DNA [id number] 00:00:00* Test Item Value Reference Range Interpretation Comme nts SHYAM SPECIES (test code = 35473) NEGATIVE G. VAGINALIS (test code = ) NEGATIVE T. VAGINALIS (test code = 75090) NEGATIVE Ervin CavazosCBC W/AUTO [id number] 00:00:00* Test Item Value Reference Range Interpretation Comme nts WBC (test code = 1001) 5.2 K/UL RBC (test code = 1002) 4.15 M/UL HEMOGLOBIN (test code = 1003) 12.5 G/DL HEMATOCRIT (test code = 1004) 37.9 % MCV (test code = 1005) 91.3 fL MCH (test code = 1006) 30.1 PG MCHC (test code = 1007) 33.0 G/DL RDW (test code = 1038) 13.3 % NEUTROPHILS (test code = 1008) 69.5 % LYMPHOCYTES (test code = 1010) 21.3 % MONOCYTES (test code = 1011) 6.9 % EOSINOPHILS (test code = 1012) 1.3 % BASOPHILS (test code = 1013) 0.6 % IMMATURE GRANULOCYTES (test code = 1036) 0.4 % NUCLEATED RBCS (test code = 1065) 0.0 /100WBC'S PLATELET COUNT (test code = 1015) 225 K/UL ABSOLUTE NEUTROPHILS (test c ode = 1066) 3.61 K/UL ABSOLUTE LYMPHOCYTES (test c ode = 1067) 1.11 K/UL ABSOLUTE MONOCYTES (test cod e = 1068) 0.36 K/UL ABSOLUTE EOSINOPHILS (test c ode = 1040) 0.07 K/UL ABSOLUTE BASOPHILS (test cod e = 1069) 0.03 K/UL ABS IMMATURE GRANULOCYTES (t est code = 1020) 0.02 K/UL ABS NUCLEATED RBCS (test cod e = 59488) 0.00 K/UL Ervin CavazosLIPID [id number] 00:00:00* Test Item Value Reference Range Interpretation Comme nts CHOLESTEROL (test code = 2210) 171 MG/DL TRIGLYCERIDES (test code = 2232) 86 MG/DL HDL CHOLESTEROL (test code = 2220) 57 MG/DL CALC LDL CHOL (test code = 2237) 96 MG/DL RISK RATIO LDL/HDL (test cod e = 2238) 1.68 RATIO Ervin CavazosCOMPREHENSIVE METABOLIC [id number] 00:00:00* Test Item Value Reference Range Interpretation Comme nts GLUCOSE (test code = 2217) 91 MG/DL BUN (test code = 2208) 8 MG/DL CREATININE (test code = 2214) 0.65 MG/DL eGFR AMER. (test cod e = 21801) 106 ML/MIN/1.73 eGFR NON- AMER. (test code = 41526) 92 ML/MIN/1.73 CALC BUN/CREAT (test code = 2235) 12 RATIO SODIUM (test code = 2231) 142 MEQ/L POTASSIUM (test code = 2228) 4.2 MEQ/L CHLORIDE (test code = 2215) 103 MEQ/L CARBON DIOXIDE (test code = 2206) 27 MEQ/L CALCIUM (test code = 2209) 10.0 MG/DL PROTEIN, TOTAL (test code = 2229) 7.1 G/DL ALBUMIN (test code = 2201) 4.5 G/DL CALC GLOBULIN (test code = 2240) 2.6 G/DL CALC A/G RATIO (test code = 2234) 1.7 RATIO BILIRUBIN, TOTAL (test code = 2207) 0.4 MG/DL ALKALINE PHOSPHATASE (test code = 2204) 73 U/L AST (test code = 2218) 16 U/L ALT (test code = 2219) 10 U/L Ervin CavazosHEMOGLOBIN [id number] 00:00:00* Test Item Value Reference Range Interpretation Comme nts HEMOGLOBIN A1c (test code = 44376) 5.8 % Ervin CavazosVAGINAL PATHOGENS DNA [id number] 00:00:00* Test Item Value Reference Range Interpretation Comme nts SHYAM SPECIES (test code = ) NEGATIVE G. VAGINALIS (test code = ) NEGATIVE T. VAGINALIS (test code = ) NEGATIVE Ervin CavazosCBC W/AUTO [id number] 00:00:00* Test Item Value Reference Range Interpretation Comme nts WBC (test code = 1001) 5.2 K/UL RBC (test code = 1002) 4.15 M/UL HEMOGLOBIN (test code = 1003) 12.5 G/DL HEMATOCRIT (test code = 1004) 37.9 % MCV (test code = 1005) 91.3 fL MCH (test code = 1006) 30.1 PG MCHC (test code = 1007) 33.0 G/DL RDW (test code = 1038) 13.3 % NEUTROPHILS (test code = 1008) 69.5 % LYMPHOCYTES (test code = 1010) 21.3 % MONOCYTES (test code = 1011) 6.9 % EOSINOPHILS (test code = 1012) 1.3 % BASOPHILS (test code = 1013) 0.6 % IMMATURE GRANULOCYTES (test code = 1036) 0.4 % NUCLEATED RBCS (test code = 1065) 0.0 /100WBC'S PLATELET COUNT (test code = 1015) 225 K/UL ABSOLUTE NEUTROPHILS (test c ode = 1066) 3.61 K/UL ABSOLUTE LYMPHOCYTES (test c ode = 1067) 1.11 K/UL ABSOLUTE MONOCYTES (test cod e = 1068) 0.36 K/UL ABSOLUTE EOSINOPHILS (test c ode = 1040) 0.07 K/UL ABSOLUTE BASOPHILS (test cod e = 1069) 0.03 K/UL ABS IMMATURE GRANULOCYTES (t est code = 1020) 0.02 K/UL ABS NUCLEATED RBCS (test cod e = 46094) 0.00 K/UL Ervin CavazosLIPID [id number] 00:00:00* Test Item Value Reference Range Interpretation Comme nts CHOLESTEROL (test code = 2210) 171 MG/DL TRIGLYCERIDES (test code = 2232) 86 MG/DL HDL CHOLESTEROL (test code = 2220) 57 MG/DL CALC LDL CHOL (test code = 2237) 96 MG/DL RISK RATIO LDL/HDL (test cod e = 2238) 1.68 RATIO Ervin CavazosTSH + FREE T4 [id number] 00:00:00* Test Item Value Reference Range Interpretation Comme nts TSH, THIRD GENERATION (test code = 2821) 1.360 UIU/ML FREE T4 (THYROXINE) (test co de = 2823) 0.98 NG/DL Ervin CavazosTSH + FREE T4 [id number] 00:00:00* Test Item Value Reference Range Interpretation Comme nts TSH, THIRD GENERATION (test code = 2821) 1.360 UIU/ML FREE T4 (THYROXINE) (test co de = 2823) 0.98 NG/DL Ervin CavazosTSH + FREE T4 [id number] 00:00:00* Test Item Value Reference Range Interpretation Comme nts TSH, THIRD GENERATION (test code = 2821) 1.360 UIU/ML FREE T4 (THYROXINE) (test co de = 2823) 0.98 NG/DL Ervin CavazosTSH + FREE T4 [id number] 00:00:00* Test Item Value Reference Range Interpretation Comme nts TSH, THIRD GENERATION (test code = 2821) 1.360 UIU/ML FREE T4 (THYROXINE) (test co de = 2823) 0.98 NG/DL Ervin CavazosTSH + FREE T4 [id number] 00:00:00* Test Item Value Reference Range Interpretation Comme nts TSH, THIRD GENERATION (test code = 2821) 1.360 UIU/ML FREE T4 (THYROXINE) (test co de = 2823) 0.98 NG/DL Ervin CavazosTSH + FREE T4 [id number] 00:00:00* Test Item Value Reference Range Interpretation Comme nts TSH, THIRD GENERATION (test code = 2821) 1.360 UIU/ML FREE T4 (THYROXINE) (test co de = 2823) 0.98 NG/DL Ervin aCvazosTSH + FREE T4 [id number] 00:00:00* Test Item Value Reference Range Interpretation Comme nts TSH, THIRD GENERATION (test code = 2821) 1.360 UIU/ML FREE T4 (THYROXINE) (test co de = 2823) 0.98 NG/DL Ervin Magallon AustinTSH + FREE T4 [id number] 00:00:00* Test Item Value Reference Range Interpretation Comme nts TSH, THIRD GENERATION (test code = 2821) 1.360 UIU/ML FREE T4 (THYROXINE) (test co de = 2823) 0.98 NG/DL Ervin Magallon AustinTSH + FREE T4 [id number] 00:00:00* Test Item Value Reference Range Interpretation Comme nts TSH, THIRD GENERATION (test code = 2821) 1.360 UIU/ML FREE T4 (THYROXINE) (test co de = 2823) 0.98 NG/DL Ervin Cavazos- US ABDOMEN [id number] 11:41:00Name: FARZANEH STRATTON [facility] : 1955 Age/S: 64 / F [id number] Unit #: [id number] Loc: [place] [address] Phys: Zion Blandon MD Acct: [id number] Dis Date: Status: REG CLI PHONE #: [phone] Exam Date: 12/31/2019 0989 FAX #: Reason: GENERALIZED ABDOMINAL PAIN EXAMS: CPT: [id number] US ABDOMEN COMPLETE [id number] EXAMINATION: - US ABDOMEN COMPLETE. LOCATION: S17. HISTORY: Generalized abdominal pain, epigastric pain. COMPARISON: None. TECHNIQUE: Examination of the liver, spleen, kidneys, pancreas, gallbladder, bile ducts, aorta and inferior vena cava was performed. FINDINGS: The visualized liver parenchyma is homogeneous in echogenicity. The main portal vein is patent. There is no intra or extrahepatic biliary ductal dilatation. The common duct measures 7 mm. The gallbladder demonstrates innumerable calculi with gallbladder wall prominence at 3-4 mm.The visualized pancreatic head and body appears unremarkable, evaluation of the tail is limited by overlying bowel gas. Spleen is unremarkable in size. The right and partially visualized left kidney measure 10.6 cm and 10.1 cm respectively. There is no hydronephrosis. The visualized portions of abdominal aorta demonstrates atherosclerosis. IVC appear unremarkable. IMPRESSION: Cholelithiasis withgallbladder wall prominence at 3-4 mm, may represent chronic cholecystitis in the appropriate clinical setting. Borderline CBD at 7 mm, correlate with LFTs. at 1141 Reported and signed by: Nitza Alvarez M.D. PAGE 1 Signed Report (CONTINUED) Name: FARZANEH STRATTON [facility] : 1955 Age/S: 64 / [id number] Unit #: [id number] Loc: [place] [address] Phys: Zion Blandon MD Acct: [id number] Dis Date: Status: REG CLI PHONE #: [phone] Exam Date: 12/31/2019 0930 FAX #: Reason:GENERALIZED ABDOMINAL PAIN EXAMS: CPT: [id number] US ABDOMEN COMPLETE 97764 (Continued) CC: Zion Blandon MD; Ervin Marie MD Technologist: Silvia Marroquin, RT(R),RDMS(AB) Trnksb Date/Time: 12/31/2019 (1141) [email or web address] PAGE 2 Signed Report Name: FARZANEH STRATTON [facility] :1955 Age/S: 64 / F [id number] [address] Unit #: [id number] Loc: [place] [address] Phys: Zion Blandon MD Acct: [id number] Dis Date: Status: REG CLI PHONE #: [phone] Exam Date: 12/31/2019 0930 FAX #: Reason: GENERALIZED ABDOMINAL PAIN EXAMS: CPT: [id number] US ABDOMEN COMPLETE 80700 (Continued) Orig Print D/T: S: 12/31/2019 (1145) Probe: PAGE 3 Signed Report CULTURE, URINE [ADDED]2019-10-28 00:00:00* Test Item Value Reference Range Interpretation Comme nts CULTURE, URINE (test code = 24652) SPECIMEN NUMBER: [id number] Ervin Magallon AustinCULTURE, URINE [ADDED]2019-10-28 00:00:00* Test Item Value Reference Range Interpretation Comme nts CULTURE, URINE (test code = 41175) SPECIMEN NUMBER: [id number] Ervin CavazosCULTURE, URINE [ADDED]2019-10-28 00:00:00* Test Item Value Reference Range Interpretation Comme nts CULTURE, URINE (test code = 52804) SPECIMEN NUMBER: [id number] Ervin CavazosCULTURE, URINE [ADDED]2019-10-28 00:00:00* Test Item Value Reference Range Interpretation Comme nts CULTURE, URINE (test code = 95539) SPECIMEN NUMBER: [id number] Ervin CavazosCULTURE, URINE [ADDED]2019-10-28 00:00:00* Test Item Value Reference Range Interpretation Comme nts CULTURE, URINE (test code = 40471) SPECIMEN NUMBER: [id number] Ervin CavazosCULTURE, URINE [ADDED]2019-10-28 00:00:00* Test Item Value Reference Range Interpretation Comme nts CULTURE, URINE (test code = 63687) SPECIMEN NUMBER: [id number] Ervin CavazosCULTURE, URINE [ADDED]2019-10-28 00:00:00* Test Item Value Reference Range Interpretation Comme nts CULTURE, URINE (test code = 58203) SPECIMEN NUMBER: [id number] Ervin CavazosCULTURE, URINE [ADDED]2019-10-28 00:00:00* Test Item Value Reference Range Interpretation Comme nts CULTURE, URINE (test code = 76682) SPECIMEN NUMBER: [id number] Ervin CavazosCULTURE, URINE [ADDED]2019-10-28 00:00:00* Test Item Value Reference Range Interpretation Comme nts CULTURE, URINE (test code = 30593) SPECIMEN NUMBER: [id number] Ervin Magallon AustinCULTURE, URINE [ADDED]2019-09-29 00:00:00* Test Item Value Reference Range Interpretation Comme nts CULTURE, URINE (test code = 63517) SPECIMEN NUMBER: [id number] Ervin CavazosCULTURE, URINE [ADDED]2019-09-29 00:00:00* Test Item Value Reference Range Interpretation Comme nts CULTURE, URINE (test code = 41771) SPECIMEN NUMBER: [id number] Ervin Magallon AustinCULTURE, URINE [ADDED]2019-09-29 00:00:00* Test Item Value Reference Range Interpretation Comme nts CULTURE, URINE (test code = 96462) SPECIMEN NUMBER: [id number] Ervin CavazosCULTURE, URINE [ADDED]2019-09-29 00:00:00* Test Item Value Reference Range Interpretation Comme nts CULTURE, URINE (test code = 63076) SPECIMEN NUMBER: [id number] Ervin CavazosCULTURE, URINE [ADDED]2019-09-29 00:00:00* Test Item Value Reference Range Interpretation Comme nts CULTURE, URINE (test code = 66008) SPECIMEN NUMBER: [id number] Ervin CavazosCULTURE, URINE [ADDED]2019-09-29 00:00:00* Test Item Value Reference Range Interpretation Comme nts CULTURE, URINE (test code = 66513) SPECIMEN NUMBER: [id number] Ervin CavazosCULTURE, URINE [ADDED]2019-09-29 00:00:00* Test Item Value Reference Range Interpretation Comme nts CULTURE, URINE (test code = 11481) SPECIMEN NUMBER: [id number] Ervin CavazosCULTURE, URINE [ADDED]2019-09-29 00:00:00* Test Item Value Reference Range Interpretation Comme nts CULTURE, URINE (test code = 91135) SPECIMEN NUMBER: [id number] Ervin CavazosCULTURE, URINE [ADDED]2019-09-29 00:00:00* Test Item Value Reference Range Interpretation Comme nts CULTURE, URINE (test code = 87661) SPECIMEN NUMBER: [id number] Ervin CavazosHEMOGLOBIN A1c [ADDED]2019-09-27 00:00:00* Test Item Value Reference Range Interpretation Comme nts HEMOGLOBIN A1c (test code = 34556) 5.9 % Ervin CavazosTSH, THIRD GENERATION [ADDED]2019-09-27 00:00:00* Test Item Value Reference Range Interpretation Comme nts TSH, THIRD GENERATION (test code = 2821) 3.380 UIU/ML Ervin CavazosHEMOGLOBIN A1c [ADDED]2019-09-27 00:00:00* Test Item Value Reference Range Interpretation Comme nts HEMOGLOBIN A1c (test code = 78529) 5.9 % Ervin CavazosTSH, THIRD GENERATION [ADDED]2019-09-27 00:00:00* Test Item Value Reference Range Interpretation Comme nts TSH, THIRD GENERATION (test code = 2821) 3.380 UIU/ML Ervin Magallon AustinHEMOGLOBIN A1c [ADDED]2019-09-27 00:00:00* Test Item Value Reference Range Interpretation Comme nts HEMOGLOBIN A1c (test code = 21749) 5.9 % Ervin Cha, THIRD GENERATION [ADDED]2019-09-27 00:00:00* Test Item Value Reference Range Interpretation Comme nts TSH, THIRD GENERATION (test code = 2821) 3.380 UIU/ML Ervin Magallon AustinHEMOGLOBIN A1c [ADDED]2019-09-27 00:00:00* Test Item Value Reference Range Interpretation Comme nts HEMOGLOBIN A1c (test code = 35149) 5.9 % Ervin FelixH, THIRD GENERATION [ADDED]2019-09-27 00:00:00* Test Item Value Reference Range Interpretation Comme nts TSH, THIRD GENERATION (test code = 2821) 3.380 UIU/ML Ervin Magallon AustinHEMOGLOBIN A1c [ADDED]2019-09-27 00:00:00* Test Item Value Reference Range Interpretation Comme nts HEMOGLOBIN A1c (test code = 70540) 5.9 % Ervin FelixH, THIRD GENERATION [ADDED]2019-09-27 00:00:00* Test Item Value Reference Range Interpretation Comme nts TSH, THIRD GENERATION (test code = 2821) 3.380 UIU/ML Ervin Naun AustinHEMOGLOBIN A1c [ADDED]2019-09-27 00:00:00* Test Item Value Reference Range Interpretation Comme nts HEMOGLOBIN A1c (test code = 80369) 5.9 % Ervin FelixH, THIRD GENERATION [ADDED]2019-09-27 00:00:00* Test Item Value Reference Range Interpretation Comme nts TSH, THIRD GENERATION (test code = 2821) 3.380 UIU/ML Ervin F AustinHEMOGLOBIN A1c [ADDED]2019-09-27 00:00:00* Test Item Value Reference Range Interpretation Comme nts HEMOGLOBIN A1c (test code = 14825) 5.9 % Ervin FeilxH, THIRD GENERATION [ADDED]2019-09-27 00:00:00* Test Item Value Reference Range Interpretation Comme nts TSH, THIRD GENERATION (test code = 2821) 3.380 UIU/ML Ervin F AustinHEMOGLOBIN A1c [ADDED]2019-09-27 00:00:00* Test Item Value Reference Range Interpretation Comme nts HEMOGLOBIN A1c (test code = 26579) 5.9 % Ervin Cha, THIRD GENERATION [ADDED]2019-09-27 00:00:00* Test Item Value Reference Range Interpretation Comme nts TSH, THIRD GENERATION (test code = 2821) 3.380 UIU/ML Ervin CavazosHEMOGLOBIN A1c [ADDED]2019-09-27 00:00:00* Test Item Value Reference Range Interpretation Comme nts HEMOGLOBIN A1c (test code = 25371) 5.9 % Ervin Cha, THIRD GENERATION [ADDED]2019-09-27 00:00:00* Test Item Value Reference Range Interpretation Comme nts TSH, THIRD GENERATION (test code = 2821) 3.380 UIU/ML Ervin Saravia, [id number] 00:00:00* Test Item Value Reference Range Interpretation Comme nts CULTURE, URINE (test code = 29698) SPECIMEN NUMBER: [id number] Ervin Saravia, [id number] 00:00:00* Test Item Value Reference Range Interpretation Comme nts CULTURE, URINE (test code = 79993) SPECIMEN NUMBER: [id number] Ervin Saravia, [id number] 00:00:00* Test Item Value Reference Range Interpretation Comme nts CULTURE, URINE (test code = 46320) SPECIMEN NUMBER: [id number] Ervin Saravia, [id number] 00:00:00* Test Item Value Reference Range Interpretation Comme nts CULTURE, URINE (test code = 70319) SPECIMEN NUMBER: [id number] Ervin Saravia, [id number] 00:00:00* Test Item Value Reference Range Interpretation Comme nts CULTURE, URINE (test code = 97377) SPECIMEN NUMBER: [id number] Ervin Saravia, [id number] 00:00:00* Test Item Value Reference Range Interpretation Comme nts CULTURE, URINE (test code = 75231) SPECIMEN NUMBER: [id number] Ervin Saravia, [id number] 00:00:00* Test Item Value Reference Range Interpretation Comme nts CULTURE, URINE (test code = 19208) SPECIMEN NUMBER: [id number] Ervin CavazosCULTURE, [id number] 00:00:00* Test Item Value Reference Range Interpretation Comme nts CULTURE, URINE (test code = 58713) SPECIMEN NUMBER: [id number] Ervin CavazosCULTURE, [id number] 00:00:00* Test Item Value Reference Range Interpretation Comme nts CULTURE, URINE (test code = 03159) SPECIMEN NUMBER: [id number] Ervin Magallon AustinVAGINAL PATHOGENS DNA [id number] 00:00:00* Test Item Value Reference Range Interpretation Comme nts SHYAM SPECIES (test code = ) POSITIVE G. VAGINALIS (test code = 98025) NEGATIVE T. VAGINALIS (test code = 65484) NEGATIVE Ervin Magallon AustinVAGINAL PATHOGENS DNA [id number] 00:00:00* Test Item Value Reference Range Interpretation Comme nts SHYAM SPECIES (test code = 70503) POSITIVE G. VAGINALIS (test code = 97309) NEGATIVE T. VAGINALIS (test code = 82635) NEGATIVE Ervin Magallon AustinVAGINAL PATHOGENS DNA [id number] 00:00:00* Test Item Value Reference Range Interpretation Comme nts SHYAM SPECIES (test code = 77704) POSITIVE G. VAGINALIS (test code = 65405) NEGATIVE T. VAGINALIS (test code = 11857) NEGATIVE Ervin Magallon AustinVAGINAL PATHOGENS DNA [id number] 00:00:00* Test Item Value Reference Range Interpretation Comme nts SHYAM SPECIES (test code = 91026) POSITIVE G. VAGINALIS (test code = 21199) NEGATIVE T. VAGINALIS (test code = 68933) NEGATIVE Ervin Magallon AustinVAGINAL PATHOGENS DNA [id number] 00:00:00* Test Item Value Reference Range Interpretation Comme nts SHYAM SPECIES (test code = 60426) POSITIVE G. VAGINALIS (test code = 66302) NEGATIVE T. VAGINALIS (test code = 27758) NEGATIVE Ervin Magallon AustinVAGINAL PATHOGENS DNA [id number] 00:00:00* Test Item Value Reference Range Interpretation Comme nts SHYAM SPECIES (test code = 40080) POSITIVE G. VAGINALIS (test code = 70222) NEGATIVE T. VAGINALIS (test code = 55003) NEGATIVE Ervin Magallon AustinVAGINAL PATHOGENS DNA [id number] 00:00:00* Test Item Value Reference Range Interpretation Comme nts SHYAM SPECIES (test code = ) POSITIVE G. VAGINALIS (test code = 26987) NEGATIVE T. VAGINALIS (test code = 82203) NEGATIVE Ervin Magallon AustinVAGINAL PATHOGENS DNA [id number] 00:00:00* Test Item Value Reference Range Interpretation Comme nts SHYAM SPECIES (test code = 72249) POSITIVE G. VAGINALIS (test code = 56714) NEGATIVE T. VAGINALIS (test code = 91489) NEGATIVE Ervin Magallon AustinVAGINAL PATHOGENS DNA [id number] 00:00:00* Test Item Value Reference Range Interpretation Comme nts SHYAM SPECIES (test code = ) POSITIVE G. VAGINALIS (test code = 79900) NEGATIVE T. VAGINALIS (test code = 78688) NEGATIVE Ervin Magallon AustinH. PYLORI (BREATH)2019-07-10 00:00:00* Test Item Value Reference Range Interpretation Comme nts H. PYLORI (BREATH) (test cod e = 69660) NEGATIVE Ervin Magallon AustinH. PYLORI (BREATH)2019-07-10 00:00:00* Test Item Value Reference Range Interpretation Comme nts H. PYLORI (BREATH) (test cod e = 02377) NEGATIVE Ervin F AustinH. PYLORI (BREATH)2019-07-10 00:00:00* Test Item Value Reference Range Interpretation Comme nts H. PYLORI (BREATH) (test cod e = 39059) NEGATIVE Ervin F AustinH. PYLORI (BREATH)2019-07-10 00:00:00* Test Item Value Reference Range Interpretation Comme nts H. PYLORI (BREATH) (test cod e = 93602) NEGATIVE Ervin F AustinH. PYLORI (BREATH)2019-07-10 00:00:00* Test Item Value Reference Range Interpretation Comme nts H. PYLORI (BREATH) (test cod e = 05586) NEGATIVE Ervin F AustinH. PYLORI (BREATH)2019-07-10 00:00:00* Test Item Value Reference Range Interpretation Comme nts H. PYLORI (BREATH) (test cod e = 28505) NEGATIVE Ervin F AustinH. PYLORI (BREATH)2019-07-10 00:00:00* Test Item Value Reference Range Interpretation Comme nts H. PYLORI (BREATH) (test cod e = 93168) NEGATIVE Ervin Magallon AustinH. PYLORI (BREATH)2019-07-10 00:00:00* Test Item Value Reference Range Interpretation Comme nts H. PYLORI (BREATH) (test cod e = 22110) NEGATIVE Ervin Magallon AustinH. PYLORI (BREATH)2019-07-10 00:00:00* Test Item Value Reference Range Interpretation Comme nts H. PYLORI (BREATH) (test cod e = 78746) NEGATIVE Ervin CavazosCOMPREHENSIVE METABOLIC [id number] 00:00:00* Test Item Value Reference Range Interpretation Comme nts GLUCOSE (test code = 2217) 97 MG/DL BUN (test code = 2208) 13 MG/DL CREATININE (test code = 2214) 0.66 MG/DL eGFR AMER. (test cod e = 10779) 107 ML/MIN/1.73 eGFR NON- AMER. (test code = 06173) 93 ML/MIN/1.73 CALC BUN/CREAT (test code = 2235) 20 RATIO SODIUM (test code = 2231) 138 MEQ/L POTASSIUM (test code = 2228) 4.3 MEQ/L CHLORIDE (test code = 2215) 99 MEQ/L CARBON DIOXIDE (test code = 2206) 27 MEQ/L CALCIUM (test code = 2209) 9.2 MG/DL PROTEIN, TOTAL (test code = 2229) 7.2 G/DL ALBUMIN (test code = 2201) 4.7 G/DL CALC GLOBULIN (test code = 2240) 2.5 G/DL CALC A/G RATIO (test code = 2234) 1.9 RATIO BILIRUBIN, TOTAL (test code = 2207) 0.2 MG/DL ALKALINE PHOSPHATASE (test code = 2204) 95 U/L AST (test code = 2218) 22 U/L ALT (test code = 2219) 15 U/L Ervin Magallon AustinLIPID [id number] 00:00:00* Test Item Value Reference Range Interpretation Comme nts CHOLESTEROL (test code = 2210) 202 MG/DL TRIGLYCERIDES (test code = 2232) 73 MG/DL HDL CHOLESTEROL (test code = 2220) 68 MG/DL CALC LDL CHOL (test code = 2237) 119 MG/DL RISK RATIO LDL/HDL (test cod e = 2238) 1.76 RATIO Ervin CavazosTHYROID II PROFILE (T3U, T4, T7, TSH)2019-03-15 00:00:00* Test Item Value Reference Range Interpretation Comme nts T-UPTAKE (test code = 2817) 27.2 % THYROX. BIND. CAPAC. (test c ode = 62006) 1.2 T4 (THYROXINE) (test code = 2819) 6.2 UG/DL CORRECTED T4 (FTI) (test cod e = 2820) 5.2 UG/DL TSH, THIRD GENERATION (test code = 2821) 2.830 UIU/ML Ervin CavazosHEMOGLOBIN [id number] 00:00:00* Test Item Value Reference Range Interpretation Comme camilla HEMOGLOBIN A1c (test code = 99225) 5.7 % Ervin CavazosCBC W/AUTO [id number] 00:00:00* Test Item Value Reference Range Interpretation Comme nts WBC (test code = 1001) 4.8 K/UL RBC (test code = 1002) 4.18 M/UL HEMOGLOBIN (test code = 1003) 12.7 G/DL HEMATOCRIT (test code = 1004) 37.3 % MCV (test code = 1005) 89.2 fL MCH (test code = 1006) 30.4 PG MCHC (test code = 1007) 34.0 G/DL RDW (test code = 1038) 12.8 % NEUTROPHILS (test code = 1008) 51.1 % LYMPHOCYTES (test code = 1010) 37.8 % MONOCYTES (test code = 1011) 8.4 % EOSINOPHILS (test code = 1012) 1.9 % BASOPHILS (test code = 1013) 0.8 % PLATELET COUNT (test code = 1015) 246 K/UL Ervin CavazosCOMPREHENSIVE METABOLIC [id number] 00:00:00* Test Item Value Reference Range Interpretation Comme nts GLUCOSE (test code = 2217) 97 MG/DL BUN (test code = 2208) 13 MG/DL CREATININE (test code = 2214) 0.66 MG/DL eGFR AMER. (test cod e = 16499) 107 ML/MIN/1.73 eGFR NON- AMER. (test code = 20243) 93 ML/MIN/1.73 CALC BUN/CREAT (test code = 2235) 20 RATIO SODIUM (test code = 2231) 138 MEQ/L POTASSIUM (test code = 2228) 4.3 MEQ/L CHLORIDE (test code = 2215) 99 MEQ/L CARBON DIOXIDE (test code = 2206) 27 MEQ/L CALCIUM (test code = 2209) 9.2 MG/DL PROTEIN, TOTAL (test code = 2229) 7.2 G/DL ALBUMIN (test code = 2201) 4.7 G/DL CALC GLOBULIN (test code = 2240) 2.5 G/DL CALC A/G RATIO (test code = 2234) 1.9 RATIO BILIRUBIN, TOTAL (test code = 2207) 0.2 MG/DL ALKALINE PHOSPHATASE (test code = 2204) 95 U/L AST (test code = 2218) 22 U/L ALT (test code = 2219) 15 U/L Ervin Magallon DirkLIPID [id number] 00:00:00* Test Item Value Reference Range Interpretation Comme nts CHOLESTEROL (test code = 2210) 202 MG/DL TRIGLYCERIDES (test code = 2232) 73 MG/DL HDL CHOLESTEROL (test code = 2220) 68 MG/DL CALC LDL CHOL (test code = 2237) 119 MG/DL RISK RATIO LDL/HDL (test cod e = 2238) 1.76 RATIO Ervin Naun DirkTHYROID II PROFILE (T3U, T4, T7, TSH)2019-03-15 00:00:00* Test Item Value Reference Range Interpretation Comme nts T-UPTAKE (test code = 2817) 27.2 % THYROX. BIND. CAPAC. (test c ode = 55597) 1.2 T4 (THYROXINE) (test code = 2819) 6.2 UG/DL CORRECTED T4 (FTI) (test cod e = 2820) 5.2 UG/DL TSH, THIRD GENERATION (test code = 2821) 2.830 UIU/ML Ervin Naun DirkHEMOGLOBIN [id number] 00:00:00* Test Item Value Reference Range Interpretation Comme nts HEMOGLOBIN A1c (test code = 49745) 5.7 % Ervin CavazosCBC W/AUTO [id number] 00:00:00* Test Item Value Reference Range Interpretation Comme nts WBC (test code = 1001) 4.8 K/UL RBC (test code = 1002) 4.18 M/UL HEMOGLOBIN (test code = 1003) 12.7 G/DL HEMATOCRIT (test code = 1004) 37.3 % MCV (test code = 1005) 89.2 fL MCH (test code = 1006) 30.4 PG MCHC (test code = 1007) 34.0 G/DL RDW (test code = 1038) 12.8 % NEUTROPHILS (test code = 1008) 51.1 % LYMPHOCYTES (test code = 1010) 37.8 % MONOCYTES (test code = 1011) 8.4 % EOSINOPHILS (test code = 1012) 1.9 % BASOPHILS (test code = 1013) 0.8 % PLATELET COUNT (test code = 1015) 246 K/UL Ervin CavazosCOMPREHENSIVE METABOLIC [id number] 00:00:00* Test Item Value Reference Range Interpretation Comme nts GLUCOSE (test code = 2217) 97 MG/DL BUN (test code = 2208) 13 MG/DL CREATININE (test code = 2214) 0.66 MG/DL eGFR AMER. (test cod e = 28428) 107 ML/MIN/1.73 eGFR NON- AMER. (test code = 77266) 93 ML/MIN/1.73 CALC BUN/CREAT (test code = 2235) 20 RATIO SODIUM (test code = 2231) 138 MEQ/L POTASSIUM (test code = 2228) 4.3 MEQ/L CHLORIDE (test code = 2215) 99 MEQ/L CARBON DIOXIDE (test code = 2206) 27 MEQ/L CALCIUM (test code = 2209) 9.2 MG/DL PROTEIN, TOTAL (test code = 2229) 7.2 G/DL ALBUMIN (test code = 2201) 4.7 G/DL CALC GLOBULIN (test code = 2240) 2.5 G/DL CALC A/G RATIO (test code = 2234) 1.9 RATIO BILIRUBIN, TOTAL (test code = 2207) 0.2 MG/DL ALKALINE PHOSPHATASE (test code = 2204) 95 U/L AST (test code = 2218) 22 U/L ALT (test code = 2219) 15 U/L Ervin CavazosLIPID [id number] 00:00:00* Test Item Value Reference Range Interpretation Comme nts CHOLESTEROL (test code = 2210) 202 MG/DL TRIGLYCERIDES (test code = 2232) 73 MG/DL HDL CHOLESTEROL (test code = 2220) 68 MG/DL CALC LDL CHOL (test code = 2237) 119 MG/DL RISK RATIO LDL/HDL (test cod e = 2238) 1.76 RATIO Ervin CavazosTHYROID II PROFILE (T3U, T4, T7, TSH)2019-03-15 00:00:00* Test Item Value Reference Range Interpretation Comme nts T-UPTAKE (test code = 2817) 27.2 % THYROX. BIND. CAPAC. (test c ode = 76319) 1.2 T4 (THYROXINE) (test code = 2819) 6.2 UG/DL CORRECTED T4 (FTI) (test cod e = 2820) 5.2 UG/DL TSH, THIRD GENERATION (test code = 2821) 2.830 UIU/ML Ervin CavazosHEMOGLOBIN [id number] 00:00:00* Test Item Value Reference Range Interpretation Comme camilla HEMOGLOBIN A1c (test code = 48516) 5.7 % Ervin Magallon DirkCBC W/AUTO [id number] 00:00:00* Test Item Value Reference Range Interpretation Comme nts WBC (test code = 1001) 4.8 K/UL RBC (test code = 1002) 4.18 M/UL HEMOGLOBIN (test code = 1003) 12.7 G/DL HEMATOCRIT (test code = 1004) 37.3 % MCV (test code = 1005) 89.2 fL MCH (test code = 1006) 30.4 PG MCHC (test code = 1007) 34.0 G/DL RDW (test code = 1038) 12.8 % NEUTROPHILS (test code = 1008) 51.1 % LYMPHOCYTES (test code = 1010) 37.8 % MONOCYTES (test code = 1011) 8.4 % EOSINOPHILS (test code = 1012) 1.9 % BASOPHILS (test code = 1013) 0.8 % PLATELET COUNT (test code = 1015) 246 K/UL Ervin Magallon DirkCOMPREHENSIVE METABOLIC [id number] 00:00:00* Test Item Value Reference Range Interpretation Comme nts GLUCOSE (test code = 2217) 97 MG/DL BUN (test code = 2208) 13 MG/DL CREATININE (test code = 2214) 0.66 MG/DL eGFR AMER. (test cod e = 38798) 107 ML/MIN/1.73 eGFR NON- AMER. (test code = 51401) 93 ML/MIN/1.73 CALC BUN/CREAT (test code = 2235) 20 RATIO SODIUM (test code = 2231) 138 MEQ/L POTASSIUM (test code = 2228) 4.3 MEQ/L CHLORIDE (test code = 2215) 99 MEQ/L CARBON DIOXIDE (test code = 2206) 27 MEQ/L CALCIUM (test code = 2209) 9.2 MG/DL PROTEIN, TOTAL (test code = 2229) 7.2 G/DL ALBUMIN (test code = 2201) 4.7 G/DL CALC GLOBULIN (test code = 2240) 2.5 G/DL CALC A/G RATIO (test code = 2234) 1.9 RATIO BILIRUBIN, TOTAL (test code = 2207) 0.2 MG/DL ALKALINE PHOSPHATASE (test code = 2204) 95 U/L AST (test code = 2218) 22 U/L ALT (test code = 2219) 15 U/L Ervin CavazosLIPID [id number] 00:00:00* Test Item Value Reference Range Interpretation Comme nts CHOLESTEROL (test code = 2210) 202 MG/DL TRIGLYCERIDES (test code = 2232) 73 MG/DL HDL CHOLESTEROL (test code = 2220) 68 MG/DL CALC LDL CHOL (test code = 2237) 119 MG/DL RISK RATIO LDL/HDL (test cod e = 2238) 1.76 RATIO Ervin CavazosTHYROID II PROFILE (T3U, T4, T7, TSH)2019-03-15 00:00:00* Test Item Value Reference Range Interpretation Comme nts T-UPTAKE (test code = 2817) 27.2 % THYROX. BIND. CAPAC. (test c ode = 10257) 1.2 T4 (THYROXINE) (test code = 2819) 6.2 UG/DL CORRECTED T4 (FTI) (test cod e = 2820) 5.2 UG/DL TSH, THIRD GENERATION (test code = 2821) 2.830 UIU/ML Ervin CavazosHEMOGLOBIN [id number] 00:00:00* Test Item Value Reference Range Interpretation Comme nts HEMOGLOBIN A1c (test code = 50969) 5.7 % Ervin CavazosCBC W/AUTO [id number] 00:00:00* Test Item Value Reference Range Interpretation Comme nts WBC (test code = 1001) 4.8 K/UL RBC (test code = 1002) 4.18 M/UL HEMOGLOBIN (test code = 1003) 12.7 G/DL HEMATOCRIT (test code = 1004) 37.3 % MCV (test code = 1005) 89.2 fL MCH (test code = 1006) 30.4 PG MCHC (test code = 1007) 34.0 G/DL RDW (test code = 1038) 12.8 % NEUTROPHILS (test code = 1008) 51.1 % LYMPHOCYTES (test code = 1010) 37.8 % MONOCYTES (test code = 1011) 8.4 % EOSINOPHILS (test code = 1012) 1.9 % BASOPHILS (test code = 1013) 0.8 % PLATELET COUNT (test code = 1015) 246 K/UL Ervin CavazosCOMPREHENSIVE METABOLIC [id number] 00:00:00* Test Item Value Reference Range Interpretation Comme nts GLUCOSE (test code = 2217) 97 MG/DL BUN (test code = 2208) 13 MG/DL CREATININE (test code = 2214) 0.66 MG/DL eGFR AMER. (test cod e = 50178) 107 ML/MIN/1.73 eGFR NON- AMER. (test code = 83226) 93 ML/MIN/1.73 CALC BUN/CREAT (test code = 2235) 20 RATIO SODIUM (test code = 2231) 138 MEQ/L POTASSIUM (test code = 2228) 4.3 MEQ/L CHLORIDE (test code = 2215) 99 MEQ/L CARBON DIOXIDE (test code = 2206) 27 MEQ/L CALCIUM (test code = 2209) 9.2 MG/DL PROTEIN, TOTAL (test code = 2229) 7.2 G/DL ALBUMIN (test code = 2201) 4.7 G/DL CALC GLOBULIN (test code = 2240) 2.5 G/DL CALC A/G RATIO (test code = 2234) 1.9 RATIO BILIRUBIN, TOTAL (test code = 2207) 0.2 MG/DL ALKALINE PHOSPHATASE (test code = 2204) 95 U/L AST (test code = 2218) 22 U/L ALT (test code = 2219) 15 U/L Ervin CavazosLIPID [id number] 00:00:00* Test Item Value Reference Range Interpretation Comme nts CHOLESTEROL (test code = 2210) 202 MG/DL TRIGLYCERIDES (test code = 2232) 73 MG/DL HDL CHOLESTEROL (test code = 2220) 68 MG/DL CALC LDL CHOL (test code = 2237) 119 MG/DL RISK RATIO LDL/HDL (test cod e = 2238) 1.76 RATIO Ervin CavazosTHYROID II PROFILE (T3U, T4, T7, TSH)2019-03-15 00:00:00* Test Item Value Reference Range Interpretation Comme nts T-UPTAKE (test code = 2817) 27.2 % THYROX. BIND. CAPAC. (test c ode = 96128) 1.2 T4 (THYROXINE) (test code = 2819) 6.2 UG/DL CORRECTED T4 (FTI) (test cod e = 2820) 5.2 UG/DL TSH, THIRD GENERATION (test code = 2821) 2.830 UIU/ML Ervin CavazosHEMOGLOBIN [id number] 00:00:00* Test Item Value Reference Range Interpretation Comme nts HEMOGLOBIN A1c (test code = 34100) 5.7 % Ervin CavazosCBC W/AUTO [id number] 00:00:00* Test Item Value Reference Range Interpretation Comme nts WBC (test code = 1001) 4.8 K/UL RBC (test code = 1002) 4.18 M/UL HEMOGLOBIN (test code = 1003) 12.7 G/DL HEMATOCRIT (test code = 1004) 37.3 % MCV (test code = 1005) 89.2 fL MCH (test code = 1006) 30.4 PG MCHC (test code = 1007) 34.0 G/DL RDW (test code = 1038) 12.8 % NEUTROPHILS (test code = 1008) 51.1 % LYMPHOCYTES (test code = 1010) 37.8 % MONOCYTES (test code = 1011) 8.4 % EOSINOPHILS (test code = 1012) 1.9 % BASOPHILS (test code = 1013) 0.8 % PLATELET COUNT (test code = 1015) 246 K/UL Ervin CavazosCOMPREHENSIVE METABOLIC [id number] 00:00:00* Test Item Value Reference Range Interpretation Comme nts GLUCOSE (test code = 2217) 97 MG/DL BUN (test code = 2208) 13 MG/DL CREATININE (test code = 2214) 0.66 MG/DL eGFR AMER. (test cod e = 35916) 107 ML/MIN/1.73 eGFR NON- AMER. (test code = 73251) 93 ML/MIN/1.73 CALC BUN/CREAT (test code = 2235) 20 RATIO SODIUM (test code = 2231) 138 MEQ/L POTASSIUM (test code = 2228) 4.3 MEQ/L CHLORIDE (test code = 2215) 99 MEQ/L CARBON DIOXIDE (test code = 2206) 27 MEQ/L CALCIUM (test code = 2209) 9.2 MG/DL PROTEIN, TOTAL (test code = 2229) 7.2 G/DL ALBUMIN (test code = 2201) 4.7 G/DL CALC GLOBULIN (test code = 2240) 2.5 G/DL CALC A/G RATIO (test code = 2234) 1.9 RATIO BILIRUBIN, TOTAL (test code = 2207) 0.2 MG/DL ALKALINE PHOSPHATASE (test code = 2204) 95 U/L AST (test code = 2218) 22 U/L ALT (test code = 2219) 15 U/L Ervin CavazosLIPID [id number] 00:00:00* Test Item Value Reference Range Interpretation Comme nts CHOLESTEROL (test code = 2210) 202 MG/DL TRIGLYCERIDES (test code = 2232) 73 MG/DL HDL CHOLESTEROL (test code = 2220) 68 MG/DL CALC LDL CHOL (test code = 2237) 119 MG/DL RISK RATIO LDL/HDL (test cod e = 2238) 1.76 RATIO Ervin CavazosTHYROID II PROFILE (T3U, T4, T7, TSH)2019-03-15 00:00:00* Test Item Value Reference Range Interpretation Comme nts T-UPTAKE (test code = 2817) 27.2 % THYROX. BIND. CAPAC. (test c ode = 82288) 1.2 T4 (THYROXINE) (test code = 2819) 6.2 UG/DL CORRECTED T4 (FTI) (test cod e = 2820) 5.2 UG/DL TSH, THIRD GENERATION (test code = 2821) 2.830 UIU/ML Ervin CavazosHEMOGLOBIN [id number] 00:00:00* Test Item Value Reference Range Interpretation Comme nts HEMOGLOBIN A1c (test code = 32119) 5.7 % Ervin CavazosCBC W/AUTO [id number] 00:00:00* Test Item Value Reference Range Interpretation Comme nts WBC (test code = 1001) 4.8 K/UL RBC (test code = 1002) 4.18 M/UL HEMOGLOBIN (test code = 1003) 12.7 G/DL HEMATOCRIT (test code = 1004) 37.3 % MCV (test code = 1005) 89.2 fL MCH (test code = 1006) 30.4 PG MCHC (test code = 1007) 34.0 G/DL RDW (test code = 1038) 12.8 % NEUTROPHILS (test code = 1008) 51.1 % LYMPHOCYTES (test code = 1010) 37.8 % MONOCYTES (test code = 1011) 8.4 % EOSINOPHILS (test code = 1012) 1.9 % BASOPHILS (test code = 1013) 0.8 % PLATELET COUNT (test code = 1015) 246 K/UL Ervin CavazosCOMPREHENSIVE METABOLIC [id number] 00:00:00* Test Item Value Reference Range Interpretation Comme nts GLUCOSE (test code = 2217) 97 MG/DL BUN (test code = 2208) 13 MG/DL CREATININE (test code = 2214) 0.66 MG/DL eGFR AMER. (test cod e = 97435) 107 ML/MIN/1.73 eGFR NON- AMER. (test code = 81607) 93 ML/MIN/1.73 CALC BUN/CREAT (test code = 2235) 20 RATIO SODIUM (test code = 2231) 138 MEQ/L POTASSIUM (test code = 2228) 4.3 MEQ/L CHLORIDE (test code = 2215) 99 MEQ/L CARBON DIOXIDE (test code = 2206) 27 MEQ/L CALCIUM (test code = 2209) 9.2 MG/DL PROTEIN, TOTAL (test code = 2229) 7.2 G/DL ALBUMIN (test code = 2201) 4.7 G/DL CALC GLOBULIN (test code = 2240) 2.5 G/DL CALC A/G RATIO (test code = 2234) 1.9 RATIO BILIRUBIN, TOTAL (test code = 2207) 0.2 MG/DL ALKALINE PHOSPHATASE (test code = 2204) 95 U/L AST (test code = 2218) 22 U/L ALT (test code = 2219) 15 U/L Ervin CavazosLIPID [id number] 00:00:00* Test Item Value Reference Range Interpretation Comme nts CHOLESTEROL (test code = 2210) 202 MG/DL TRIGLYCERIDES (test code = 2232) 73 MG/DL HDL CHOLESTEROL (test code = 2220) 68 MG/DL CALC LDL CHOL (test code = 2237) 119 MG/DL RISK RATIO LDL/HDL (test cod e = 2238) 1.76 RATIO Ervin CavazosTHYROID II PROFILE (T3U, T4, T7, TSH)2019-03-15 00:00:00* Test Item Value Reference Range Interpretation Comme nts T-UPTAKE (test code = 2817) 27.2 % THYROX. BIND. CAPAC. (test c ode = 32585) 1.2 T4 (THYROXINE) (test code = 2819) 6.2 UG/DL CORRECTED T4 (FTI) (test cod e = 2820) 5.2 UG/DL TSH, THIRD GENERATION (test code = 2821) 2.830 UIU/ML Ervin CavazosHEMOGLOBIN [id number] 00:00:00* Test Item Value Reference Range Interpretation Comme camilla HEMOGLOBIN A1c (test code = 70414) 5.7 % Ervin CavazosCBC W/AUTO [id number] 00:00:00* Test Item Value Reference Range Interpretation Comme nts WBC (test code = 1001) 4.8 K/UL RBC (test code = 1002) 4.18 M/UL HEMOGLOBIN (test code = 1003) 12.7 G/DL HEMATOCRIT (test code = 1004) 37.3 % MCV (test code = 1005) 89.2 fL MCH (test code = 1006) 30.4 PG MCHC (test code = 1007) 34.0 G/DL RDW (test code = 1038) 12.8 % NEUTROPHILS (test code = 1008) 51.1 % LYMPHOCYTES (test code = 1010) 37.8 % MONOCYTES (test code = 1011) 8.4 % EOSINOPHILS (test code = 1012) 1.9 % BASOPHILS (test code = 1013) 0.8 % PLATELET COUNT (test code = 1015) 246 K/UL Ervin CavazosCOMPREHENSIVE METABOLIC [id number] 00:00:00* Test Item Value Reference Range Interpretation Comme nts GLUCOSE (test code = 2217) 97 MG/DL BUN (test code = 2208) 13 MG/DL CREATININE (test code = 2214) 0.66 MG/DL eGFR AMER. (test cod e = 95201) 107 ML/MIN/1.73 eGFR NON- AMER. (test code = 58231) 93 ML/MIN/1.73 CALC BUN/CREAT (test code = 2235) 20 RATIO SODIUM (test code = 2231) 138 MEQ/L POTASSIUM (test code = 2228) 4.3 MEQ/L CHLORIDE (test code = 2215) 99 MEQ/L CARBON DIOXIDE (test code = 2206) 27 MEQ/L CALCIUM (test code = 2209) 9.2 MG/DL PROTEIN, TOTAL (test code = 2229) 7.2 G/DL ALBUMIN (test code = 2201) 4.7 G/DL CALC GLOBULIN (test code = 2240) 2.5 G/DL CALC A/G RATIO (test code = 2234) 1.9 RATIO BILIRUBIN, TOTAL (test code = 2207) 0.2 MG/DL ALKALINE PHOSPHATASE (test code = 2204) 95 U/L AST (test code = 2218) 22 U/L ALT (test code = 2219) 15 U/L Ervin CavazosLIPID [id number] 00:00:00* Test Item Value Reference Range Interpretation Comme nts CHOLESTEROL (test code = 2210) 202 MG/DL TRIGLYCERIDES (test code = 2232) 73 MG/DL HDL CHOLESTEROL (test code = 2220) 68 MG/DL CALC LDL CHOL (test code = 2237) 119 MG/DL RISK RATIO LDL/HDL (test cod e = 2238) 1.76 RATIO Ervin CavazosTHYROID II PROFILE (T3U, T4, T7, TSH)2019-03-15 00:00:00* Test Item Value Reference Range Interpretation Comme nts T-UPTAKE (test code = 2817) 27.2 % THYROX. BIND. CAPAC. (test c ode = 37712) 1.2 T4 (THYROXINE) (test code = 2819) 6.2 UG/DL CORRECTED T4 (FTI) (test cod e = 2820) 5.2 UG/DL TSH, THIRD GENERATION (test code = 2821) 2.830 UIU/ML Ervin CavazosHEMOGLOBIN [id number] 00:00:00* Test Item Value Reference Range Interpretation Comme nts HEMOGLOBIN A1c (test code = 94579) 5.7 % Ervin CavazosCBC W/AUTO [id number] 00:00:00* Test Item Value Reference Range Interpretation Comme nts WBC (test code = 1001) 4.8 K/UL RBC (test code = 1002) 4.18 M/UL HEMOGLOBIN (test code = 1003) 12.7 G/DL HEMATOCRIT (test code = 1004) 37.3 % MCV (test code = 1005) 89.2 fL MCH (test code = 1006) 30.4 PG MCHC (test code = 1007) 34.0 G/DL RDW (test code = 1038) 12.8 % NEUTROPHILS (test code = 1008) 51.1 % LYMPHOCYTES (test code = 1010) 37.8 % MONOCYTES (test code = 1011) 8.4 % EOSINOPHILS (test code = 1012) 1.9 % BASOPHILS (test code = 1013) 0.8 % PLATELET COUNT (test code = 1015) 246 K/UL Ervin CavazosCOMPREHENSIVE METABOLIC [id number] 00:00:00* Test Item Value Reference Range Interpretation Comme nts GLUCOSE (test code = 2217) 97 MG/DL BUN (test code = 2208) 13 MG/DL CREATININE (test code = 2214) 0.66 MG/DL eGFR AMER. (test cod e = 59516) 107 ML/MIN/1.73 eGFR NON- AMER. (test code = 95173) 93 ML/MIN/1.73 CALC BUN/CREAT (test code = 2235) 20 RATIO SODIUM (test code = 2231) 138 MEQ/L POTASSIUM (test code = 2228) 4.3 MEQ/L CHLORIDE (test code = 2215) 99 MEQ/L CARBON DIOXIDE (test code = 2206) 27 MEQ/L CALCIUM (test code = 2209) 9.2 MG/DL PROTEIN, TOTAL (test code = 2229) 7.2 G/DL ALBUMIN (test code = 2201) 4.7 G/DL CALC GLOBULIN (test code = 2240) 2.5 G/DL CALC A/G RATIO (test code = 2234) 1.9 RATIO BILIRUBIN, TOTAL (test code = 2207) 0.2 MG/DL ALKALINE PHOSPHATASE (test code = 2204) 95 U/L AST (test code = 2218) 22 U/L ALT (test code = 2219) 15 U/L Ervin CavazosLIPID [id number] 00:00:00* Test Item Value Reference Range Interpretation Comme nts CHOLESTEROL (test code = 2210) 202 MG/DL TRIGLYCERIDES (test code = 2232) 73 MG/DL HDL CHOLESTEROL (test code = 2220) 68 MG/DL CALC LDL CHOL (test code = 2237) 119 MG/DL RISK RATIO LDL/HDL (test cod e = 2238) 1.76 RATIO Ervin CavazosTHYROID II PROFILE (T3U, T4, T7, TSH)2019-03-15 00:00:00* Test Item Value Reference Range Interpretation Comme nts T-UPTAKE (test code = 2817) 27.2 % THYROX. BIND. CAPAC. (test c ode = 42815) 1.2 T4 (THYROXINE) (test code = 2819) 6.2 UG/DL CORRECTED T4 (FTI) (test cod e = 2820) 5.2 UG/DL TSH, THIRD GENERATION (test code = 2821) 2.830 UIU/ML Ervin CavazosHEMOGLOBIN [id number] 00:00:00* Test Item Value Reference Range Interpretation Comme nts HEMOGLOBIN A1c (test code = 57198) 5.7 % Ervin Magallon DirkCBC W/AUTO [id number] 00:00:00* Test Item Value Reference Range Interpretation Comme nts WBC (test code = 1001) 4.8 K/UL RBC (test code = 1002) 4.18 M/UL HEMOGLOBIN (test code = 1003) 12.7 G/DL HEMATOCRIT (test code = 1004) 37.3 % MCV (test code = 1005) 89.2 fL MCH (test code = 1006) 30.4 PG MCHC (test code = 1007) 34.0 G/DL RDW (test code = 1038) 12.8 % NEUTROPHILS (test code = 1008) 51.1 % LYMPHOCYTES (test code = 1010) 37.8 % MONOCYTES (test code = 1011) 8.4 % EOSINOPHILS (test code = 1012) 1.9 % BASOPHILS (test code = 1013) 0.8 % PLATELET COUNT (test code = 1015) 246 K/UL Ervin Saravia, [id number] 00:00:00* Test Item Value Reference Range Interpretation Comme nts CULTURE, URINE (test code = 05462) SPECIMEN NUMBER: [id number] YOVANNY Rueda2019-03-01 00:00:00* Test Item Value Reference Range Interpretation Comme nts CULTURE, URINE (test code = 71314) SPECIMEN NUMBER: [id number] YOVANNY Rueda2019-03-01 00:00:00* Test Item Value Reference Range Interpretation Comme nts CULTURE, URINE (test code = 44578) SPECIMEN NUMBER: [id number] Ervin Saravia [id number] 00:00:00* Test Item Value Reference Range Interpretation Comme nts CULTURE, URINE (test code = 59875) SPECIMEN NUMBER: [id number] Ervin Saravia [id number] 00:00:00* Test Item Value Reference Range Interpretation Comme nts CULTURE, URINE (test code = 38113) SPECIMEN NUMBER: [id number] Ervin Saravia [id number] 00:00:00* Test Item Value Reference Range Interpretation Comme nts CULTURE, URINE (test code = 28256) SPECIMEN NUMBER: [id number] Ervin Saravia [id number] 00:00:00* Test Item Value Reference Range Interpretation Comme nts CULTURE, URINE (test code = 44227) SPECIMEN NUMBER: [id number] Ervin Saravia [id number] 00:00:00* Test Item Value Reference Range Interpretation Comme nts CULTURE, URINE (test code = 73700) SPECIMEN NUMBER: [id number] Ervin Saravia [id number] 00:00:00* Test Item Value Reference Range Interpretation Comme nts CULTURE, URINE (test code = 94456) SPECIMEN NUMBER: [id number] [facility] [id number] 00:00:00* Test Item Value Reference Range Interpretation Comme nts WBC (test code = 1001) 5.1 K/UL RBC (test code = 1002) 4.64 M/UL HEMOGLOBIN (test code = 1003) 13.9 G/DL HEMATOCRIT (test code = 1004) 41.0 % MCV (test code = 1005) 88.4 fL MCH (test code = 1006) 30.0 PG MCHC (test code = 1007) 33.9 G/DL RDW (test code = 1038) 13.0 % NEUTROPHILS (test code = 1008) 57.2 % LYMPHOCYTES (test code = 1010) 33.1 % MONOCYTES (test code = 1011) 8.1 % EOSINOPHILS (test code = 1012) 1.0 % BASOPHILS (test code = 1013) 0.6 % PLATELET COUNT (test code = 1015) 271 K/UL Ervin CavazosLIPID [id number] 00:00:00* Test Item Value Reference Range Interpretation Comme nts CHOLESTEROL (test code = 2210) 213 MG/DL TRIGLYCERIDES (test code = 2232) 88 MG/DL HDL CHOLESTEROL (test code = 2220) 67 MG/DL CALC LDL CHOL (test code = 2237) 128 MG/DL RISK RATIO LDL/HDL (test cod e = 2238) 1.92 RATIO Ervin Magallon [facility] W/AUTO [id number] 00:00:00* Test Item Value Reference Range Interpretation Comme nts WBC (test code = 1001) 5.1 K/UL RBC (test code = 1002) 4.64 M/UL HEMOGLOBIN (test code = 1003) 13.9 G/DL HEMATOCRIT (test code = 1004) 41.0 % MCV (test code = 1005) 88.4 fL MCH (test code = 1006) 30.0 PG MCHC (test code = 1007) 33.9 G/DL RDW (test code = 1038) 13.0 % NEUTROPHILS (test code = 1008) 57.2 % LYMPHOCYTES (test code = 1010) 33.1 % MONOCYTES (test code = 1011) 8.1 % EOSINOPHILS (test code = 1012) 1.0 % BASOPHILS (test code = 1013) 0.6 % PLATELET COUNT (test code = 1015) 271 K/UL Ervin CavazosLIPID [id number] 00:00:00* Test Item Value Reference Range Interpretation Comme nts CHOLESTEROL (test code = 2210) 213 MG/DL TRIGLYCERIDES (test code = 2232) 88 MG/DL HDL CHOLESTEROL (test code = 2220) 67 MG/DL CALC LDL CHOL (test code = 2237) 128 MG/DL RISK RATIO LDL/HDL (test cod e = 2238) 1.92 RATIO Ervin Magallon [facility] W/AUTO [id number] 00:00:00* Test Item Value Reference Range Interpretation Comme nts WBC (test code = 1001) 5.1 K/UL RBC (test code = 1002) 4.64 M/UL HEMOGLOBIN (test code = 1003) 13.9 G/DL HEMATOCRIT (test code = 1004) 41.0 % MCV (test code = 1005) 88.4 fL MCH (test code = 1006) 30.0 PG MCHC (test code = 1007) 33.9 G/DL RDW (test code = 1038) 13.0 % NEUTROPHILS (test code = 1008) 57.2 % LYMPHOCYTES (test code = 1010) 33.1 % MONOCYTES (test code = 1011) 8.1 % EOSINOPHILS (test code = 1012) 1.0 % BASOPHILS (test code = 1013) 0.6 % PLATELET COUNT (test code = 1015) 271 K/UL Ervin Magallon AustinLIP[facility] [id number] 00:00:00* Test Item Value Reference Range Interpretation Comme nts CHOLESTEROL (test code = 2210) 213 MG/DL TRIGLYCERIDES (test code = 2232) 88 MG/DL HDL CHOLESTEROL (test code = 2220) 67 MG/DL CALC LDL CHOL (test code = 2237) 128 MG/DL RISK RATIO LDL/HDL (test cod e = 2238) 1.92 RATIO Ervin Magallon [facility] W/AUTO [id number] 00:00:00* Test Item Value Reference Range Interpretation Comme nts WBC (test code = 1001) 5.1 K/UL RBC (test code = 1002) 4.64 M/UL HEMOGLOBIN (test code = 1003) 13.9 G/DL HEMATOCRIT (test code = 1004) 41.0 % MCV (test code = 1005) 88.4 fL MCH (test code = 1006) 30.0 PG MCHC (test code = 1007) 33.9 G/DL RDW (test code = 1038) 13.0 % NEUTROPHILS (test code = 1008) 57.2 % LYMPHOCYTES (test code = 1010) 33.1 % MONOCYTES (test code = 1011) 8.1 % EOSINOPHILS (test code = 1012) 1.0 % BASOPHILS (test code = 1013) 0.6 % PLATELET COUNT (test code = 1015) 271 K/UL Ervin Magallon [facility] [id number] 00:00:00* Test Item Value Reference Range Interpretation Comme nts CHOLESTEROL (test code = 2210) 213 MG/DL TRIGLYCERIDES (test code = 2232) 88 MG/DL HDL CHOLESTEROL (test code = 2220) 67 MG/DL CALC LDL CHOL (test code = 2237) 128 MG/DL RISK RATIO LDL/HDL (test cod e = 2238) 1.92 RATIO Ervin Magallon [facility] W/AUTO [id number] 00:00:00* Test Item Value Reference Range Interpretation Comme nts WBC (test code = 1001) 5.1 K/UL RBC (test code = 1002) 4.64 M/UL HEMOGLOBIN (test code = 1003) 13.9 G/DL HEMATOCRIT (test code = 1004) 41.0 % MCV (test code = 1005) 88.4 fL MCH (test code = 1006) 30.0 PG MCHC (test code = 1007) 33.9 G/DL RDW (test code = 1038) 13.0 % NEUTROPHILS (test code = 1008) 57.2 % LYMPHOCYTES (test code = 1010) 33.1 % MONOCYTES (test code = 1011) 8.1 % EOSINOPHILS (test code = 1012) 1.0 % BASOPHILS (test code = 1013) 0.6 % PLATELET COUNT (test code = 1015) 271 K/UL Ervin Magallon [facility] [id number] 00:00:00* Test Item Value Reference Range Interpretation Comme nts CHOLESTEROL (test code = 2210) 213 MG/DL TRIGLYCERIDES (test code = 2232) 88 MG/DL HDL CHOLESTEROL (test code = 2220) 67 MG/DL CALC LDL CHOL (test code = 2237) 128 MG/DL RISK RATIO LDL/HDL (test cod e = 2238) 1.92 RATIO Ervin CavazosCBC W/AUTO [id number] 00:00:00* Test Item Value Reference Range Interpretation Comme nts WBC (test code = 1001) 5.1 K/UL RBC (test code = 1002) 4.64 M/UL HEMOGLOBIN (test code = 1003) 13.9 G/DL HEMATOCRIT (test code = 1004) 41.0 % MCV (test code = 1005) 88.4 fL MCH (test code = 1006) 30.0 PG MCHC (test code = 1007) 33.9 G/DL RDW (test code = 1038) 13.0 % NEUTROPHILS (test code = 1008) 57.2 % LYMPHOCYTES (test code = 1010) 33.1 % MONOCYTES (test code = 1011) 8.1 % EOSINOPHILS (test code = 1012) 1.0 % BASOPHILS (test code = 1013) 0.6 % PLATELET COUNT (test code = 1015) 271 K/UL Ervin CavazosLIPID [id number] 00:00:00* Test Item Value Reference Range Interpretation Comme nts CHOLESTEROL (test code = 2210) 213 MG/DL TRIGLYCERIDES (test code = 2232) 88 MG/DL HDL CHOLESTEROL (test code = 2220) 67 MG/DL CALC LDL CHOL (test code = 2237) 128 MG/DL RISK RATIO LDL/HDL (test cod e = 2238) 1.92 RATIO Ervin CavazosCBC W/AUTO [id number] 00:00:00* Test Item Value Reference Range Interpretation Comme nts WBC (test code = 1001) 5.1 K/UL RBC (test code = 1002) 4.64 M/UL HEMOGLOBIN (test code = 1003) 13.9 G/DL HEMATOCRIT (test code = 1004) 41.0 % MCV (test code = 1005) 88.4 fL MCH (test code = 1006) 30.0 PG MCHC (test code = 1007) 33.9 G/DL RDW (test code = 1038) 13.0 % NEUTROPHILS (test code = 1008) 57.2 % LYMPHOCYTES (test code = 1010) 33.1 % MONOCYTES (test code = 1011) 8.1 % EOSINOPHILS (test code = 1012) 1.0 % BASOPHILS (test code = 1013) 0.6 % PLATELET COUNT (test code = 1015) 271 K/UL Ervin CavazosLIPID [id number] 00:00:00* Test Item Value Reference Range Interpretation Comme nts CHOLESTEROL (test code = 2210) 213 MG/DL TRIGLYCERIDES (test code = 2232) 88 MG/DL HDL CHOLESTEROL (test code = 2220) 67 MG/DL CALC LDL CHOL (test code = 2237) 128 MG/DL RISK RATIO LDL/HDL (test cod e = 2238) 1.92 RATIO Ervin Magallon [facility] W/AUTO [id number] 00:00:00* Test Item Value Reference Range Interpretation Comme nts WBC (test code = 1001) 5.1 K/UL RBC (test code = 1002) 4.64 M/UL HEMOGLOBIN (test code = 1003) 13.9 G/DL HEMATOCRIT (test code = 1004) 41.0 % MCV (test code = 1005) 88.4 fL MCH (test code = 1006) 30.0 PG MCHC (test code = 1007) 33.9 G/DL RDW (test code = 1038) 13.0 % NEUTROPHILS (test code = 1008) 57.2 % LYMPHOCYTES (test code = 1010) 33.1 % MONOCYTES (test code = 1011) 8.1 % EOSINOPHILS (test code = 1012) 1.0 % BASOPHILS (test code = 1013) 0.6 % PLATELET COUNT (test code = 1015) 271 K/UL Ervin CavazosLIPID [id number] 00:00:00* Test Item Value Reference Range Interpretation Comme nts CHOLESTEROL (test code = 2210) 213 MG/DL TRIGLYCERIDES (test code = 2232) 88 MG/DL HDL CHOLESTEROL (test code = 2220) 67 MG/DL CALC LDL CHOL (test code = 2237) 128 MG/DL RISK RATIO LDL/HDL (test cod e = 2238) 1.92 RATIO Ervin Magallon [facility] W/AUTO [id number] 00:00:00* Test Item Value Reference Range Interpretation Comme nts WBC (test code = 1001) 5.1 K/UL RBC (test code = 1002) 4.64 M/UL HEMOGLOBIN (test code = 1003) 13.9 G/DL HEMATOCRIT (test code = 1004) 41.0 % MCV (test code = 1005) 88.4 fL MCH (test code = 1006) 30.0 PG MCHC (test code = 1007) 33.9 G/DL RDW (test code = 1038) 13.0 % NEUTROPHILS (test code = 1008) 57.2 % LYMPHOCYTES (test code = 1010) 33.1 % MONOCYTES (test code = 1011) 8.1 % EOSINOPHILS (test code = 1012) 1.0 % BASOPHILS (test code = 1013) 0.6 % PLATELET COUNT (test code = 1015) 271 K/UL Ervin Magallon [facility]LIP[facility] [id number] 00:00:00* Test Item Value Reference Range Interpretation Comme nts CHOLESTEROL (test code = 2210) 213 MG/DL TRIGLYCERIDES (test code = 2232) 88 MG/DL HDL CHOLESTEROL (test code = 2220) 67 MG/DL CALC LDL CHOL (test code = 2237) 128 MG/DL RISK RATIO LDL/HDL (test cod e = 2238) 1.92 RATIO Ervin Magallon AustinHEMOGLOBIN [id number] 00:00:00* Test Item Value Reference Range Interpretation Comme nts HEMOGLOBIN A1c (test code = 79707) 5.8 % Ervin Magallon AustinHEMOGLOBIN [id number] 00:00:00* Test Item Value Reference Range Interpretation Comme nts HEMOGLOBIN A1c (test code = 27140) 5.8 % Ervin Naun AustinHEMOGLOBIN [id number] 00:00:00* Test Item Value Reference Range Interpretation Comme nts HEMOGLOBIN A1c (test code = 07014) 5.8 % Ervin Naun AustinHEMOGLOBIN [id number] 00:00:00* Test Item Value Reference Range Interpretation Comme nts HEMOGLOBIN A1c (test code = 25164) 5.8 % Ervin Magallon AustinHEMOGLOBIN [id number] 00:00:00* Test Item Value Reference Range Interpretation Comme nts HEMOGLOBIN A1c (test code = 18353) 5.8 % Ervin Naun AustinHEMOGLOBIN [id number] 00:00:00* Test Item Value Reference Range Interpretation Comme nts HEMOGLOBIN A1c (test code = 92293) 5.8 % Ervin CavazosHEMOGLOBIN [id number] 00:00:00* Test Item Value Reference Range Interpretation Comme nts HEMOGLOBIN A1c (test code = 90596) 5.8 % Ervin Magallon AustinHEMOGLOBIN [id number] 00:00:00* Test Item Value Reference Range Interpretation Comme camilla HEMOGLOBIN A1c (test code = 64040) 5.8 % Ervin Magallon AustinHEMOGLOBIN [id number] 00:00:00* Test Item Value Reference Range Interpretation Comme camilla HEMOGLOBIN A1c (test code = 77233) 5.8 % Ervin Magallon AustinCOMPREHENSIVE METABOLIC [id number] 00:00:00* Test Item Value Reference Range Interpretation Comme nts GLUCOSE (test code = 2217) 129 MG/DL BUN (test code = 2208) 14 MG/DL CREATININE (test code = 2214) 0.86 MG/DL eGFR AMER. (test cod e = 23966) 82 ML/MIN/1.73 eGFR NON- AMER. (test code = 15304) 71 ML/MIN/1.73 CALC BUN/CREAT (test code = 2235) 16 RATIO SODIUM (test code = 2231) 142 MEQ/L POTASSIUM (test code = 2228) 4.1 MEQ/L CHLORIDE (test code = 2215) 102 MEQ/L CARBON DIOXIDE (test code = 2206) 28 MEQ/L CALCIUM (test code = 2209) 9.6 MG/DL PROTEIN, TOTAL (test code = 2229) 7.2 G/DL ALBUMIN (test code = 2201) 4.7 G/DL CALC GLOBULIN (test code = 2240) 2.5 G/DL CALC A/G RATIO (test code = 2234) 1.9 RATIO BILIRUBIN, TOTAL (test code = 2207) 0.2 MG/DL ALKALINE PHOSPHATASE (test code = 2204) 87 U/L AST (test code = 2218) 20 U/L ALT (test code = 2219) 16 U/L Ervin [id number] 00:00:00* Test Item Value Reference Range Interpretation Comme camilla TSH, THIRD GENERATION (test code = 2821) 1.660 UIU/ML Ervin CavazosCOMPREHENSIVE METABOLIC [id number] 00:00:00* Test Item Value Reference Range Interpretation Comme nts GLUCOSE (test code = 2217) 129 MG/DL BUN (test code = 2208) 14 MG/DL CREATININE (test code = 2214) 0.86 MG/DL eGFR AMER. (test cod e = 25402) 82 ML/MIN/1.73 eGFR NON- AMER. (test code = 98998) 71 ML/MIN/1.73 CALC BUN/CREAT (test code = 2235) 16 RATIO SODIUM (test code = 2231) 142 MEQ/L POTASSIUM (test code = 2228) 4.1 MEQ/L CHLORIDE (test code = 2215) 102 MEQ/L CARBON DIOXIDE (test code = 2206) 28 MEQ/L CALCIUM (test code = 2209) 9.6 MG/DL PROTEIN, TOTAL (test code = 2229) 7.2 G/DL ALBUMIN (test code = 2201) 4.7 G/DL CALC GLOBULIN (test code = 2240) 2.5 G/DL CALC A/G RATIO (test code = 2234) 1.9 RATIO BILIRUBIN, TOTAL (test code = 2207) 0.2 MG/DL ALKALINE PHOSPHATASE (test code = 2204) 87 U/L AST (test code = 2218) 20 U/L ALT (test code = 2219) 16 U/L Ervin [id number] 00:00:00* Test Item Value Reference Range Interpretation Comme nts TSH, THIRD GENERATION (test code = 2821) 1.660 UIU/ML Ervin CavazosCOMPREHENSIVE METABOLIC [id number] 00:00:00* Test Item Value Reference Range Interpretation Comme nts GLUCOSE (test code = 2217) 129 MG/DL BUN (test code = 2208) 14 MG/DL CREATININE (test code = 2214) 0.86 MG/DL eGFR AMER. (test cod e = 09460) 82 ML/MIN/1.73 eGFR NON- AMER. (test code = 00409) 71 ML/MIN/1.73 CALC BUN/CREAT (test code = 2235) 16 RATIO SODIUM (test code = 2231) 142 MEQ/L POTASSIUM (test code = 2228) 4.1 MEQ/L CHLORIDE (test code = 2215) 102 MEQ/L CARBON DIOXIDE (test code = 2206) 28 MEQ/L CALCIUM (test code = 2209) 9.6 MG/DL PROTEIN, TOTAL (test code = 2229) 7.2 G/DL ALBUMIN (test code = 2201) 4.7 G/DL CALC GLOBULIN (test code = 2240) 2.5 G/DL CALC A/G RATIO (test code = 2234) 1.9 RATIO BILIRUBIN, TOTAL (test code = 2207) 0.2 MG/DL ALKALINE PHOSPHATASE (test code = 2204) 87 U/L AST (test code = 2218) 20 U/L ALT (test code = 2219) 16 U/L Ervin Magallon [id number] 00:00:00* Test Item Value Reference Range Interpretation Comme nts TSH, THIRD GENERATION (test code = 2821) 1.660 UIU/ML Ervin CavazosCOMPREHENSIVE METABOLIC [id number] 00:00:00* Test Item Value Reference Range Interpretation Comme nts GLUCOSE (test code = 2217) 129 MG/DL BUN (test code = 2208) 14 MG/DL CREATININE (test code = 2214) 0.86 MG/DL eGFR AMER. (test cod e = 59389) 82 ML/MIN/1.73 eGFR NON- AMER. (test code = 21255) 71 ML/MIN/1.73 CALC BUN/CREAT (test code = 2235) 16 RATIO SODIUM (test code = 2231) 142 MEQ/L POTASSIUM (test code = 2228) 4.1 MEQ/L CHLORIDE (test code = 2215) 102 MEQ/L CARBON DIOXIDE (test code = 2206) 28 MEQ/L CALCIUM (test code = 2209) 9.6 MG/DL PROTEIN, TOTAL (test code = 2229) 7.2 G/DL ALBUMIN (test code = 2201) 4.7 G/DL CALC GLOBULIN (test code = 2240) 2.5 G/DL CALC A/G RATIO (test code = 2234) 1.9 RATIO BILIRUBIN, TOTAL (test code = 2207) 0.2 MG/DL ALKALINE PHOSPHATASE (test code = 2204) 87 U/L AST (test code = 2218) 20 U/L ALT (test code = 2219) 16 U/L Ervin Magallon [id number] 00:00:00* Test Item Value Reference Range Interpretation Comme nts TSH, THIRD GENERATION (test code = 2821) 1.660 UIU/ML Ervin CavazosCOMPREHENSIVE METABOLIC [id number] 00:00:00* Test Item Value Reference Range Interpretation Comme nts GLUCOSE (test code = 2217) 129 MG/DL BUN (test code = 2208) 14 MG/DL CREATININE (test code = 2214) 0.86 MG/DL eGFR AMER. (test cod e = 58342) 82 ML/MIN/1.73 eGFR NON- AMER. (test code = 00913) 71 ML/MIN/1.73 CALC BUN/CREAT (test code = 2235) 16 RATIO SODIUM (test code = 2231) 142 MEQ/L POTASSIUM (test code = 2228) 4.1 MEQ/L CHLORIDE (test code = 2215) 102 MEQ/L CARBON DIOXIDE (test code = 2206) 28 MEQ/L CALCIUM (test code = 2209) 9.6 MG/DL PROTEIN, TOTAL (test code = 2229) 7.2 G/DL ALBUMIN (test code = 2201) 4.7 G/DL CALC GLOBULIN (test code = 2240) 2.5 G/DL CALC A/G RATIO (test code = 2234) 1.9 RATIO BILIRUBIN, TOTAL (test code = 2207) 0.2 MG/DL ALKALINE PHOSPHATASE (test code = 2204) 87 U/L AST (test code = 2218) 20 U/L ALT (test code = 2219) 16 U/L Ervin Magallon [id number] 00:00:00* Test Item Value Reference Range Interpretation Comme nts TSH, THIRD GENERATION (test code = 2821) 1.660 UIU/ML Ervin CavazosCOMPREHENSIVE METABOLIC [id number] 00:00:00* Test Item Value Reference Range Interpretation Comme nts GLUCOSE (test code = 2217) 129 MG/DL BUN (test code = 2208) 14 MG/DL CREATININE (test code = 2214) 0.86 MG/DL eGFR AMER. (test cod e = 79184) 82 ML/MIN/1.73 eGFR NON- AMER. (test code = 32854) 71 ML/MIN/1.73 CALC BUN/CREAT (test code = 2235) 16 RATIO SODIUM (test code = 2231) 142 MEQ/L POTASSIUM (test code = 2228) 4.1 MEQ/L CHLORIDE (test code = 2215) 102 MEQ/L CARBON DIOXIDE (test code = 2206) 28 MEQ/L CALCIUM (test code = 2209) 9.6 MG/DL PROTEIN, TOTAL (test code = 2229) 7.2 G/DL ALBUMIN (test code = 2201) 4.7 G/DL CALC GLOBULIN (test code = 2240) 2.5 G/DL CALC A/G RATIO (test code = 2234) 1.9 RATIO BILIRUBIN, TOTAL (test code = 2207) 0.2 MG/DL ALKALINE PHOSPHATASE (test code = 2204) 87 U/L AST (test code = 2218) 20 U/L ALT (test code = 2219) 16 U/L Ervin Magallon [id number] 00:00:00* Test Item Value Reference Range Interpretation Comme nts TSH, THIRD GENERATION (test code = 2821) 1.660 UIU/ML Ervin Magallon [place] [id number] 00:00:00* Test Item Value Reference Range Interpretation Comme nts GLUCOSE (test code = 2217) 129 MG/DL BUN (test code = 2208) 14 MG/DL CREATININE (test code = 2214) 0.86 MG/DL eGFR AMER. (test cod e = 06913) 82 ML/MIN/1.73 eGFR NON- AMER. (test code = 12042) 71 ML/MIN/1.73 CALC BUN/CREAT (test code = 2235) 16 RATIO SODIUM (test code = 2231) 142 MEQ/L POTASSIUM (test code = 2228) 4.1 MEQ/L CHLORIDE (test code = 2215) 102 MEQ/L CARBON DIOXIDE (test code = 2206) 28 MEQ/L CALCIUM (test code = 2209) 9.6 MG/DL PROTEIN, TOTAL (test code = 2229) 7.2 G/DL ALBUMIN (test code = 2201) 4.7 G/DL CALC GLOBULIN (test code = 2240) 2.5 G/DL CALC A/G RATIO (test code = 2234) 1.9 RATIO BILIRUBIN, TOTAL (test code = 2207) 0.2 MG/DL ALKALINE PHOSPHATASE (test code = 2204) 87 U/L AST (test code = 2218) 20 U/L ALT (test code = 2219) 16 U/L Ervin CavazosYqnweiEYU2625-51-70 00:00:00* Test Item Value Reference Range Interpretation Comme nts TSH, THIRD GENERATION (test code = 2821) 1.660 UIU/ML Ervin Magallon [place] METAB[place] [id number] 00:00:00* Test Item Value Reference Range Interpretation Comme nts GLUCOSE (test code = 2217) 129 MG/DL BUN (test code = 2208) 14 MG/DL CREATININE (test code = 2214) 0.86 MG/DL eGFR AMER. (test cod e = 59970) 82 ML/MIN/1.73 eGFR NON- AMER. (test code = 48597) 71 ML/MIN/1.73 CALC BUN/CREAT (test code = 2235) 16 RATIO SODIUM (test code = 2231) 142 MEQ/L POTASSIUM (test code = 2228) 4.1 MEQ/L CHLORIDE (test code = 2215) 102 MEQ/L CARBON DIOXIDE (test code = 2206) 28 MEQ/L CALCIUM (test code = 2209) 9.6 MG/DL PROTEIN, TOTAL (test code = 2229) 7.2 G/DL ALBUMIN (test code = 2201) 4.7 G/DL CALC GLOBULIN (test code = 2240) 2.5 G/DL CALC A/G RATIO (test code = 2234) 1.9 RATIO BILIRUBIN, TOTAL (test code = 2207) 0.2 MG/DL ALKALINE PHOSPHATASE (test code = 2204) 87 U/L AST (test code = 2218) 20 U/L ALT (test code = 2219) 16 U/L Ervin Magallon [id number] 00:00:00* Test Item Value Reference Range Interpretation Comme nts TSH, THIRD GENERATION (test code = 2821) 1.660 UIU/ML Ervin Magallon AustinCOMPREHENSIVE METABOLIC [id number] 00:00:00* Test Item Value Reference Range Interpretation Comme nts GLUCOSE (test code = 2217) 129 MG/DL BUN (test code = 2208) 14 MG/DL CREATININE (test code = 2214) 0.86 MG/DL eGFR AMER. (test cod e = 37981) 82 ML/MIN/1.73 eGFR NON- AMER. (test code = 44713) 71 ML/MIN/1.73 CALC BUN/CREAT (test code = 2235) 16 RATIO SODIUM (test code = 2231) 142 MEQ/L POTASSIUM (test code = 2228) 4.1 MEQ/L CHLORIDE (test code = 2215) 102 MEQ/L CARBON DIOXIDE (test code = 2206) 28 MEQ/L CALCIUM (test code = 2209) 9.6 MG/DL PROTEIN, TOTAL (test code = 2229) 7.2 G/DL ALBUMIN (test code = 2201) 4.7 G/DL CALC GLOBULIN (test code = 2240) 2.5 G/DL CALC A/G RATIO (test code = 2234) 1.9 RATIO BILIRUBIN, TOTAL (test code = 2207) 0.2 MG/DL ALKALINE PHOSPHATASE (test code = 2204) 87 U/L AST (test code = 2218) 20 U/L ALT (test code = 2219) 16 U/L Ervin [id number] 00:00:00* Test Item Value Reference Range Interpretation Comme nts TSH, THIRD GENERATION (test code = 2821) 1.660 UIU/ML Ervin Saravia [id number] 00:00:00* Test Item Value Reference Range Interpretation Comme nts CULTURE, URINE (test code = 74071) SPECIMEN NUMBER: [id number] Ervin Saravia [id number] 00:00:00* Test Item Value Reference Range Interpretation Comme nts CULTURE, URINE (test code = 38268) SPECIMEN NUMBER: [id number] Ervin Saravia [id number] 00:00:00* Test Item Value Reference Range Interpretation Comme nts CULTURE, URINE (test code = 86933) SPECIMEN NUMBER: [id number] YOVANNY Rueda2018-10-03 00:00:00* Test Item Value Reference Range Interpretation Comme nts CULTURE, URINE (test code = 80136) SPECIMEN NUMBER: [id number] YOVANNY Rueda2018-10-03 00:00:00* Test Item Value Reference Range Interpretation Comme nts CULTURE, URINE (test code = 19075) SPECIMEN NUMBER: [id number] YOVANNY Rueda2018-10-03 00:00:00* Test Item Value Reference Range Interpretation Comme nts CULTURE, URINE (test code = 25862) SPECIMEN NUMBER: [id number] YOVANNY Rueda2018-10-03 00:00:00* Test Item Value Reference Range Interpretation Comme nts CULTURE, URINE (test code = 52554) SPECIMEN NUMBER: [id number] YOVANNY Rueda2018-10-03 00:00:00* Test Item Value Reference Range Interpretation Comme nts CULTURE, URINE (test code = 13435) SPECIMEN NUMBER: [id number] YOVANNY Rueda2018-10-03 00:00:00* Test Item Value Reference Range Interpretation Comme nts CULTURE, URINE (test code = 21964) SPECIMEN NUMBER: [id number] YOVANNY Rueda2018-09-13 00:00:00* Test Item Value Reference Range Interpretation Comme nts CULTURE, URINE (test code = 48146) SPECIMEN NUMBER: [id number] YOVANNY Rueda2018-09-13 00:00:00* Test Item Value Reference Range Interpretation Comme nts CULTURE, URINE (test code = 02884) SPECIMEN NUMBER: [id number] YOVANNY Rueda2018-09-13 00:00:00* Test Item Value Reference Range Interpretation Comme nts CULTURE, URINE (test code = 28101) SPECIMEN NUMBER: [id number] Ervin Saravia [id number] 00:00:00* Test Item Value Reference Range Interpretation Comme nts CULTURE, URINE (test code = 76692) SPECIMEN NUMBER: [id number] Ervin Saravia [id number] 00:00:00* Test Item Value Reference Range Interpretation Comme nts CULTURE, URINE (test code = 71954) SPECIMEN NUMBER: [id number] YOVANNY Rueda2018-09-13 00:00:00* Test Item Value Reference Range Interpretation Comme nts CULTURE, URINE (test code = 43476) SPECIMEN NUMBER: [id number] Ervin Saravia, [id number] 00:00:00* Test Item Value Reference Range Interpretation Comme nts CULTURE, URINE (test code = 65809) SPECIMEN NUMBER: [id number] Ervin Saravia, [id number] 00:00:00* Test Item Value Reference Range Interpretation Comme nts CULTURE, URINE (test code = 62733) SPECIMEN NUMBER: [id number] Ervin Saravia, [id number] 00:00:00* Test Item Value Reference Range Interpretation Comme nts CULTURE, URINE (test code = 94181) SPECIMEN NUMBER: [id number] Ervin Magallon AustinTHYROID II PROFILE (T3U, T4, T7, TSH)2016-06-08 00:00:00* Test Item Value Reference Range Interpretation Comme nts T3 UPTAKE (test code = 2817)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 0.569 g/cm2. The T-score is -2.50 and the Z-score is -0.90. This matches the World Health Organization's criteria for osteoporosis and places the patient at a high risk for fracture. An additional bone density evaluation was performed 07/27/2020 on the right total femur area using a Hologic unit. The BMD average for the exam is 0.734 g/cm2. The T-score is -1.70 and the Z-score is -0.40. This matches the World Health Organization's criteria for osteopenia and places the patient at a medium risk for fracture. An additional bone density evaluation was performed 07/27/2020 on the left total femur area using a Hologic unit. The BMD average for the exam is 0.779 g/cm2. The T-score is -1.30 and the Z-score is 0.10. This matches the World Health Organization's criteria for osteopenia and places the patient at a medium risk for fracture. An additional bone density evaluation was performed 07/27/2020 on the AP L1-L4 region of spine using a Hologic unit. The BMD average for the exam is 0.752 g/cm2. The T-score is -2.70 and the Z-score is -0.80. This matches the World Health Organization's criteria for osteoporosis and places the patient at a high risk for fracture. IMPRESSION: OSTEOPOROSIS Patient is at high risk for fracture. This exam was interpreted at [id number] [facility]. Dr. Alicia lance/juan jose:07/27/2020 16:51:48 Topstitcher Lockstitch(s): Susana Flores [facility]2018-03-20 11:10:00* EXAM: US RETROPERITONEAL HISTORY: 62 years year-old Female with -left side pain COMPARISON: CT abdomen/pelvis 11/19/2014 TECHNIQUE: Multiple longitudinal and transverse real time sonographic images of the kidneys and urinary bladder are obtained. FINDINGS: Right kidney: Size: 11.2 cm. The kidney is normal in size, shape, contour, and position. The cortex is normal in thickness and the corticomedullary differentiation is maintained. No calculus, hydronephrosis, or mass is appreciated. No cyst is appreciated. Left kidney: Size: 10.3 cm. The kidney is normal in size, shape, contour, and position. The cortex is normal in thickness and the corticomedullary differentiation is maintained. No calculus, hydronephrosis, or mass is appreciated. No cyst is appreciated. Bladder: The bladder is collapsed. Bilateral bladder jets noted. Aorta and Inferior Vena Cava: The visualized abdominal aorta and bifurcation are unremarkable. The proximal IVC is patent. IMPRESSION: 1. Unremarkable retroperitoneal ultrasound. SL: [id number] [facility] [id number] 13:31:00* BILATERAL DIGITAL SCREENING MAMMOGRAM WITH CAD: 09/21/2017 CLINICAL: Routine/Routine. Current study was evaluated with a Computer Aided Detection (CAD) system. COMPARISON:No prior exams were available for comparison. TECHNIQUE: Mammographic views were obtained using digital acquisition. Current study was also evaluated with a Computer Aided Detection (CAD) system. There are scattered fibroglandular densities in both breasts. FINDINGS: No significant masses, calcifications, or other findings are seen in either breast. IMPRESSION: BENIGN RECOMMENDATION:There is no mammographic evidence of malignancy. A 1 year screening mammogram is recommended.(09/22/2018) SUMMARY: The patient reported a history of breast pain on her intake questionnaire. There is no mammographic correlate to the reported symptom of pain in the breast. Therefore, management of this symptom should be based on findings at clinical examination. Targeted sonography should be considered if the pain is clinically suspicious. Dr. Ileana razo/juan jose:09/21/2017 15:46:37 Topstitcher Lockstitch(s): Janie Fonseca [facility] letter sent: BI-RADS 1/2 Mammogram BI-RADS: 2 Benign JOANA CHANEY [id number] 13:05:00* EXAM: Brain wo contrast CT PROVIDED CLINICAL HISTORY: Right-sided morning headaches for 6 months. TECHNIQUE: Contiguous axial images from the skull base to the vertex without intravenous contrast. Coronal and sagittal reformats. EXPOSURE: Total exam DLP is 849.51 mGy-cm. COMPARISON: CT Brain performed 12/05/2015. FINDINGS: BRAIN: No intracranial hemorrhage or other fluid collection. No acute transcortical infarct. No brain parenchymal contusion or edema. No intracranial mass. No clinically significant white matter disease. Age-consistent brain parenchymal volume. Atherosclerotic calcifications in the intracranial carotid arteries. VENTRICLES / CISTERNS / SHIFT: No hydrocephalus. No significant effacement of the basal cisterns or foramen magnum. No significant midline shift. BONES / SCALP: No acute depressed fracture of the calvarium or skull base. No aggressive bone lesions. No significant extracranial soft tissue abnormality. IMAGED SINUSES / MASTOIDS: No significant paranasal sinus fluid. No significant sinus mucosal thickening. No significant fluid in the imaged mastoid air cells. IMPRESSION: No acute intracranial abnormality. No significant interval change of the intracranial findings. SL: BRITTANY [facility] [id number] 16:40:00* CRANIAL CT (without contrast) HISTORY: Headache, dizziness, and giddiness. TECHNIQUE: Helical CT images were obtained from the foramen magnum to the vertex without the use of intravenous contrast. The examination was performed from the emergency department. There are no prior studies available for comparison. FINDINGS: There is normal appearance of the ventricular system and extraventricular CSF spaces. There is no evidence of mass, midline shift, hemorrhage, extra-axial fluid collection, acute infarction, or other focal abnormal attenuation within the brain parenchyma. The calvarium is intact. The visualized sinuses and mastoids are clear. CONCLUSION: 1. Negative noncontrast cranial CT. Coding: Brain wo contrast CT CPT Code: 05788 SL: Machelle Harrell M.D. [facility]pmcbjwez0581-92-40 16:40:00* NAME: VIRAL FARZANEH : 1955 SEX: F Ordering Physician: Chayo Paul Abdomen/Pelvis w contrast CT : Nov 19, 2014 05:04:00 PM. CLINICAL INDICATION: Abdominal pain, acute. Comparison Examination: None. FINDINGS: Tiny calcified right hilar and subcarinal nodes. Tiny right pleural effusion. Lung bases otherwise clear without left pleural effusion. No focal liver or splenic abnormality identified. There are patchy areas of decreased density scattered about both kidneys most consistent with changes of bilateral pyelonephritis. No pelvocaliectasis or ureterectasis bilaterally. There is slight prominence of the pancreatic duct. The adrenals, pancreas and gallbladder are otherwise unremarkable. Small amount of calcification along the visualized descending thoracic aorta. Abdominal aortic calcification and right common iliac artery calcification. No abdominal or pelvic adenopathy. The patient is status post hysterectomy. The bladder is unremarkable. The appendix is unremarkable. No bowel abnormality identified in the abdomen or pelvis. No abnormal fluid collection identified in the abdomen or pelvis. CONCLUSIONS:1. Bilateral pyelonephritis. 2. Tiny right pleural effusion. 3. Vascular calcification in the lower chest, abdomen and pelvis as above. 4. Status post hysterectomy. SL: 14 [facility]
[2025-03-29] MEDS ORDERED: NA CHLORIDE 0.9% 1,000 ML ONE (11:03)
[2025-03-29] MEDS ORDERED: FAMOTIDINE 20 MG/2 ML VIAL IV ONE (11:03)
[2025-03-29 11:28] LABS: Absolute Lymphocytes (CBC) 0.7 K/uL (0.7-4.9); Absolute Monocytes 0.4 K/uL (0.1-1.3); Absolute Neutrophil 5.9 K/uL (1.8-8.0); Basophils % 0.2 % (0-1.3); Eosinophils % 0.1 % (0-4.4); Hematocrit 42.5 % (36.0-45.0); Hemoglobin 14.3 g/dL (12.0-15.0); Lymphocytes % 9.9 % (15.3-44.8); MCH 31.5 pg (27.0-35.0); MCHC 33.7 g/dL (32.0-36.0); MCV 93.3 fL (80-100); Monocytes % 6.3 % (3.3-12.3); Neutrophils % 83.5 % (41.7-73.7); Platelets 226 thou/uL (152-406); RBC Red Blood Cell Count 4.56 M/uL (3.86-4.86); Red Cell Distribution Width 13.9 % (12.1-15.2)
[2025-03-29 11:37] LABS: PT Prothrombin Time 11.1 SECONDS (10-13.0); Protime INR 0.97
--- NOTE | 2025-03-29 11:37 | RAD REPORT ---
EXAM: Chest Single View HISTORY: 69 years Female COUGH COMPARISON: None. FINDINGS: LUNGS/PLEURA: The lungs are clear. No pleural effusions or pneumothorax. No pulmonary edema. CARDIAC/MEDIASTINUM: Mild cardiomegaly UPPER ABDOMEN: No significant abnormality. BONES: No acute abnormality. LINES/TUBES/OTHER: N/A IMPRESSION: No evidence of acute cardiopulmonary disease.
--- NOTE | 2025-03-29 11:47 | RAD REPORT ---
EXAMINATION: Head Brain Wo Cont CLINICAL INDICATION: Female, 69 years old.SYNCOPE TECHNIQUE: Axial CT images from the skull base to the vertex without intravenous contrast. Coronal an d sagittal reformatted images were created from the data set. One or more of the following dose reduction techniques were used: Automated exposure control, adjustment of the mA and/or kV according to patient size, and/or iterative reconstruction. Unless otherwise specified, incidental findings do not require dedicated imaging follow-up. [id number]. COMPARISON: No prior exam. FINDINGS: INTRACRANIAL: No acute intracranial hemorrhage. No hydrocephalus. No mass effect or midline shift. No significant white matter disease.Partially empty sella, typically a normal variant. VASCULATURE: No visualized abnormalities in the arteries or dural venous sinuses. SCALP/SKULL: No calvarial fracture identified. No acute soft tissue abnormality. SINUSES: The visualized paranasal sinuses are mostly clear. No significant mastoid fluid. IMPRESSION: No acute intracranial abnormality.
[2025-03-29 11:51] LABS: ALT/SGPT 22 U/L (13-56); AST/SGOT 19 U/L (15-37); Alkaline Phosphatase 85 U/L (45-117); BUN Blood Urea Nitrogen 8 mg/dL (7-18); Bicarbonate 27 mEq/L (21-32); Bilirubin Total 0.4 mg/dL (0.2-1.0); Glomerular Filtration Rate 76 ml/min (=/>90); Glucose Level 92 mg/dL (74-106); Lipase 47 U/L (13-75); Magnesium 2.4 mg/dL (1.6-2.4); NT PRO-BNP 115 pg/mL (<125); Sodium Level 135 mEq/L (136-145); Troponin High Sensitivity 8.5 pg/mL (<58.9)
[2025-03-29 11:54] LABS: Specific Gravity 1.008 (1.005-1.030); Sqamous Epithelial <5 /HPF (None Seen); Transitional Epithelial <5 /HPF (None Seen); Urine Bacteria None Seen /HPF (<20); Urine Bilirubin NEGATIVE (Negative); Urine Blood Negative (Negative); Urine Clarity Turbid (Clear); Urine Color Light-Yellow (Yellow); Urine Culture Reflex Order NOT NEEDED; Urine Glucose NEGATIVE (Negative); Urine Ketones NEGATIVE (Negative); Urine Microscopic Reflex YN ORDER UMIC; Urine Mucus Slight /HPF (None Seen); Urine Nitrite NEGATIVE (Negative); Urine Protein TRACE (Negative); Urine RBC <5 /HPF (None Seen); Urine Urobilinogen Normal (Normal); Urine WBC <5 /HPF (<5); Urine pH 6.5 (5.0-7.0)
[2025-03-29] MEDS ORDERED: CEFTRIAXONE 1000 MG/VIAL ONE (12:02)
--- NOTE | 2025-03-29 12:02 | EDPHYS ---
Physician Documentation [facility] Name: Farzaneh Escobedo Age: 69 yrs Sex: Female : 1955 Arrival Date: 03/29/2025 Time: 10:43 Bed 15 Private MD: Nahun Lugo HPI: 03/29 11:56 This 69 yrs old Female presents to ER via Ambulatory with complaints of rosalie Fainting. 11:56 The patient has experienced syncope, collapsed. Onset: The symptoms/episode rosalie began/occurred just prior to arrival. Duration: The patient has had multiple episodes, that last 1 second(s). Context: the episode(s) was witnessed, by no one, by family, occurred at a friend's home. Associated injury: Head/face:. Associated signs and symptoms: The patient has no apparent associated signs or symptoms. Current symptoms: Currently, the patient is not experiencing any symptoms, the patient feels back to baseline. The patient has not experienced similar symptoms in the past. Historical: - Allergies: 10:57 No Known Allergies; iw - Home Meds: 10:55 memantine 10 mg oral tablet 2 times per day [Active]; sertraline 50 mg oral tablet iw daily [Active]; levothyroxine 50 mcg tablet daily [Active]; olanzapine 7.5 mg oral tablet every day at bedtime [Active]; galantamine 8 mg oral tablet 2 times per day [Active]; - PMHx: 10:55 Hypothyroidism; iw - PSHx: 10:57 catarcats; hysterectomy; iw 10:58 breast cyst removed; knee; Cholecystectomy; iw - Immunization history:: Adult Immunizations up to date. - Infectious Disease History:: Denies. - Social history:: Smoking status: . - Family history:: not pertinent. ROS: 11:57 Constitutional: Negative for fever, chills, and weight loss, Eyes: Negative for injury, rosalie pain, redness, and discharge, ENT: Negative for injury, pain, and discharge, Neck: Negative for injury, pain, and swelling, Cardiovascular: Negative for chest pain, palpitations, and edema, Respiratory: Negative for shortness of breath, cough, wheezing, and pleuritic chest pain, Abdomen/GI: Negative for abdominal pain, nausea, vomiting, diarrhea, and constipation, Back: Negative for injury and pain, : Negative for injury, bleeding, discharge, and swelling, MS/Extremity: Negative for injury and deformity, Skin: Negative for injury, rash, and discoloration, Psych: Negative for depression, anxiety, suicide ideation, homicidal ideation, and hallucinations, Allergy/Immunology: Negative for hives, rash, and allergies, Endocrine: Negative for neck swelling, polydipsia, polyuria, polyphagia, and marked weight changes, Hematologic/Lymphatic: Negative for swollen nodes, abnormal bleeding, and unusual bruising, 11:57 Neuro: Positive for syncope, weakness, Exam: 11:57 Constitutional: This is a well developed, well nourished patient who is awake, alert, rosalie and in no acute distress. Head/Face: Normocephalic, atraumatic. Eyes: Pupils equal round and reactive to light, extra-ocular motions intact. Lids and lashes normal. Conjunctiva and sclera are non-icteric and not injected. Cornea within normal limits. Periorbital areas with no swelling, redness, or edema. ENT: Nares patent. No nasal discharge, no septal abnormalities noted. Tympanic membranes are normal and external auditory canals are clear. Oropharynx with no redness, swelling, or masses, exudates, or evidence of obstruction, uvula midline. Mucous membranes moist. Neck: Trachea midline, no thyromegaly or masses palpated, and no cervical lymphadenopathy. Supple, full range of motion without nuchal rigidity, or vertebral point tenderness. No Meningismus. Chest/axilla: Normal chest wall appearance and motion. Nontender with no deformity. No lesions are appreciated. Cardiovascular: Regular rate and rhythm with a normal S1 and S2. No gallops, murmurs, or rubs. Normal PMI, no JVD. No pulse deficits. Respiratory: Lungs have equal breath sounds bilaterally, clear to auscultation and percussion. No rales, rhonchi or wheezes noted. No increased work of breathing, no retractions or nasal flaring. Abdomen/GI: Soft, non-tender, with normal bowel sounds. No distension or tympany. No guarding or rebound. No evidence of tenderness throughout. Back: No spinal tenderness. No costovertebral tenderness. Full range of motion. Skin: Warm, dry with normal turgor. Normal color with no rashes, no lesions, and no evidence of cellulitis. MS/ Extremity: Pulses equal, no cyanosis. Neurovascular intact. Full, normal range of motion., bilateral aka Neuro: Awake and alert, GCS 15, oriented to person, place, time, and situation. Cranial nerves II-XII grossly intact. Motor strength 5/5 in all extremities. Sensory grossly intact. Cerebellar exam normal. Normal gait. Psych: Awake, alert, with orientation to person, place and time. Behavior, mood, and affect are within normal limits. 11:57 ECG was reviewed by the Attending Physician. Vital Signs: 10:53 BP 125 / 85; Pulse 81; Resp 16; Pulse Ox 98% on R/A; Weight 57.15 kg; Height 5 ft. 2 iw in. ; Pain 0/10; 11:20 BP 137 / 79; Pulse 71; Resp 18; Pulse Ox 98% on R/A; Pain 0/10; ld1 12:19 BP 141 / 74; Pulse 65; Resp 18; Temp 97.8(TE); Pulse Ox 99% on R/A; Pain 0/10; ld1 13:24 BP 142 / 65 Supine; Pulse 75; Resp 11; Pulse Ox 98% on R/A; ld1 13:25 BP 153 / 79 Sitting; Pulse 75; Resp 11; Pulse Ox 98% on R/A; ld1 13:26 BP 136 / 82 Standing; Pulse 76; Resp 14; Pulse Ox 98% on R/A; ld1 10:53 Body Mass Index 23.05 (57.15 kg, 157.48 cm) iw 10:53 Pain Scale: Adult iw 11:20 Pain Scale: Adult ld1 12:19 Pain Scale: Adult ld1 MDM: 10:53 Medical Screening Exam initiated rosalie 12:02 Differential Diagnosis: aortic aneurysm, cardiac arrhythmia, cerebrovascular accident, rosalie emotional response, GI bleed, idiopathic syncope, seizure, sepsis, vasovagal episode. Data reviewed: vital signs, nurses notes, lab test result(s), EKG, radiologic studies, CT scan, plain films. Consideration of Admission/Observation Patient was admitted/placed on observation. Escalation of care including admission/observation considered. I considered the following discharge prescriptions or medication management in the emergency department Medications were administered in the Emergency Department. See MAR. Independent interpretation of the following test(s) in the Emergency Department EKG: See my EKG interpretation above. Test considered but Not performed: MRI: no mri. Historians other than the Patient: Spouse/Significant Other: and her son. Care significantly affected by the following chronic conditions: hypothyroid. Counseling: I had a detailed discussion with the patient and/or guardian regarding the historical points, exam findings, and any diagnostic results supporting the discharge/admit diagnosis, lab results, radiology results, the need for further work-up and treatment in the hospital. 03/29 10:54 Order name: Basic Metabolic Panel; Complete Time: 12: [facility] 03/29 10:54 Order name: CBC with Diff; Complete Time: 11:45 03/29 10:54 Order name: LFT's; Complete Time: 12: [facility] 03/29 10:54 Order name: Magnesium; Complete Time: 12: [facility] 03/29 10:54 Order name: NT PRO-BNP; Complete Time: 12: rosalie 03/29 10:54 Order name: PT-INR; Complete Time: 11:45 03/29 10:54 Order name: Troponin HS; Complete Time: 12: [facility] 03/29 10:54 Order name: UA Rfx Oren Cult if indicated; Complete Time: 12:02 [facility] 03/29 10:54 Order name: Lipase; Complete Time: 12: [facility] 03/29 11:51 Order name: TSH; Complete Time: 13:37 [facility] 03/29 12:53 Order name: T4 Free; Complete Time: 13:37 [facility] 03/29 14:24 Order name: Basic Metabolic Panel EDMS 03/29 14:24 Order name: Basic Metabolic Panel EDMS 03/29 14:24 Order name: CBC with Automated Diff EDMS 03/29 14:24 Order name: CBC with Automated Diff EDMS 03/29 14:24 Order name: Magnesium EDMS 03/29 14:24 Order name: Magnesium EDMS 03/29 14:24 Order name: Troponin High Sensitivity EDMS 03/29 14:24 Order name: Troponin High Sensitivity EDMS 03/29 14:24 Order name: Troponin High Sensitivity EDMS 03/29 10:54 Order name: XRAY Chest (1 view); Complete Time: 11:45 03/29 10:54 Order name: CT Head Brain wo Cont; Complete Time: 12:02 [facility] 03/29 11:51 Order name: CT Chest, Abdomen, Pelvis - W/Contrast; Complete Time: 13:37 [facility] 03/29 10:54 Order name: Cardiac monitoring; Complete Time: : [facility] 03/29 10:54 Order name: EKG - Nurse/Tech; Complete Time: [facility] 03/29 10:54 Order name: IV Saline Lock; Complete Time: [facility] 03/29 10:54 Order name: Labs collected and sent; Complete Time: [facility] 03/29 10:54 Order name: O2 Per Protocol; Complete Time: [facility] 03/29 10:54 Order name: O2 Sat Monitoring; Complete Time: [facility] 03/29 12:49 Order name: Orthostatics; Complete Time: 13:30 la1 EC:57 Rate is 70 beats/min. Rhythm is regular. QRS Baring is Normal. IA interval is normal. QRS rosalie interval is normal. QT interval is normal. No ST changes noted. Clinical impression: Normal ECG and No evidence of ischemia. Interpreted by me. Reviewed by me. Administered Medications: 11:19 Drug: Famotidine IVP 20 mg IVP once; dilute with 10 mL 0.9% NaCl; give over 2 minutes ld1 Route: IVP; Site: right forearm; 13:30 Follow up: Response: No adverse reaction ld1 11:19 Drug: NS 0.9% IV 1000 ml IV at 1000 ml once; to be given as a bolus over 60 minutes ld1 Route: IV; Rate: 1000 ml; Site: right forearm; 12:19 Drug: Rocephin IV 1 grams IV at per protocol once; Given slow IV push per pharmacy ld1 instructions Route: IV; Rate: per protocol; Site: right antecubital; 13:31 Follow up: Response: No adverse reaction; IV Status: Completed infusion ld1 Disposition Summary: 03/29/25 12:02 Hospitalization Ordered Notes: Hospitalization Status: Observation rosalie Provider: Joanna Jacob cha Location: Telemetry/MedSurg (observation) rosalie Condition: Stable rosalie Problem: new rosalie Symptoms: have improved rosalie Bed/Room Type: Standard [facility] Room Assignment: 201(03/29/25 14:37) sp Diagnosis - Syncope Near rosalie - Weakness rosalie - UTI/ Urinary tract infection, site not specified rosalie Forms: - Medication Reconciliation Form rosalie - SBAR form rosalie - Leadership Thank You Letter rosalie Signatures: Dispatcher [employer] EDMS Nahun Arnold MD MD cha Pinkerton, Shawna sp Williams, Irene, KEISHA RN iw Raul Pulliam, CASING MAN-C CASING MAN-Cla1 Kalli Mccauley RN RN ld1 Corrections: (The following items were deleted from the chart) 10:55 10:55 Head Brain Wo Cont+CT.RAD.BRZ ordered. EDMS EDMS 14:37 12:02 rosalie amos
--- NOTE | 2025-03-29 12:02 | ER ---
Nurse's Notes [facility] Name: Farzaneh Escobedo Age: 69 yrs Sex: Female : 1955 Arrival Date: 03/29/2025 Time: 10:43 Bed 15 Private MD: Diagnosis: Syncope Near;Weakness;UTI/ Urinary tract infection, site not specified Presentation: 03/29 10:53 Chief complaint: Patient's son or daughter states: she was in the kitchen and her heard a thud and she had fainted, it took her 15 minutes to come back to her normal self, happened at 0700, she also passed out a second time when her was trying to get her up, she was very weak , now she feels normal but drowsy , she has been tired for a couple days. Coronavirus screen: At this time, the client does not indicate any symptoms associated with coronavirus-19. Ebola Screen: No symptoms or risks identified at this time. Initial Sepsis Screen: Does the patient meet any 2 criteria? No. Patient's initial sepsis screen is negative. Does the patient have a suspected source of infection? No. Patient's initial sepsis screen is negative. Risk Assessment: Do you want to hurt yourself or someone else? Patient reports no desire to harm self or others. Onset of symptoms was March 29, 2025. 10:53 Method Of Arrival: Ambulatory iw 10:53 Acuity: JUAN MANUEL 3 iw Historical: - Allergies: 10:57 No Known Allergies; iw - Home Meds: 10:55 memantine 10 mg oral tablet 2 times per day [Active]; sertraline 50 mg oral tablet iw daily [Active]; levothyroxine 50 mcg tablet daily [Active]; olanzapine 7.5 mg oral tablet every day at bedtime [Active]; galantamine 8 mg oral tablet 2 times per day [Active]; - PMHx: 10:55 Hypothyroidism; iw - PSHx: 10:57 catarcats; hysterectomy; iw 10:58 breast cyst removed; knee; Cholecystectomy; iw - Immunization history:: Adult Immunizations up to date. - Infectious Disease History:: Denies. - Social history:: Smoking status: . - Family history:: not pertinent. Screenin:20 [facility] ED Fall Risk Assessment (Adult) History of falling in the last 3 months, ld1 including since admission No falls in past 3 months (0 pts) Confusion or Disorientation No (0 pts) Intoxicated or Sedated No (0 pts) Impaired Gait No (0 pts) Mobility Assist Device Used No (0 pt) Altered Elimination No (0 pt) Score/Fall Risk Level 0 - 2 = Low Risk Oriented to surroundings, Hourly rounding (assess needs \T\ fall precautionary measures) done. Abuse screen: Denies threats or abuse. Denies injuries from another. Nutritional screening: No deficits noted. Tuberculosis screening: No symptoms or risk factors identified. Assessment: 11:20 General: Appears in no apparent distress. comfortable, Behavior is calm, cooperative, ld1 appropriate for age. Pain: Denies pain. Neuro: Level of Consciousness is awake, alert, obeys commands, Oriented to person, place, time, situation. Cardiovascular: Capillary refill < 3 seconds Patient's skin is warm and dry. Rhythm is sinus rhythm. Respiratory: Airway is patent Respiratory effort is even, unlabored. GI: Abdomen is flat, non-distended. : No signs and/or symptoms were reported regarding the genitourinary system. EENT: No signs and/or symptoms were reported regarding the EENT system. Derm: No signs and/or symptoms reported regarding the dermatologic system. Musculoskeletal: No signs and/or symptoms reported regarding the musculoskeletal system. Vital Signs: 10:53 BP 125 / 85; Pulse 81; Resp 16; Pulse Ox 98% on R/A; Weight 57.15 kg; Height 5 ft. 2 iw in. ; Pain 0/10; 11:20 BP 137 / 79; Pulse 71; Resp 18; Pulse Ox 98% on R/A; Pain 0/10; ld1 12:19 BP 141 / 74; Pulse 65; Resp 18; Temp 97.8(TE); Pulse Ox 99% on R/A; Pain 0/10; ld1 13:24 BP 142 / 65 Supine; Pulse 75; Resp 11; Pulse Ox 98% on R/A; ld1 13:25 BP 153 / 79 Sitting; Pulse 75; Resp 11; Pulse Ox 98% on R/A; ld1 13:26 BP 136 / 82 Standing; Pulse 76; Resp 14; Pulse Ox 98% on R/A; ld1 10:53 Body Mass Index 23.05 (57.15 kg, 157.48 cm) iw 10:53 Pain Scale: Adult iw 11:20 Pain Scale: Adult ld1 12:19 Pain Scale: Adult ld1 ED Course: 10:45 Patient arrived in ED. ts1 10:53 Nahun Arnold MD is Attending Physician. rosalie 10:55 Triage completed. iw 10:58 Arm band placed on. iw 11:00 Kalli Mccauley, RN is Primary Nurse. ld1 11:19 UA Rfx Oren Cult if indicated Sent. ld1 11:20 Patient has correct armband on for positive identification. Placed in gown. Bed in low ld1 position. Call light in reach. Side rails up X2. plastic dolls mold filler on. Pulse ox on. NIBP on. Door closed. Noise minimized. Warm blanket given. 11:20 No provider procedures requiring assistance completed. Inserted saline lock: 20 gauge ld1 in right forearm, using aseptic technique. Blood collected. Flushed with 10 mL NS. 11:32 XRAY Chest (1 view) In Process Unspecified. EDMS 11:36 CT Head Brain wo Cont In Process Unspecified. EDMS 12:01 Joanna Jacob MD is Hospitalizing Provider. rosalie 13:19 CT Chest, Abdomen, Pelvis - W/Contrast In Process Unspecified. EDMS Administered Medications: 11:19 Drug: Famotidine IVP 20 mg IVP once; dilute with 10 mL 0.9% NaCl; give over 2 minutes ld1 Route: IVP; Site: right forearm; 13:30 Follow up: Response: No adverse reaction ld1 11:19 Drug: NS 0.9% IV 1000 ml IV at 1000 ml once; to be given as a bolus over 60 minutes ld1 Route: IV; Rate: 1000 ml; Site: right forearm; 12:19 Drug: Rocephin IV 1 grams IV at per protocol once; Given slow IV push per pharmacy ld1 instructions Route: IV; Rate: per protocol; Site: right antecubital; 13:31 Follow up: Response: No adverse reaction; IV Status: Completed infusion ld1 Medication: 11:20 VIS not applicable for this client. ld1 Outcome: 12:02 Decision to Hospitalize by Provider. rosalie 15:42 Patient left the ED. mb9 Signatures: Dispatcher [employer] EDMS Nahun Arnold MD MD cha Williams, Irene, RN RN Kalli Mccauley RN RN ld1 Sahra Costa RN RN mb9 Elana Benedict, RAJI [facility] ts1 Corrections: (The following items were deleted from the chart) 10:59 10:53 BP 125 / 85; Pulse 81bpm; Resp 16bpm; Pulse Ox 98% RA; iw iw 13:30 13:24 BP 142 / 65; Pulse 75bpm; Resp 11bpm; Pulse Ox 98% RA; ld1 ld1 13:30 13:25 BP 153 / 79; Pulse 75bpm; Resp 11bpm; Pulse Ox 98% RA; ld1 ld1 13:30 13:26 BP 136 / 82; Pulse 76bpm; Resp 14bpm; Pulse Ox 98% RA; ld1 ld1
[2025-03-29 12:06] LABS: Bilirubin Direct < 0.2 mg/dL (0-0.2); Bilirubin Indirect, Calculated 0.2 mg/dL (0.2-0.8)
[2025-03-29 12:50] LABS: Thyroid Stimulating Hormone 5.43 uIU/mL (0.358-3.740)
--- NOTE | 2025-03-29 13:33 | RAD REPORT ---
EXAM: Chest Abdomen Pelvis W Cont CLINICAL INDICATION: Female, 69 years CHEST PAIN TECHNIQUE: CT chest, abdomen and pelvis was performed, with IV contrast, as per department protocol. Axial, sagittal and coronal reconstructions were obtained. One or more of the following dose reduction techniques were used: Automated exposure control, adjustment of the mA and/or kV according to the patient size, and/or iterative reconstruction. Unless otherwise specified, incidental findings do not require dedicated imaging follow-up. [id number]. COMPARISON: No prior exam. FINDINGS: ---THORAX--- LOWER NECK AND CHEST WALL: Visualized thyroid gland and soft tissues are normal. MEDIASTINUM AND LYMPH NODES: No mediastinal mass or fluid collection. Normal size mediastinal, hilar, and axillary lymph nodes. Mild distal esophageal thickening. THORACIC AORTA: No thoracic aortic aneurysm. PULMONARY ARTERIES: Caliber is within normal limits. HEART: Normal heart size. Mild coronary artery calcifications.No significant pericardial effusion. LUNGS AND AIRWAYS: Airways are clear. No evidence of airspace or interstitial process. No suspicious and/or stable pulmonary nodules. PLEURA: No pleural effusion. No pneumothorax. ---ABDOMEN/PELVIS--- UPPER GI: No significant abnormality. LIVER: No significant focal abnormality. GALLBLADDER/BILE DUCTS: Distended gallbladder with possible trace pericholecystic fluid? PANCREAS: No mass, ductal dilation, or duncan-pancreatic fluid. SPLEEN: Unremarkable. ADRENALS: No adrenal masses. KIDNEYS AND URETERS: No hydronephrosis.No suspicious renal mass.No renal calculi. ABDOMINAL AORTA AND OTHER VESSELS: Mild atherosclerotic changes. PERITONEUM: Nonspecific free fluid. LYMPH NODES: No pathologic lymphadenopathy. ABDOMINAL WALL: Unremarkable SMALL BOWEL/COLON: Small bowel has normal course and caliber. No colonic wall thickening or pericolon ic inflammatory changes. URINARY BLADDER: Underdistended but grossly unremarkable. REPRODUCTIVE ORGANS: No pathologic process. ---COMBINED--- MUSCULOSKELETAL: Slight angulation of several left anterior ribs including the left third, fourth, fi fth ribs. These likely reflect age-indeterminate rib fractures. Remote right fourth rib fracture. ADDITIONAL FINDINGS: None. IMPRESSION: No evidence of significant trauma to the chest, abdomen, or pelvis. Possible trace pericholecystic fluid which is nonspecific. If there is concern for acute cholecystiti s, consider right upper quadrant ultrasound. Age-indeterminate nondisplaced left-sided rib fractures. Correlate with site of pain/trauma.
[2025-03-29] MEDS ORDERED: HYDROCODONE/APAP 5/325 MG TAB PO PRN (14:20)
[2025-03-29] MEDS: NA CHLORIDE 0.9% 1,000 ML IV SCH (15:49)
[2025-03-29 15:54] VITALS: O2SAT 98
[2025-03-29 16:21] VITALS: BMI 23.0
--- NOTE | 2025-03-29 16:27 | P.HP ---
Certification for Inpatient Patient admitted to: Observation With expected LOS: <2 Midnights Patient will require the following post-hospital care: None Practitioner: I am a practitioner with admitting privileges, knowledge of patient current condition, hospital course, and medical plan of care. Services: Services provided to patient in accordance with Admission requirements found in Title 42 Section 412.3 of the Code of Federal Regulations Patient History Date of Service: 03/29/25 History of Present Illness: 69-year-old female with history of hypothyroidism presents to the emergency department chief complaint of syncope. She was at home with her family in the kitchen making coffee and her who is in another room heard a loud noise. He came into the kitchen and found her lying on her back unresponsive. She began to come to and he tried to assist her to stand up and she again lost consciousness in his arms. He helped carry her to a chair and as he was lifting her in the chair she began to regain consciousness. She does not recall anything after starting to make the coffee or anything until she was in the chair. She denies any chest pain, palpitations, headache or other symptoms before losing consciousness. She denies similar episodes in the past, no known cardiac history. She was evaluated in the ER her labs were significant for an initial high sensitive troponin that was normal, TSH which was 5.43 and free T4 which is 0.71, she reports that her psychiatrist and neurologist had adjusted a couple of her medications around 2 months ago but otherwise there have not been any changes. EKG showed normal sinus rhythm CT chest abdomen pelvis was performed which showed age indeterminant nondisplaced left-sided rib fractures, no evidence of significant trauma in the chest abdomen or pelvis, possible trace pericholecystic fluid which is nonspecific. Patient has no right upper quadrant tenderness whatsoever, orthostatic vital signs were performed and negative. Patient be admitted under observation for syncopal event Allergies No Known Allergies Allergy (Unverified 03/29/25 15:09) Home Medications: Galantamine HBr [Galantamine ER] 8 mg PO BID 03/29/25 Levothyroxine [Synthroid*] 1 tab PO DAILY 03/29/25 Memantine HCl 10 mg PO BID 03/29/25 OLANZapine [Olanzapine] 0.5 tab PO DAILY 03/29/25 Sertraline [Zoloft*] 50 mg PO DAILY 03/29/25 - Past Medical/Surgical History Has patient received pneumonia vaccine in the past: Yes -: hypothyroid -: alzheimer's (early stages) -: cataract surgery -: hysterectomy - Social History Smoking Status: Never smoker Alcohol use: No CD- Drugs: No Caffeine use: Yes Place of Residence: Home Review of Systems 10-point ROS is otherwise unremarkable Cardiovascular: Other (Syncope) Physical Examination - Vital Signs Temperature: 97.8 F Blood Pressure: 136/82 Pulse: 76 Respirations: 14 - Physical Exam General: Alert, In no apparent distress, Oriented x3 HEENT: Atraumatic, PERRLA, EOMI Neck: Supple, 2+ carotid pulse no bruit, No LAD Respiratory: Clear to auscultation bilaterally, Normal air movement Cardiovascular: Regular rate/rhythm, Normal S1 S2 Gastrointestinal: Normal bowel sounds, No tenderness Musculoskeletal: No tenderness Integumentary: No rashes Neurological: Normal gait, Normal speech, Normal strength at 5/5 x4 extr - Studies Laboratory Data (last 24 hrs) 03/29/25 03/29/25 03/29/25 11:15 11:15 11:15 WBC 7.10 Hgb 14.3 Hct 42.5 Plt Count 226 PT 11.1 INR 0.97 Sodium 135 L Potassium 4.0 BUN 8 Creatinine 0.82 Glucose 92 Magnesium 2.4 Total Bilirubin 0.4 AST 19 ALT 22 Alkaline Phosphatase 85 Lipase 47 Assessment and Plan - Plan Assessment: Syncope Left 3rd through 5th nondisplaced rib fractures Hypothyroidism Alzheimer's Plan: Syncope Trend troponins, monitor on telemetry Orthostatic vital signs negative Evaluate home medications EKG shows sinus rhythm Left 3rd through 5th nondisplaced rib fractures Unclear if these are acute Incentive spirometry, as needed pain medications Hypothyroidism Evaluate home dose of levothyroxine, may need dose adjustment Alzheimer's Continue home medications when verified Evaluate side effect profile DVT PPX: Lovenox Code status: Full Discharge Plan: Home Plan to discharge in: 24 Hours - Advance Directives Does patient have a Living Will: No Does patient have a Durable POA for Healthcare: No - Code Status/Comfort Care Code Status Assessed: Yes (Full code) Critical Care: No Time Spent Managing Pts Care (In Minutes): 65
[2025-03-30 05:27] LABS: Absolute Eosinophils 0.1 K/uL (0-0.5); Absolute Lymphocytes (CBC) 1.2 K/uL (0.7-4.9); Absolute Monocytes 0.3 K/uL (0.1-1.3); Absolute Neutrophil 2.4 K/uL (1.8-8.0); Basophils % 0.7 % (0-1.3); Hematocrit 37.2 % (36.0-45.0); Hemoglobin 12.7 g/dL (12.0-15.0); Lymphocytes % 29.8 % (15.3-44.8); MCHC 34.1 g/dL (32.0-36.0); MCV 93.8 fL (80-100); MPV 8.5 fL (7.6-11.3); Monocytes % 8.4 % (3.3-12.3); Neutrophils % 59.1 % (41.7-73.7); Nucleated Red Blood Cells % 0.2 % (0-0); Platelets 183 thou/uL (152-406); RBC Red Blood Cell Count 3.96 M/uL (3.86-4.86); Red Cell Distribution Width 13.8 % (12.1-15.2)
[2025-03-30 05:42] LABS: Magnesium 2.3 mg/dL (1.6-2.4)
[2025-03-30] MEDS: ENOXAPARIN 40 MG/0.4 ML SQ SCH (08:43)
[2025-03-30] MEDS: OLANZapine 2.5 MG TAB PO SCH (08:44)
[2025-03-30] MEDS: GALANTAMINE 4 MG TAB PO SCH (08:44)
[2025-03-30] MEDS: SERTRALINE HCL 50 MG TAB PO SCH (08:44)
[2025-03-30] MEDS: MEMANTINE HCL 10 MG TABLET PO SCH (08:44)
[2025-03-30] MEDS ORDERED: OLANZAPINE 7.5 MG PO SCH (09:00)
[2025-03-30] MEDS ORDERED: HOME MED 1 EA UNK (Galantamine Hbr [Galantamine Er] 8 MG Cap24h.Pel) PO SCH (09:00)
--- NOTE | 2025-03-30 13:07 | P.DS ---
Admission Date: 03/29/25 Discharge Date: 03/30/25 Disposition: ROUTINE DISCHARGE Discharge Condition: GOOD Brief History of Present Illness: 69-year-old female with history of hypothyroidism presents to the emergency department chief complaint of syncope. She was at home with her family in the kitchen making coffee and her who is in another room heard a loud noise. He came into the kitchen and found her lying on her back unresponsive. She began to come to and he tried to assist her to stand up and she again lost consciousness in his arms. He helped carry her to a chair and as he was lifting her in the chair she began to regain consciousness. She does not recall anything after starting to make the coffee or anything until she was in the chair. She denies any chest pain, palpitations, headache or other symptoms before losing consciousness. She denies similar episodes in the past, no known cardiac history. She was evaluated in the ER her labs were significant for an initial high sensitive troponin that was normal, TSH which was 5.43 and free T4 which is 0.71, she reports that her psychiatrist and neurologist had adjusted a couple of her medications around 2 months ago but otherwise there have not been any changes. EKG showed normal sinus rhythm CT chest abdomen pelvis was performed which showed age indeterminant nondisplaced left-sided rib fractures, no evidence of significant trauma in the chest abdomen or pelvis, possible trace pericholecystic fluid which is nonspecific. Patient has no right upper quadrant tenderness whatsoever, orthostatic vital signs were performed and negative. Patient be admitted under observation for syncopal event Hospital Course: Assessment: Syncope Left 3rd through 5th nondisplaced rib fractures Hypothyroidism Alzheimer's Patient was admitted to the hospital for syncopal event. She was kept under observation, monitored telemetry with no significant arrhythmia. Troponins were trended and negative x 3. Patient is ambulatory without any symptoms of dizziness/lightheadedness or near syncope. Orthostatics were assessed and negative. Patient stable for discharge and outpatient follow-up with her PCP, cardiology. Vital Signs/Physical Exam: Temp Pulse Resp BP Pulse Ox 97.3 F 62 16 149/69 H 99 03/30/25 08:00 03/30/25 08:00 03/30/25 08:00 03/30/25 08:00 03/30/25 08:00 General: Alert, In no apparent distress, Oriented x3 HEENT: Atraumatic, PERRLA Neck: Supple, JVD not distended Respiratory: Clear to auscultation bilaterally, Normal air movement Cardiovascular: Regular rate/rhythm, Normal S1 S2 Gastrointestinal: Normal bowel sounds, No tenderness Musculoskeletal: No tenderness Integumentary: No rashes Neurological: Normal gait, Normal speech Laboratory Data at Discharge: WBC 4.10 thou/uL (4.3-10.9) L 03/30/25 04:58 Hgb 12.7 g/dL (12.0-15.0) D 03/30/25 04:58 Hct 37.2 % (36.0-45.0) 03/30/25 04:58 Plt Count 183 thou/uL (152-406) 03/30/25 04:58 PT 11.1 SECONDS (10-13.0) 03/29/25 11:15 INR 0.97 03/29/25 11:15 Sodium 141 mEq/L (136-145) D 03/30/25 04:58 Potassium 4.0 mEq/L (3.5-5.1) 03/30/25 04:58 BUN 11 mg/dL (7-18) 03/30/25 04:58 Creatinine 0.58 mg/dL (0.55-1.02) 03/30/25 04:58 Glucose 93 mg/dL (74-106) 03/30/25 04:58 Magnesium 2.3 mg/dL (1.6-2.4) 03/30/25 04:58 Total Bilirubin 0.4 mg/dL (0.2-1.0) 03/29/25 11:15 AST 19 U/L (15-37) 03/29/25 11:15 ALT 22 U/L (13-56) 03/29/25 11:15 Alkaline Phosphatase 85 U/L (45-117) 03/29/25 11:15 Lipase 47 U/L (13-75) 03/29/25 11:15 Home Medications: Galantamine HBr [Galantamine ER] 8 mg PO BID 03/29/25 Memantine HCl 10 mg PO BID 03/29/25 OLANZapine [Olanzapine] 0.5 tab PO DAILY 03/29/25 Sertraline [Zoloft*] 50 mg PO DAILY 03/29/25 Levothyroxine [Synthroid*] 100 mcg PO [id number] #30 tab 03/30/25 New Medications: Levothyroxine [Synthroid*] 100 mcg PO [id number] #30 tab Physician Discharge Instructions: -DC IV and DC home -Follow-up with PCP in 1 to 2 weeks -Follow-up with Cardiology in 1 to 2 weeks for evaluation for further cardiac testing including echocardiogram and stress testing as needed. -Please call Dr. Jacob at [phone] if any questions regarding hospital stay -Please call nursing station at [phone] if any nursing or medication questions -Return to the emergency room if symptoms worsen Diet: Regular Activity: Ad terra Followup: NONE,NONE [Primary Care Provider] - Time spent managing pt's care (in minutes): 45
[2025-03-30 14:09] VITALS: BP 138/65; TEMP 97.8
--- NOTE | 2025-03-30 15:32 | RAD REPORT ---
EXAM: US Carotid Artery Bilateral CLINICAL INDICATION: syncope TECHNIQUE: Real-time grayscale, color flow, and spectral Doppler sonographic images were obtained of the extracranial carotid system using a linear transducer. Arterial peak systolic velocities are recorded as follows. COMPARISON: No prior exam. FINDINGS: RIGHT: Common carotid artery: 61 cm/s Internal carotid artery: 106 cm/s Right ICA/CCA ratio: 1.7 Plaque None External carotid artery: 71 cm/s Vertebral artery: Antegrade LEFT: Common carotid artery: 79 cm/s Internal carotid artery: 126 cm/s Left ICA/CCA ratio: 1.59 Plaque None External carotid artery: 92 cm/s Vertebral artery: Antegrade IMPRESSION: No hemodynamically significant stenosis (greater than 50%) within the extracranial internal carotid a rteries. The degrees of stenosis, if any, are quantified according to the consensus statement of the Society o f Radiologists in Ultrasound (SRUS). Please refer to Franco E, Duane C, Lisa G et al. Carotid Artery Stenosis: Barrios-Scale and Doppler US Diagnosis--Society of Radiologists in Ultrasound Consensus Conference. Radiology. 2003;229(2):340-6. doi:10.1148/[id number]
[2025-03-30] MEDS ORDERED: SERTRALINE HCL 50 MG TAB PO SCH (21:00)
[2025-03-30] MEDS ORDERED: OLANZapine 2.5 MG TAB PO SCH (21:00)
[2025-03-31] MEDS ORDERED: LEVOTHYROXINE SOD 0.05 MG TABLET PO SCH (06:30)
--- NOTE | 2025-04-01 12:27 | EKG ---
Test Date: 2025-03-29 Test Time: 11:08:42 Plant Cytologist: KHANG Butts MEASUREMENT RESULTS: Intervals: Rate: 70 IL: 128 QRSD: 78 QT: 384 QTc: 414 [place]: P: 62 IL: 128 QRS: 77 T: 23 INTERPRETIVE STATEMENTS: Normal sinus rhythm Normal ECG No previous ECG available for comparison Electronically Signed On 04-01-25 12:21:30 CDT by Niko Da Silva
== END 2025-03-30 14:33 | disposition home or self-care (01) ==
LOC: ER 10:43 → ERHOLD 14:20 → 2ND 14:54
PROVIDERS: ADMIT Hospitalist; ATTEND Hospitalist
DX: R55 Syncope and collapse (principal); E03.9 Hypothyroidism, unspecified; G30.9 Alzheimer's disease, unspecified; F02.80 Dementia in other diseases classified elsewhere, unspecified severity, without behavioral disturbance, psychotic disturbance, mood disturbance, and anxiety; S22.42XD Multiple fractures of ribs, left side, subsequent encounter for fracture with routine healing
CPT/HCPCS: 96365; 93005; 85025 ×2; 81001; 80048 ×2; 36415; 83735 ×2; 85610; 80076; 84443; 84484 ×3; 84439; 83690; 83880; 70450; 71260; 74177; 71045; 93880; 94010; 96375; 99285; Q9967; J1650; J7030 ×3; J0696; G0378 ×3